=== PATIENT | female | born 1965 | race Caucasian/White ===

== ENCOUNTER 2019-04-28 15:35 | Inpatient (IN) | payer OTHER ==
[~2019-04-28] VITALS: Ht 165.1 cm; Wt 74.9 kg
--- NOTE | ~2019-04-28 | HC ---
[facility] [place] [address] CONSULTATION Name: ROBERT BOYD Room #: 204-P ADM IN M.R.#: [id number] Admission: 04/28/19 Attend Phys: Nba Lazaro MD Discharge: Date of : 63 Report #: [id number] THIS REPORT FOR: cc: Fidel Bernstein MD, Shyam MD Al-Absi,Kel Pires MD ~ CC: Nba Bernstein DATE OF SERVICE: 04/28/2019 REASON FOR CONSULTATION: Elevated creatinine. REASON FOR PRESENTATION: Shortness of breath. HISTORY OF PRESENT ILLNESS: A 54-year-old with past medical history of diabetes mellitus, hypertension, lower extremity amputation. She is also known to have COPD. The patient has never been evaluated in our facility before. She presented reporting that she has been having issues with the shortness of breath. Apparently, the patient has been hospitalized at another facility, [facility] for what she describes as pneumonia and has required some antibiotics. Details of those hospitalizations are not available. The patient resides in a nursing facility and she was found to have extensive lower extremity edema and worsening shortness of breath for which she was sent to the Emergency Room. She was found to be extremely hypoxemic. She was admitted to further evaluate her pulmonary status after she was found to have hypoxemia, metabolic acidosis and worsening pulmonary infiltrates. The patient's creatinine on presentation was elevated at 2.6. The patient denies prior knowledge of any kidney problems. We do not know her baseline. I was consulted to assist with the management of her chronic kidney disease, potential acute kidney injury. ALLERGIES: Numerous and they are listed in the medical chart. AMONGST THEM AMOXICILLIN, AZITHROMYCIN, CIPROFLOXACIN, DOXYCYCLINE MEDICATIONS: 1. Nifedipine. 2. Vancomycin. 3. Furosemide. 4. Levothyroxine. 5. Zestril. 6. Insulin. PAST MEDICAL HISTORY: 1. Diabetes mellitus. 2. Hypertension. [facility] [address] [place] [address] CONSULTATION Name: ROBERT BOYD Room #: [facility] IN .R.#: [id number] Admission: 04/28/19 Attend Phys: Nba Lazaro MD Discharge: Date of : 63 Report #: [id number] 3. Chronic opiate dependence. 4. Anxiety. 5. Lower extremity amputation. 6. Hypothyroidism. 7. Recent prolonged hospitalizations for what she describes as pneumonia. 8. Recent PICC line with vancomycin initiation. SOCIAL HISTORY: Resides in a nursing facility. There is significant history of smoking in the past. FAMILY HISTORY: Hypertension. REVIEW OF SYSTEMS: GENERAL: Significant for fever and chills. CARDIOVASCULAR: Significant for shortness of breath. PULMONARY: Significant for cough, oxygen dependence, shortness of breath. GASTROINTESTINAL: No nausea or vomiting. GENITOURINARY: No frequency, no urgency. MUSCULOSKELETAL: She is an amputee. PHYSICAL EXAMINATION: GENERAL: She was very anxious when evaluated this morning, temperature was 36.5, pulse rate was 83, and blood pressure was 166/90. HEAD AND NECK: Elevated jugular venous pressure. CHEST: Bilateral rhonchi and crackles. CARDIOVASCULAR: Regular with no rub. ABDOMEN: Soft, nontender with extensive abdominal wall edema. LOWER EXTREMITIES: She is an amputee on the left side. She has extensive anasarca. LABORATORY DATA: Reviewed. Hemoglobin is 6.7. Sodium is 141, potassium 3.8, chloride is 110, carbon dioxide is 19, BUN is 65 and creatinine is 2.6. IMPRESSION AND PLAN: 1. Chronic kidney disease. 2. Anasarca. 3. Metabolic acidosis. 4. Anemia. 5. Extensive chronic lung changes on the chest x-ray. 6. We really do not have the patient's previous kidney levels. It would be very helpful to obtain her medical records from [facility]. I will initiate the appropriate workup for the elevated creatinine with appropriate laboratory and imaging investigations. 7. Discussed with Dr. Lazaro, the patient's pulmonary status has worsened and she will need to initiated on Lasix drip for better control of her pulmonary edema and volume status. [address] [address] CONSULTATION Name: ROBERT BOYD Room #: 204-P ADM IN M.R.#: [id number] Admission: 04/28/19 Attend Phys: Nba Lazaro MD Discharge: Date of : 63 Report #: [id number] 8. Transferred to the ICU. 9. Place Looney catheter. 10. She has old criteria of right-sided heart failure, cor pulmonale and her pulmonary artery pressure was significantly elevated on the cardiac echo. She is at risk of decompensation with the diuresis. 11. Anemia workup. 12. Very guarded prognosis and we will continue to follow. By: [id number] Kel Li MD /nt
[~2019-04-28 15:35] MED LIST: VANCOMYCIN750 MG/151 IV
[2019-04-28 15:43] VITALS: BP 116/69
[2019-04-28 16:26] LABS: HCO3 16.9 mmol/L (22.0-26.0); PCO2 36.6 mmHg (35.0-45.0); PO2 105.7 mmHg (80.0-100.0); sO2 97.3 % (92.0-98.0)
[2019-04-28 16:27] LABS: pH 7.283 (7.360-7.450)
[2019-04-28 17:02] LABS: ABSOLUTE NEUTROPHILS 4.8 thou/uL (1.4-8.2); BASOPHILS 1.4 % (0.0-2.0); EOSINOPHILS 1.6 % (0.0-3.0); HEMATOCRIT 22.7 % (37.0-47.0); HEMOGLOBIN 7.1 gm/dL (12.0-15.0); LYMPHOCYTES 13.7 % (24.0-44.0); MCH 26.9 pg (26.0-34.0); MCHC 31.4 g/dL (28.0-37.0); MCV 85.8 fL (80.0-100.0); MONOCYTES 9.7 % (1.0-8.0); PLATELET COUNT 207 thou/uL (150-400); POLYS 73.6 % (36.0-66.0); RBC 2.65 mil/uL (4.20-5.00); RDW 18.7 % (10.5-14.5); WBC 6.6 thou/uL (4.0-11.0)
[2019-04-28 17:12] LABS: ANION GAP 10 mmol/L (7-16); BUN 68 mg/dL (7-18); CALCIUM 7.8 mg/dL (8.5-10.1); CHLORIDE 111 mmol/L (98-107); CO2 21 mmol/L (21-32); CREATININE 2.6 mg/dL (0.6-1.0); GLUCOSE 48 mg/dL (74-106); POTASSIUM 3.5 mmol/L (3.5-5.1); SODIUM 142 mmol/L (136-145)
[2019-04-28 17:20] LABS: TROPONIN-I <0.06 ng/mL (<0.06)
[2019-04-28 18:11] VITALS: BP 111/64
[2019-04-28] MEDS ORDERED: NIFEDIPINE ER30 M1 PO (18:39)
[2019-04-28] MEDS ORDERED: PROTONIX40 M2 PO (18:39)
[2019-04-28] MEDS ORDERED: TRAMADOL 50 MG50 MG PO (18:40)
[2019-04-28] MEDS ORDERED: PROBIOTIC250 MG PO (18:40)
[2019-04-28] MEDS ORDERED: MEPILEX1 EACH TOP (18:41)
[2019-04-28] MEDS ORDERED: ASA81BEC PO (18:42)
[2019-04-28] MEDS ORDERED: ALBUTEROL2.5 MG/31 INH (18:42)
[2019-04-28] MEDS ORDERED: BUSPIRONE HCL10 MG PO (18:43)
[2019-04-28] MEDS ORDERED: MAXIPIME1 GM IV (18:44)
[2019-04-28] MEDS ORDERED: BENTYL 10 MG CA10 MG PO (18:44)
[2019-04-28] MEDS ORDERED: FUROSEMIDE 20 M20 MG PO (18:44)
[2019-04-28] MEDS ORDERED: MUCUS RELIEF600 M1 PO (18:45)
[2019-04-28] MEDS ORDERED: LORCET 5-325 M1 EACH PO (18:45)
[2019-04-28] MEDS ORDERED: ZESTRIL40 MG PO (18:46)
[2019-04-28] MEDS ORDERED: LEVO-T50 MCG PO (18:46)
[2019-04-28] MEDS ORDERED: LANTUS SUBQ (18:46)
[2019-04-28] MEDS ORDERED: HUMULIN R500 UNIT/M SUBQ (18:49)
--- NOTE | 2019-04-28 19:26 | NUR ---
ATTEMPTED TO CALL REPORT TO CCU AT 1825. US TRANSFERRED CALL TO NURSE WHO DID NOT ANSWER. CALLED BACK AT 1840 AND NURSE STATED ROOM WAS DIRTY AND PLACED ME ON HOLD AND NEVER CAME BACK TO PHONE. ATTEMPTED TO CALL REPORT AGAIN AT THIS TIME WITH NO ANSWER
[2019-04-28 20:17] VITALS: BP 127/79
[2019-04-28 20:30] VITALS: BP 131/66
[2019-04-29 00:16] VITALS: BP 133/74
[2019-04-29 04:45] VITALS: BP 130/65
[2019-04-29 06:06] LABS: HEMOGLOBIN 6.7 gm/dL (12.0-15.0); MONOCYTES 10.5 % (1.0-8.0)
[2019-04-29 06:09] LABS: ABSOLUTE NEUTROPHILS 4.2 thou/uL (1.4-8.2); HEMATOCRIT 20.9 % (37.0-47.0); LYMPHOCYTES 19.1 % (24.0-44.0); MCH 27.5 pg (26.0-34.0); MCHC 32.1 g/dL (28.0-37.0); MCV 85.6 fL (80.0-100.0); PLATELET COUNT 197 thou/uL (150-400); POLYS 67.4 % (36.0-66.0); RBC 2.44 mil/uL (4.20-5.00); RDW 18.8 % (10.5-14.5); WBC 6.3 thou/uL (4.0-11.0)
[2019-04-29 06:16] LABS: ANION GAP 12 mmol/L (7-16); BUN 65 mg/dL (7-18); CALCIUM 7.4 mg/dL (8.5-10.1); CHLORIDE 110 mmol/L (98-107); CO2 19 mmol/L (21-32); CREATININE 2.6 mg/dL (0.6-1.0); GLUCOSE 71 mg/dL (74-106); MAGNESIUM 2.5 mg/dL (1.8-2.4); POTASSIUM 3.8 mmol/L (3.5-5.1); SODIUM 141 mmol/L (136-145); TROPONIN-I <0.06 ng/mL (<0.06)
[2019-04-29 07:05] VITALS: BP 147/78
--- NOTE | 2019-04-29 07:36 | NUR ---
PT ARRIVED ON UNIT AROUND 2019 FROM ED. PT RESIDES AT [facility] WHERE OXYGEN LEVEL WAS AT 80%. PT ARRIVED ON UNIT ON 8L NONREBREATHER AND SATURATION AT 95%. PT VITALS WERE STABLE. PT MEDICATION LIST UPDATED PER PAPERWORK SENT FROM FACILITY. PT BLOOD SUGAR WAS AT 62. CALLED [facility] [employer] TENDER PHYSICIAN TO GET HYPOGLYCEMIC PROTOCOL ORDERED. PT GIVEN JUICE AND MEDICATION ACCORDING TO PROTOCOL. PT BLOOD SUGAR INCREASED TO 93. CALLED PHYSICIAN TO HAVE MEDICATIONS RESTARTED AND ADVISED THAT THE ATTENDING WOULD HANDLE. PT SLEPT THRU NIGHT AND AROUND 0600 AWAKENED IN PANIC STATING "I CANNOT BREATH. HELP ME. TURN THE OXYGEN UP" CONTACTED PHYSICIAN AND RECEIVED ORDERS FOR PRN BREATHING TREATMENTS. ADVISED PHYSICIAN THAT HGB WAS 6.7 AND WAS ADVISED THAT ATTENDING WOULD DECIDE FURTHER ACTIONS BASED ON PATIENTS MEDICAL HISTORY. PATIENT DOES NOT LIKE BEING IN THE ASSIGNED ROOM STATING CLOSTROPHIC. ADVISED THAT ONCE A NEW ROOM OPENED THAT WE COULD MOVE. ADMISSION ASSESSMENT CHARTED. CONSENTS NEED TO BE SIGNED. WILL CONTINUE TO MONITOR PATIENT CLOSELY.
[2019-04-29 08:18] LABS: % SATURATION 8 % (20-39); IRON 13 ug/dL (50-170); TIBC 160 ug/dL (250-450)
--- NOTE | 2019-04-29 10:30 | 2DMMODE ---
[facility] [place] [address] 2 D/M-MODE ECHOCARDIOGRAM Name: ROBERT BOYD Room #: 200-I ADM IN M.R.#: [id number] Admission: 04/28/19 Attend Phys: Nba Lazaro MD Discharge: Date of : 63 Report #: [id number] THIS REPORT FOR: cc: Fidel Bernstein MD, Shyam MD Lundgren,Aaron Brandt MD [facility] ~ APPROVED REPORT Study performed: 04/29/2019 09:27:56 EXAM: Comprehensive 2D, Doppler, and color-flow Echocardiogram Patient Location: Bedside Room #: 200 Status: routine BSA: 1.84 HR: 86 bpm BP: 130/65 mmHg Rhythm: NSR Other Information Study Quality: Good Indications Congestive Heart Failure COPD Diabetes Dyspnea Hypertension/HDD 2D Dimensions RVDd: 37.38 mm IVSd: 10.16 (7-11mm) LVOT Diam: 20.49 (18-24mm) LVDd: 47.64 mm PWd: 10.16 (7-11mm) Ascending Ao: 32.13 (22-36mm) LVDs: 30.83 (25-40mm) Aortic Root: 33.01 mm IVC: 25.00 mm Volumes Left Atrial Volume (Systole) Single Plane 4CH: 86.04 mL Single Plane 2CH: 47.08 mL LA ESV Index: 37.00 mL/m2 Aortic Valve AoV Peak Kevin.: 1.82 m/s [facility] [address] [place] [address] 2 D/M-MODE ECHOCARDIOGRAM Name: MARIA A BOYDNE Room #: 200-I ADM IN M.R.#: [id number] Admission: 04/28/19 Attend Phys: Nba Lazaro MD Discharge: Date of : 63 Report #: [id number] AO Peak Gr.: 13.32 mmHg LVOT Max P.77 mmHg LVOT Max V: 1.20 m/s ROSE Vmax: 2.17 cm2 Mitral Valve E/A Ratio: 1.2 MV Decel. Time: 189.31 ms MV E Max Kevin.: 1.29 m/s MV A Kevin.: 1.04 m/s MV PHT: 54.90 ms IVRT: 78.43 ms Pulmonary Valve PV Peak Kevin.: 1.16 m/s PV Peak Gr.: 5.39 mmHg Pulmonary Vein P Vein S: 0.79 m/s P Vein A: 0.29 m/s P Vein D: 0.49 m/s P Vein A Dur.: 78.4 msec P Vein S/D Ratio: 1.61 Tricuspid Valve TR Peak Kevin.: 3.53 m/s TR Peak Gr.: 49.85 mmHg PA Pressure: 65.00 mmHg Left Ventricle The left ventricle is normal size. There is normal LV segmental wall motion. There is normal left ventricular wall thickness. The left ventricular systolic function is normal. The left ventricular ejection fraction is within the normal range. LVEF is 60-65%. The left ventricular diastolic function is normal. Right Ventricle The right ventricle is normal size. The right ventricular systolic function is normal. Atria Left atrium is dilated. Right atrium is borderline dilated. Aortic Valve The aortic valve is normal in structure. No aortic regurgitation is present. There is no aortic valvular stenosis. Mitral Valve The mitral valve is normal in structure. Trace mitral regurgitation. No evidence of mitral valve stenosis. [facility] [address] [address] 2 D/M-MODE ECHOCARDIOGRAM Name: ROBERT BOYD Room #: 200-I ADM IN .R.#: [id number] Admission: 04/28/19 Attend Phys: Nba Lazaro MD Discharge: Date of : 63 Report #: [id number] Tricuspid Valve The tricuspid valve is normal in structure. There is mild tricuspid regurgitation. Estimated PAP 60 mmHg. There is moderate pulmonary hypertension. Pulmonic Valve The pulmonary valve is normal in structure. Trace pulmonic regurgitation. Great Vessels The aortic root is normal in size. The inferior vena cava is dilated with no inspiratory collapse. Pericardium Trace pericardial effusion. <Conclusion> 1. Normal echocardiogram with Doppler. Ejection fraction 65%. 2. Valvular heart disease was absent. No significant regurgitant or stenotic lesions. 3. Pulmonary artery systolic pressure of 60 mmHg. 4. No pericardial effusion <ELECTRONICALLY SIGNED> By: Aaron Tejada MD, [facility] 04/29/19 1029 1029 1029 Aaron Tejaad MD, [facility] /INF
[2019-04-29 11:47] LABS: BE(vivo) -10.3 mmol/L (-2 to +3); HCO3 15.3 mmol/L (22.0-26.0); PCO2 32.9 mmHg (35.0-45.0); sO2 82.2 % (92.0-98.0)
[2019-04-29 11:48] LABS: PO2 50.8 mmHg (80.0-100.0); pH 7.286 (7.360-7.450)
[2019-04-29 12:05] VITALS: BP 149/77
--- NOTE | 2019-04-29 12:07 | NUR ---
Initially RD alert for pressure ulcer indicated, however nursing does not report any pressure ulcers at this time. Chart further reviewed, admitted with CHF. Hx DM, left BKA. ST has assessed and recommend modified diet with swallow precautions. Pt has multiple food allergies indicated stating causes hives. dietary aware of these allergies. Pt reports fair appetite but usually eats well. Wts are up 30 lb from pt reported usual of 140 lb. Diuresing however did note may need dialysis if no improvement. Requesting glucerna shakes-ordered. Low nutrition risk with nutrition interventions in place
--- NOTE | 2019-04-29 15:02 | NUR ---
FAXED CLINICAL UPDATE TO [facility] RECEIVED CONFIRMATION AND LEFT MSG WITH CHRISTOPH IN ADM. DP TO FOLLOW.
--- NOTE | 2019-04-29 16:31 | NUR ---
OVER TO SEE PT ~1100 THIS AM. NO BEDS AVAILABLE IN ICU AT THAT TIME.THERE ARE STILL NO BEDS AVAILABLE TO TRANSFER PT OVER TO ICU.WHEN SEEN THE FIRST TIME,PT ON HER PHONE UPON ENTERING ROOM,ORDERING LUNCH.SATS VIA BEDSIDE MONITOR .93%. PT SPEAKING IN FULL SENTENCES.THIS TIME, UPON ENTERING ROOM,FLOOR LITERED W CUPS,SPOON,PT THROWING THINGS OFF BEDSIDE TABLE.PT DEMANDING TO HAVE FOLY CATHETER REMOVED.PUT THAT FLUFF IN ME,PER PT.LONG D/W PT RE:NEED FOR CATHETER,STRICT I&O-PT DOES NOT CARE-I WANT IT OUT.AGREED TO LET ME LISTEN TO HER.PT IS DESATTING W ANXIETY-PT HAVING WHAT RESEMBLES A TEMPER TANTRUM-
--- NOTE | 2019-04-29 16:35 | NUR ---
Case opened to follow for dc planning. Pt currently awaiting transfer to ICU d/t renal/pulm status. Lasix gtt, iv atb, highflow o2 and pulse ox. She is normally on 4liters of o2 and non ambulatory d/t lt bka. She functions at a w/c level and and needs assit with transfers and bathing and dressing. She is a&o3 but anxious and irritable. She has limited insight into her situation. She reports she has been at [facility] lt for a week getting iv atb and therapy.She admitted to [facility] from [facility] and states she lived with friends prior to that. She indicates her next of kin and emergency contact is her son Brent Driscoll. She has been trying to reach him today. [facility] noted that they notified him of her transfer to the hospital. She is and does not want her ex to be contacted. She does maintain contact with her ex sister in law Cathleen Jenkins [phone]. She is aware that [facility] is holding her bed and we will keep them updated for her return there at al. She is agreeable. [place] attempted to contact her son at the number listed with no answer. Pt reports she struggles with copd and depression and anxiety. Will follow.
--- NOTE | 2019-04-29 20:09 | NUR ---
AAOX4. C/O CLAUSTRAPHOBIA; MOVED OUT OF ROOM 200 D/T DOUBLE DOORS. WON'T LEAVE NONREBREATHER IN PLACE, NC PLACED. ABG'S ACIDOTIC, READ TO DR. BOSS. ORDER TO TRANSFER TO ICU. [facility] CALLED BUT NO ICU BEDS TO BE HAD. REPEATEDLY ORDERS COFFEE FROM DIFFERENT STAFF, WANTS THEM REHEATED, AND NEVER DRINKS THEM. CONSTANT CALL LIGHT. CONSTANT COMPLAINTS OF ONE KIND OR ANOTHER. DELANEY PLACED ORDERED ONCE LASIX DRIP ORDERED. SHE HAD BEEN FREQUENTLY INCONTINENT OF URINE, REQUIRING SEVERAL BED CHANGES. COMPLAINED ABOUT DELANEY EVER SINCE IT WAS PLACED, DEMANDING ITS REMOVAL. STATED IF DR. BOSS DID NOT ORDER ITS REMOVAL SHE WOULD "BREAK HIS XIOMARA OFF." SR PER TELE.
[2019-04-29 20:23] VITALS: BP 166/90
[2019-04-29 23:39] LABS: URINE BILIRUBIN NEGATIVE (Negative); URINE BLOOD 1+ (Negative); URINE CLARITY CLOUDY; URINE COLOR YELLOW; URINE GLUCOSE-RANDOM* TRACE (Negative); URINE KETONES NEGATIVE (Negative); URINE NITRITE-REFLEX NEGATIVE (Negative); URINE PROTEIN (DIPSTICK) 2+ (Negative); URINE UROBILINOGEN 0.2 E.U./dl (0.2-1.0)
[2019-04-29 23:41] LABS: URINE LEUKOCYTES-REFLEX 1+ (Negative)
[2019-04-30 00:31] LABS: SQUAMOUS 0-3 Few /LPF (0-3)
[2019-04-30 00:32] LABS: BACTERIA-REFLEX 1-9 Few /HPF (None Seen); CELLULAR CASTS 0-3 Few /LPF (None Seen); CRYSTALS None Seen /LPF (None Seen); HYALINE CASTS 0-3 Few /LPF (None Seen); MUCUS 0-3 Light strn/LPF (None Seen); URINE RBC 3-10 Few /HPF (0-2); WBC CLUMPS Moderate (None Seen)
[2019-04-30 04:50] VITALS: BP 174/85
[2019-04-30 06:14] LABS: ABSOLUTE NEUTROPHILS 5.7 thou/uL (1.4-8.2); BASOPHILS 1.3 % (0.0-2.0); EOSINOPHILS 1.3 % (0.0-3.0); HEMATOCRIT 23.6 % (37.0-47.0); HEMOGLOBIN 7.4 gm/dL (12.0-15.0); LYMPHOCYTES 9.7 % (24.0-44.0); MCH 26.9 pg (26.0-34.0); MCHC 31.5 g/dL (28.0-37.0); MCV 85.5 fL (80.0-100.0); MONOCYTES 6.3 % (1.0-8.0); PLATELET COUNT 221 thou/uL (150-400); POLYS 81.4 % (36.0-66.0); RBC 2.76 mil/uL (4.20-5.00); RDW 19.2 % (10.5-14.5)
[2019-04-30 06:27] LABS: ALBUMIN 1.3 g/dL (3.4-5.0); CALCIUM 8.2 mg/dL (8.5-10.1); CREATININE 2.2 mg/dL (0.6-1.0); POTASSIUM 3.4 mmol/L (3.5-5.1); TOTAL BILIRUBIN 0.2 mg/dL (<0.1-1.0); TOTAL PROTEIN 5.7 g/dL (6.4-8.2)
[2019-04-30 07:13] LABS: URINE BILIRUBIN NEGATIVE (Negative); URINE BLOOD 1+ (Negative); URINE CLARITY CLEAR; URINE COLOR YELLOW; URINE GLUCOSE-RANDOM* 1+ (Negative); URINE KETONES NEGATIVE (Negative); URINE LEUKOCYTES TRACE (Negative); URINE NITRITE NEGATIVE (Negative); URINE PROTEIN (DIPSTICK) 2+ (Negative); URINE UROBILINOGEN 0.2 E.U./dl (0.2-1.0)
[2019-04-30 07:15] VITALS: BP 165/77
[2019-04-30 07:22] LABS: BACTERIA None Seen /HPF (None Seen); CASTS None Seen /LPF (None Seen); CRYSTALS None Seen /LPF (None Seen); MUCUS 0-3 Light strn/LPF (None Seen); SQUAMOUS 0-3 Few /LPF (0-3); URINE RBC 0-2 Rare /HPF (0-2); URINE WBC 6-15 Few /HPF (0-5); WBC CLUMPS Few (None Seen); YEAST Present (None Seen)
[2019-04-30 07:36] LABS: URINE CREATININE-RANDOM* <13 mg/dL; URINE PROTEIN-RANDOM* 170.5 mg/dL (<11.9); URINE SODIUM-RANDOM* 123 mmol/L
[2019-04-30 08:02] LABS: ANISOCYTOSIS 1+
--- NOTE | 2019-04-30 08:22 | NUR ---
1900, PT ALERT AND ORIENTED. WANTING TO DRINK FLUIDS AND COFFEE CONSTANTLY. PT PICKING ON HER HEAD BECAUSE, " YOU PEOPLE MAKE ME MAD" SHE SAYS. TOOK TELE MONITOR OFF,AND WOULD NOT ALLOW TO BE REATTACHED. ATIVAN AND TRAMODOL GIVEN X 1 OVER NIGHT. PT STILL ON LASIX DRIP. GOOD URINE OUT PUT. WILL CONTINUE TO MONITOR.
--- NOTE | 2019-04-30 09:17 | EKG ---
[facility] [place] [address] ELECTROCARDIOGRAM REPORT Name: ROBERT BOYD Room #: 204-P ADM IN M.R.#: [id number] Admission: 04/28/19 Attend Phys: Nba Lazaro MD Discharge: Date of : 63 Report #: [id number] THIS REPORT FOR: cc: Fidel Bernstein MD, Shyam MD Lundgren,Aaron Brandt MD [facility] ~ THIS REPORT FOR: //name// [facility] ED Test Date: 2019-04-28 Test Time: 15:38:28 Pat Name: ROBERT BOYD Department: Room: 204 Gender: F Manager Decision Support: SHYANNE : 1965 Requested By: Gregorio Landaverde Order Number: [id number] MD: Aaron Tejada Measurements Intervals [place] Rate: 84 P: 64 HI: 122 QRS: 47 QRSD: 84 T: 83 QT: 389 QTc: 460 Interpretive Statements Sinus rhythm No significant abnormality No previous ECG available for comparison Electronically Signed On 04-30-2019 9:16:03 URGENT CARE by Aaron Tejada [email or web address] <ELECTRONICALLY SIGNED> By: Aaron Tejada MD, [facility] 04/30/19 0916 1538 1538 Aaron Tejada MD, [facility] /EPI
--- NOTE | 2019-04-30 09:28 | EKG ---
[facility] [place] [address] ELECTROCARDIOGRAM REPORT Name: ROBERT BOYD Room #: 204- ADM IN M.R.#: [id number] Admission: 04/28/19 Attend Phys: Nba Lazaro MD Discharge: Date of : 63 Report #: [id number] THIS REPORT FOR: cc: Fidel Bernstein MD, Shyam MD Lundgren, Craig H. MD [facility] ~ THIS REPORT FOR: //name// [facility] Test Date: 2019-04-29 Test Time: 07:35:49 Pat Name: ROBERT BOYD Department: Room: [facility] Gender: F Ordnance Officer: RAJANI : 1965 Requested By: Nba Lazaro Order Number: [id number] MD: Aaron Tejada Measurements Intervals [place] Rate: 87 P: 55 FL: 119 QRS: 32 QRSD: 84 T: 60 QT: 362 QTc: 436 Interpretive Statements Sinus rhythm Ventricular premature complex Borderline short [place] interval Borderline T wave abnormalities No previous ECG available for comparison Electronically Signed On 04-30-2019 9:27:52 VISION CARE ASSOCIATE by Aaron eTjada [email or web address] <ELECTRONICALLY SIGNED> By: Aaron Tejada MD, [facility] 04/30/19 0927 0735 Araon Tejada MD, [facility] /EPI
[2019-04-30 11:20] VITALS: BP 148/65
[2019-04-30 15:35] VITALS: BP 147/77
--- NOTE | 2019-04-30 16:32 | EKG ---
[facility] [place] [address] ELECTROCARDIOGRAM REPORT Name: ROBERT BOYD Room #: 204- ADM IN M.R.#: [id number] Admission: 04/28/19 Attend Phys: Nba Lazaro MD Discharge: Date of : 63 Report #: [id number] THIS REPORT FOR: cc: Fidel Bernstein MD, Shyam MD [place],Dhiraj Swift MD ~ THIS REPORT FOR: //name// [facility] Test Date: 2019-04-30 Test Time: 07:35:59 Pat Name: ROBERT BOYD Department: Room: [facility] Gender: F Terminologist: RAJANI : 1965 Requested By: Aaron Tejada Order Number: [id number] MD: Dhiraj Cerna Measurements Intervals [place] Rate: 82 P: 44 MO: 118 QRS: 14 QRSD: 91 T: 58 QT: 401 QTc: 469 Interpretive Statements Sinus rhythm Borderline short [place] interval No previous ECG available for comparison Electronically Signed On 04-30-2019 16:31:04 CALL CENTER RECEPTIONIST by Dhiraj Cerna [email or web address] <ELECTRONICALLY SIGNED> By: Dhiraj Cerna MD 04/30/19 1631 4 4 Dhiraj Cerna MD /[place]
--- NOTE | 2019-04-30 16:49 | NUR ---
Silvia in admissions at [facility] called to check on the pt. She indicates that the pt's son did not respond to them either and the pt told her he is no longer talking to her. They are holding her bed and she no longer has an option to return to community living with the friend she lived with prior. They kicked her out. No weekend dc anticipated. will follow.
--- NOTE | 2019-04-30 17:26 | NUR ---
ASSUMED CARE PT SHIFT CHANGE. ASSESSMENTS CHARTED. MEDS GIVEN PER MAR. PT MUCH MORE CALM COMPARED TO PREVIOUS BEHAVIORS. PT DID NOT WANT DELANEY CATH IN ANYMORE, PHYSICIAN ORDER TO DC. EXTERNAL FEMALE CATH INITIATED. LASIX GTT CONTINUES AT 10. PT HAD DIARRHEA THROUGHOUT DAY- DR NOTIFIED, ORDERS RECEIVED. BS HIGH 300S, PHYSICIAN NOTIFIED. SSI INITIATED. PT NONCOMPLIANT WITH FLUIDS. DEMANDS DRINKS. PT ANXIOUS DURING AFTERNOON- MANAGED WITH IV ANTIANXIETY MEDS. C/O PAIN--MANAGED WITH PO PAIN MEDS. PT CURRENTLY EATING DINNER IN BED. DENIES NEEDS. WILL CONT TO MONITOR.
[2019-04-30 21:41] VITALS: BP 1419/57
[2019-05-01 00:30] VITALS: BP 132/59; BP 132/74
[2019-05-01 05:00] VITALS: BP 150/72
[2019-05-01 05:02] LABS: HEMATOCRIT 23.5 % (37.0-47.0); HEMOGLOBIN 7.4 gm/dL (12.0-15.0); MCH 26.9 pg (26.0-34.0); MCHC 31.4 g/dL (28.0-37.0); MCV 85.5 fL (80.0-100.0); RBC 2.75 mil/uL (4.20-5.00); WBC 5.2 thou/uL (4.0-11.0)
[2019-05-01 05:19] LABS: ALBUMIN 1.3 g/dL (3.4-5.0); CALCIUM 8.1 mg/dL (8.5-10.1); CREATININE 1.9 mg/dL (0.6-1.0); PHOSPHORUS 5.5 mg/dL (2.5-4.9)
--- NOTE | 2019-05-01 06:05 | NUR ---
ASSESSMENT DOCUMENTED.PT BEEN RESTING IN NO ACUTE DISTRESS.A/OX4.VSS.ON LASIX DRIP PER ORDERS.DIURESING WELL.SR ON MONITOR.PAIN GIVEN FOR C/O SHOULDER PAIN W/RELIEF.PT WAS HYPOGLYCEMIC AT 2100,BLOOD GLUCOSE 47,DEXTROSE GIVEN ORDERED 25MG PER IV PUSH,WITH STABLE BLOOD GLUCOSE OBTAINED.NO OTHER CONCERNS AT THIS TIME.WILL CONT TO MONITOR.
[2019-05-01 07:25] VITALS: BP 157/79
[2019-05-01 11:58] VITALS: BP 148/73
[2019-05-01 16:12] VITALS: BP 142/70
--- NOTE | 2019-05-01 19:44 | NUR ---
RECEIVED PT'S CARE AROUND 0730; PT. RESTING WITH EYES CLOSED; EQUAL CHEST RISING NOTICED; DURING AM ASSESSMENT ST. "I AM SHAKING" AND REQUESTED COFFEE; BS ON THE 170s; AM MEDICATION GIVEN; COUPLE IV MEDICATION SCHEDULED; CENTRAL LINE WITH ONE PORT; PT. EDUCATED ABOUT THE NEED OF ANOTHER IV; REFUSED IT; LASIX RUNNING; EDUCATED ABOUT THE IMPORTANCE OF MEDICATION REFUSED IT; LASIX STOPPED; IV SCHEDULED MEDICATION GIVEN; VACOMYCIN MEDICATION IV RE-SCHEDULED TO AFTERNOON; I/D NOTIFIED; DURING BREAKFAST HAD 2 CUPS OF COFFE; 2 SODAS CANS; ONE MILK CARTOON; EDUCATED ABOUT FLUID RESTRICTION; REFUSED IT; ST. "YOU ARE NOT GOING TO TELL ME WHAT TO DO"; I DID NOT REQUESTED THE KIDNET DOCTOR"; "I CAME BECAUSE I COULD NOT BREATH"; EDUCATED ABOUT THE REASON OF "KIDNEY DOCTOR" CONSULT; REFUSED IT; THROUGH THE DAY REQUESTED COFFE; REMAINED ABOUT FLUID RESTRICTION; UPSET; PER PHARMACY PT. NEEDS A VANCOMYCIN THROUGH; I/D PHYSICIAN NOTIFIED; REFUSED SLIDING SCALE; REQUESTED UNITS PER HOME; ASSESSMENT CHARGED; FOLLOWING POC; PASSED ON REPORT;
[2019-05-01 20:05] VITALS: BP 147/75
--- NOTE | 2019-05-02 03:14 | NUR ---
ASSESSMENT DOCUMENTED.PT BEEN RESTING IN NO ACUTE DISTRESS.A/OX4.PT NON-COMPLIANT W/PLAN OF CARE.REFUSING TREATMENT.ON FLUID RESTRICTION BUT WILL NOT FOLLOW IT THROUGH.DEMANDING STAFF TO BRING HER COFFEE ALL THE TIME AND THREATENING TO LEAVE AMA IF HER DEMANDS ARE NOT MET.REEDUCATED SEVERAL TIMES ON IMPORTANTANCE OF COMPLYING WITH PLAN OF CARE.SR ON MONITOR.ON OXYGEN AT 6LITERS PNC.PAIN MEDS ADMINISTERED PER ORDER FOR SHOULDER PAIN.REMAINS ON LASIX DRIP,DIURESING WELL.EXTERNAL CATHETER IN PLACE.INCONTINENT OF B&B.NO OTHER CONCERNS NOTED AT THIS TIME.WILL CONT TO MONITOR PER POC.
[2019-05-02 05:50] VITALS: BP 147/79
--- NOTE | 2019-05-02 06:21 | NUR ---
PT REFUSED LABS DRAWS THIS MORNING STATING.EDUCATED ON THE REASONS WHY WE ARE DOING LABS,PT STATED THAT SHE KNOWS AND SHE DOES WHAT SHE WANTS.TRIED A COUPLE OF TIMES,PT CONTINUED TO REFUSE.
[2019-05-02 07:30] VITALS: BP 152/82
[2019-05-02 07:44] LABS: ALBUMIN 1.3 g/dL (3.4-5.0); CALCIUM 8.1 mg/dL (8.5-10.1); CREATININE 1.7 mg/dL (0.6-1.0); PHOSPHORUS 4.4 mg/dL (2.5-4.9); POTASSIUM 3.1 mmol/L (3.5-5.1)
--- NOTE | 2019-05-02 13:39 | NUR ---
ASSUMED CARE AT SHIFT CHANGE, ALERT AND ORIENTED 3-4 AND FORGETFUL. PATIENT KEEP ASKING FOR COFFEE ALL THE TIME, [PATIENT ADVICED ON HER FLUID RESTRICTIONS, AND SHE STATED THAT SHE WILL DRINK WHAT SHE WANTED. PATIENT HAS LACERATION ON THE TOP O HER HEAD, AND SCAB ON THE LEFT ELBOW, PICTURES TAKEN, AND WOUND CARE TEAM CONSULTED. PATIENT INCONTINENT OF BOWEL AND BLADDAR,SHE HAD MULTIPLE BM AND DR NOTIFIED AND NEW ORDERS RECIEVED. POC MODIFIED AND WILL CONTINUE WITH POC.
[2019-05-02 16:00] VITALS: BP 139/64
[2019-05-02 20:23] VITALS: BP 116/56
--- NOTE | 2019-05-03 03:53 | NUR ---
Pt alert and oriented. Declining care. Refused NOC insulin. SR on the monitor. vss. External female catheter in use. Pt slept most of thwe night with minimal distruction. Pt still does not adhere to fluid restriction. Pt reeductated. But need re-education. Will continue to monitor.
[2019-05-03 05:28] VITALS: BP 153/80
[2019-05-03 08:22] LABS: ALBUMIN 1.4 g/dL (3.4-5.0); CALCIUM 7.8 mg/dL (8.5-10.1); CREATININE 1.5 mg/dL (0.6-1.0); PHOSPHORUS 4.3 mg/dL (2.5-4.9); POTASSIUM 3.3 mmol/L (3.5-5.1)
[2019-05-03 08:30] VITALS: BP 155/70
--- NOTE | 2019-05-03 11:27 | NUR ---
ASSUMED CARE AT 0700, SHIFT ASSESSMENT DONE, MEDS GIVEN, VSS. DENIES PAIN, NAUSEA, VOMITING. BS WAS 266 THIS AM, 10 UNITS OF INSULING GIVEN. NSR ON TELE, ON 5 L NASAL CANULA. WILL CONTINUE TO ASSESS AND ASSIST WITH ADLs NEEDED.
[2019-05-03 11:50] VITALS: BP 125/59
[2019-05-03] MEDS ORDERED: LOPERAMIDE 2 MG2 M1 PO (12:10)
[2019-05-03] MEDS ORDERED: DEMADEX20 MG PO (12:10)
[2019-05-03] MEDS ORDERED: VOLTAREN GEL 1100 G1 TOP (12:10)
[2019-05-03] MEDS ORDERED: CLONAZEPAM 0.50.5 M1 PO (12:10)
--- NOTE | 2019-05-03 13:46 | NUR ---
PT DISCHARGING TODAY TO [facility] FOR SKILLED STAY. FAXED DC ORDERS/SUMMARY TO FACILITY SPOKE WITH CHRISTOPH IN ADM SHE RECEIVED ORDERS AND ARRANGED TRANSPORT BY [facility] FOR [phone] TODAY. LEFT VOICEMAIL ON PT'S SON (MARIANA) TIME OF TRANSPORT. UNIT NOTIFIED AND CHART COPY PER US. RN TO CALL REPORT TO [phone].
== END 2019-05-03 19:05 | DRG 189 ==
LOC: ER 15:35 → 2N 17:36 → EDBD 17:36 → EROBS 17:36 → 2N 19:45
PROVIDERS: Emergency Medicine; Hospitalist; Internal Medicine; Specialist; ADMIT Internal Medicine
DX: J96.21 Acute and chronic respiratory failure with hypoxia (principal); G92 Toxic encephalopathy; I50.33 Acute on chronic diastolic (congestive) heart failure; E87.2 Acidosis; N17.9 Acute kidney failure, unspecified; E46 Unspecified protein-calorie malnutrition; E11.9 Type 2 diabetes mellitus without complications; F41.9 Anxiety disorder, unspecified; E03.9 Hypothyroidism, unspecified; N18.9 Chronic kidney disease, unspecified; G89.4 Chronic pain syndrome; E11.51 Type 2 diabetes mellitus with diabetic peripheral angiopathy without gangrene; E11.22 Type 2 diabetes mellitus with diabetic chronic kidney disease; D50.9 Iron deficiency anemia, unspecified; Z88.8 Allergy status to other drugs, medicaments and biological substances; Z88.2 Allergy status to sulfonamides; Z88.6 Allergy status to analgesic agent; Z88.1 Allergy status to other antibiotic agents; Z91.041 Radiographic dye allergy status; Z91.012 Allergy to eggs; Z79.891 Long term (current) use of opiate analgesic; Z82.49 Family history of ischemic heart disease and other diseases of the circulatory system; Z89.512 Acquired absence of left leg below knee; Z68.27 Body mass index [BMI] 27.0-27.9, adult
CPT/HCPCS: 10081

== ENCOUNTER 2019-05-09 09:23 | Emergency (ER) | payer OTHER ==
[~2019-05-09] VITALS: Ht 165.1 cm; Wt 68.0 kg
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
[~2019-05-09 09:23] MED LIST changes: +ALBUTEROL2.5 MG/31 INH; +ASA81BEC PO; +BENTYL 10 MG CA10 MG PO; +BUSPIRONE HCL10 MG PO; +CLONAZEPAM 0.50.5 M1 PO; +DEMADEX20 MG PO; +FUROSEMIDE 20 M20 MG PO; +HUMULIN R500 UNIT/M SUBQ; +LANTUS SUBQ; +LEVO-T50 MCG PO; +LOPERAMIDE 2 MG2 M1 PO; +LORCET 5-325 M1 EACH PO; +MAXIPIME1 GM IV; +MEPILEX1 EACH TOP; +MUCUS RELIEF600 M1 PO; +NIFEDIPINE ER30 M1 PO; +PROBIOTIC250 MG PO; +PROTONIX40 M2 PO; +TRAMADOL 50 MG50 MG PO; +VOLTAREN GEL 1100 G1 TOP; +ZESTRIL40 MG PO
[2019-05-09 09:50] LABS: ABSOLUTE NEUTROPHILS 4.6 thou/uL (1.4-8.2); BASOPHILS 1.4 % (0.0-2.0); EOSINOPHILS 2.1 % (0.0-3.0); HEMATOCRIT 25.7 % (37.0-47.0); HEMOGLOBIN 8.2 gm/dL (12.0-15.0); LYMPHOCYTES 11.9 % (24.0-44.0); MCH 27.5 pg (26.0-34.0); MCHC 32.1 g/dL (28.0-37.0); MCV 85.8 fL (80.0-100.0); MONOCYTES 7.8 % (1.0-8.0); PLATELET COUNT 231 thou/uL (150-400); POLYS 76.8 % (36.0-66.0); RDW 20.2 % (10.5-14.5)
[2019-05-09 10:00] LABS: ANION GAP 10 mmol/L (7-16); BUN 67 mg/dL (7-18); CALCIUM 8.1 mg/dL (8.5-10.1); CHLORIDE 107 mmol/L (98-107); CO2 25 mmol/L (21-32); GLUCOSE 84 mg/dL (74-106); POTASSIUM 3.1 mmol/L (3.5-5.1); SODIUM 142 mmol/L (136-145)
[2019-05-09 10:08] LABS: URINE BILIRUBIN NEGATIVE (Negative); URINE BLOOD 1+ (Negative); URINE CLARITY CLEAR; URINE COLOR YELLOW; URINE GLUCOSE-RANDOM* NEGATIVE (Negative); URINE KETONES NEGATIVE (Negative); URINE LEUKOCYTES-REFLEX 1+ (Negative); URINE NITRITE-REFLEX NEGATIVE (Negative); URINE PROTEIN (DIPSTICK) 2+ (Negative); URINE SPECIFIC GRAVITY 1.025 (1.005-1.035); URINE UROBILINOGEN 0.2 E.U./dl (0.2-1.0)
[2019-05-09 10:10] LABS: ALBUMIN 1.3 g/dL (3.4-5.0); DIRECT BILIRUBIN < 0.1 mg/dL (<0.1-0.2); SGOT 14 U/L (15-37); SGPT 16 U/L (30-65); TOTAL BILIRUBIN 0.2 mg/dL (<0.1-1.0); TOTAL PROTEIN 5.9 g/dL (6.4-8.2); TROPONIN-I <0.06 ng/mL (<0.06)
[2019-05-09 10:14] LABS: BACTERIA-REFLEX >30 Many /HPF (None Seen); CASTS None Seen /LPF (None Seen); CRYSTALS None Seen /LPF (None Seen); SQUAMOUS 0-3 Few /LPF (0-3); URINE RBC 0-2 Rare /HPF (0-2); URINE WBC-REFLEX >25 Many /HPF (0-5)
[2019-05-09 11:05] LABS: ANISOCYTOSIS 1+
[2019-05-09] MEDS ORDERED: PULMICORT FLEX90 MCG INH ×2 (11:25)
[2019-05-09] MEDS ORDERED: IPRATROPIU0.2 MG/1 M INH ×2 (11:25)
[2019-05-09] MEDS ORDERED: BENTYL 20 MG TA20 M1 PO ×2 (11:25)
--- NOTE | 2019-05-09 13:26 | EKG ---
[facility] [place] [address] ELECTROCARDIOGRAM REPORT Name: ROBERT BOYD Room #: [facility].#: [id number] Admission: 05/09/19 Attend Phys: Discharge: Date of : 63 Report #: [id number] THIS REPORT FOR: cc: Fidel Bernstein MD, Shyam MD Lundgren,Aaron Brandt MD [facility] ~ THIS REPORT FOR: //name// [facility] ED Test Date: 2019-05-09 Test Time: 09:28:38 Pat Name: ROBERT BOYD Department: Room: Gender: F Winderman: [facility] : 1965 Requested By: Yaima Dilsa Order Number: [id number] MD: Aaron Tejada Measurements Intervals [place] Rate: 90 P: 63 MN: 130 QRS: 49 QRSD: 95 T: 66 QT: 391 QTc: 479 Interpretive Statements Sinus rhythm Nonspecific T abnormalities, lateral leads Baseline wander in lead(s) I,III,aVL,aVF Compared to ECG 04/30/2019 07:35:59 no significant change was found Electronically Signed On 05-09-2019 13:25:41 CDT by Aaron Tejada [email or web address] <ELECTRONICALLY SIGNED> By: Aaron Tejada MD, [facility] 05/09/19 1325 7 Aaron Tejada MD, [facility] /EPI
[2019-05-09 14:06] VITALS: BP 140/77
== END 2019-05-09 14:05 | disposition home or self-care (01) ==
LOC: ER 09:23
PROVIDERS: Emergency Medicine
DX: R07.89 Other chest pain (principal); R06.02 Shortness of breath; M79.89 Other specified soft tissue disorders; L53.9 Erythematous condition, unspecified; R19.7 Diarrhea, unspecified; R14.0 Abdominal distension (gaseous); E03.9 Hypothyroidism, unspecified; I11.0 Hypertensive heart disease with heart failure; I50.9 Heart failure, unspecified; Z79.899 Other long term (current) drug therapy; Z79.82 Long term (current) use of aspirin; Z88.1 Allergy status to other antibiotic agents; Z91.018 Allergy to other foods; Z88.8 Allergy status to other drugs, medicaments and biological substances; Z91.012 Allergy to eggs; Z91.041 Radiographic dye allergy status; Z91.048 Other nonmedicinal substance allergy status; Z88.2 Allergy status to sulfonamides; Z87.891 Personal history of nicotine dependence; Z89.512 Acquired absence of left leg below knee

== ENCOUNTER 2019-05-10 08:08 | Inpatient (IN) | payer OTHER ==
[~2019-05-10] VITALS: Ht 165.1 cm; Wt 70.3 kg
[2019-05-10] VITALS (7 sets, daily range): BP systolic 130–171; BP diastolic 61–92
--- NOTE | ~2019-05-10 | HC ---
[facility] [place] [address] [place] [address] CONSULTATION Name: ROBERT BOYD Room #: 351-P [facility] IN M.R.#: [id number] Admission: 05/10/19 Attend Phys: Deacon Apple MD Discharge: 05/12/19 Date of : 63 Report #: [id number] THIS REPORT FOR: cc: Fidel Bernstein MD, Shyam MD Althoff,Peter Aguiar MD ~ CC: Deacon Bernstein DATE OF SERVICE: 05/11/2019 CHIEF COMPLAINT: Scalp and elbow ulcers. HISTORY OF PRESENT ILLNESS: This is a 54-year-old female patient who was admitted to the hospital with acute mental status changes. She was noted to have an ulceration on the top of her head as well as her left elbow. The patient states that she picks and scratches at her scalp quite a bit and thinks that it is the reason that the wound is there. She denies knowing about the elbow ulceration. PAST MEDICAL HISTORY: Positive history of pneumonia, hypertension, hypothyroidism, congestive heart failure, anxiety and left below knee amputation. SOCIAL HISTORY: Previous smoker. No alcohol use, no recreational drug use. MEDICATIONS: Include Protonix, probiotic, Ultram, AccuNeb, vancomycin, buspirone, Maxipime, Bentyl, guaifenesin, Lorcet and Levo-T. ALLERGIES: AMOXICILLIN, AZITHROMYCIN, CHEESE, CHICKEN, CIPROFLOXACIN, DIPHENHYDRAMINE, DOXYCYCLINE, EGGS, ERYTHROMYCIN, FENTANYL, GARLIC, INSULIN, IODINATED CONTRAST, LEVAQUIN, MEPERIDINE, METOCLOPRAMIDE, MORPHINE, ONDANSETRON, OXYCODONE, PAROXETINE, PROMETHAZINE, SERTRALINE, SOAP, SULFA, TOMATOES, TRIMETHOPRIM and UREA. REVIEW OF SYSTEMS: Limited. The patient has mental status changes and is not able to answer most questions and 14-point review of systems are negative other than that mentioned in history of present illness. PHYSICAL EXAMINATION: VITAL SIGNS: At this time include temperature 36.6, pulse 82, respiratory rate 18, blood pressure 131/60. GENERAL: This is a chronically ill-appearing female patient who was in no obvious distress. HEENT: Head demonstrates a circular ulceration to the top of the scalp with some surrounding alopecia. It is clean and granulating, does not have an [facility] [address] [place] [address] CONSULTATION Name: ROBERT BOYD Room #: 351-P DIS IN .R.#: [id number] Admission: 05/10/19 Attend Phys: Deacon Apple MD Discharge: 05/12/19 Date of : 63 Report #: [id number] abnormal appearance, does not appear to be infected. No deep structures were exposed. Nose and throat are clear. NECK: Supple. LUNGS: Clear. ABDOMEN: Soft. HEART: Regular rhythm. EXTREMITIES: Left elbow demonstrates what appears to be a stage 3 pressure ulcer over the olecranon process. No evidence of infection. Pale granulation tissue noted. NEUROLOGIC: The patient is alert, does move all 4 extremities spontaneously. She is disoriented. CLINICAL IMPRESSION: Ulceration to the scalp. Etiology is unclear. 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 I have discussed with her the possibility of biopsy. She is not agreeable to such at this time. We will recommend topical triamcinolone cream to help with the itching and then border foam to the left elbow daily. I appreciate being asked to see the patient in consultation. By: [id number] Peter Mei MD /nt
[~2019-05-10 08:08] MED LIST changes: +BENTYL 20 MG TA20 M1 PO; +IPRATROPIU0.2 MG/1 M INH; +PULMICORT FLEX90 MCG INH
[2019-05-10 08:32] LABS: URINE BILIRUBIN NEGATIVE (Negative); URINE BLOOD 1+ (Negative); URINE COLOR YELLOW; URINE GLUCOSE-RANDOM* NEGATIVE (Negative); URINE KETONES NEGATIVE (Negative); URINE LEUKOCYTES-REFLEX 1+ (Negative); URINE NITRITE-REFLEX NEGATIVE (Negative); URINE PROTEIN (DIPSTICK) 2+ (Negative); URINE UROBILINOGEN 0.2 E.U./dl (0.2-1.0)
[2019-05-10 08:33] LABS: URINE CLARITY HAZY
[2019-05-10 08:40] LABS: SQUAMOUS 0-3 Few /LPF (0-3)
[2019-05-10 08:41] LABS: AMORPHOUS URATES Few /LPF (None Seen); BACTERIA-REFLEX 1-9 Few /HPF (None Seen); CASTS None Seen /LPF (None Seen); URINE RBC 0-2 Rare /HPF (0-2); URINE WBC-REFLEX 6-15 Few /HPF (0-5)
[2019-05-10 08:56] LABS: BE(vivo) -1.4 mmol/L (-2 to +3); PCO2 43.6 mmHg (35.0-45.0); PO2 78.5 mmHg (80.0-100.0); pH 7.359 (7.360-7.450); sO2 95.1 % (92.0-98.0)
[2019-05-10 09:10] LABS: ABSOLUTE NEUTROPHILS 3.5 thou/uL (1.4-8.2); EOSINOPHILS 2.2 % (0.0-3.0); HEMATOCRIT 28.5 % (37.0-47.0); HEMOGLOBIN 8.9 gm/dL (12.0-15.0); LYMPHOCYTES 16.4 % (24.0-44.0); MCHC 31.3 g/dL (28.0-37.0); MCV 86.2 fL (80.0-100.0); MONOCYTES 7.6 % (1.0-8.0); PLATELET COUNT 240 thou/uL (150-400); POLYS 72.8 % (36.0-66.0); RBC 3.31 mil/uL (4.20-5.00); RDW 20.2 % (10.5-14.5); WBC 4.8 thou/uL (4.0-11.0)
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
[2019-05-10 09:28] LABS: ANION GAP 10 mmol/L (7-16); BUN 59 mg/dL (7-18); CALCIUM 8.2 mg/dL (8.5-10.1); CHLORIDE 104 mmol/L (98-107); CO2 25 mmol/L (21-32); CREATININE 1.8 mg/dL (0.6-1.0); GLUCOSE 74 mg/dL (74-106); POTASSIUM 3.3 mmol/L (3.5-5.1); SODIUM 139 mmol/L (136-145)
[2019-05-10 09:32] LABS: ALBUMIN 1.4 g/dL (3.4-5.0); DIRECT BILIRUBIN < 0.1 mg/dL (<0.1-0.2); SGOT 21 U/L (15-37); SGPT 19 U/L (30-65); TOTAL BILIRUBIN 0.2 mg/dL (<0.1-1.0); TOTAL PROTEIN 6.3 g/dL (6.4-8.2)
[2019-05-10 10:59] LABS: ANISOCYTOSIS 2+; MICROCYTES 2+; PLATELET ESTIMATE NORMAL
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
--- NOTE | 2019-05-10 19:58 | NUR ---
PT'S WOUNDS HAVE ASSESSED AND NEW DRESSING IN PLACE, PT DENIES PAIN AT THIS TIME, RN HAS TEACHING PT TO TURN Q2HR WITH ASSIST, PT UNDERSTANDS WELLL.
--- NOTE | 2019-05-10 23:15 | NUR ---
Pt A&Ox3 able to make need know. No complaints of pain or discomfort. Resting in bed comfortable watching television. Vital signs WNL see charting.
[2019-05-11 04:03] VITALS: BP 138/62
[2019-05-11 05:54] LABS: HEMATOCRIT 24.1 % (37.0-47.0); HEMOGLOBIN 7.6 gm/dL (12.0-15.0); MCH 27.3 pg (26.0-34.0); MCHC 31.3 g/dL (28.0-37.0); MCV 87.1 fL (80.0-100.0); RBC 2.77 mil/uL (4.20-5.00); RDW 20.5 % (10.5-14.5); WBC 4.9 thou/uL (4.0-11.0)
[2019-05-11 06:21] LABS: CALCIUM 7.5 mg/dL (8.5-10.1); CREATININE 1.8 mg/dL (0.6-1.0); POTASSIUM 3.3 mmol/L (3.5-5.1)
--- NOTE | 2019-05-11 06:54 | NUR ---
PATIENT RESTED COMFORTABLY THROUGHOUT THE NIGHT. NO COMPLAINTS OF PAIN OR DISCOMFORT. QUESTION MEDICATIONS GIVEN. TEACHING ON MEDS PROVIDED. NO COMPLAINTS OF PAIN OR DISCOMFORT. VITAL SIGN WNL
[2019-05-11 07:55] VITALS: BP 147/81
--- NOTE | 2019-05-11 12:57 | NUR ---
pt admitted at yestoday, pt's low temp and low BS have improved, pt is continuing IV abx for pneumonia, pt is on o2 3L/min/nc, pt's vs and o2sat are stable, RN has called dr about pt has 3 times diarrhea , order sned stool to check C-DIFF , C-DIFF contact isolation has applied.
--- NOTE | 2019-05-11 14:34 | NUR ---
WOUND CONSULT; ROUNDING WITH DR ROSENBERG. THE PATIENT HAS A WOUND TO THE TOP OF HER HEAD OF UNKNOWN ETIOLOGY OR AGE. THE WOUND IS LIKELY CONTAMINATED BUT NOT ACUTELY INFECTED. NO ERYTHEMA OR ACUTE PAIN. THE RIGHT ELBOW HAS A SMALL STAGE 2 PRESSURE ULCER. RECOMMENDATION; 1-AQUACEL AG TO HEAD WOUND, COVER WITH A FOAM DRESSING DAILY/PRN. 2-A BORDER FOAM TO THE LEFT ELBOW M/W/F PRN. DISCUSSED WITH FLORENCIA
[2019-05-11 15:35] VITALS: BP 140/68
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
[2019-05-11 19:15] VITALS: BP 131/60
[2019-05-12 04:34] LABS: CALCIUM 7.6 mg/dL (8.5-10.1); POTASSIUM 3.8 mmol/L (3.5-5.1)
[2019-05-12 04:41] LABS: HEMATOCRIT 24.7 % (37.0-47.0); HEMOGLOBIN 7.8 gm/dL (12.0-15.0); MCH 27.4 pg (26.0-34.0); MCHC 31.6 g/dL (28.0-37.0); MCV 86.8 fL (80.0-100.0); RBC 2.84 mil/uL (4.20-5.00); RDW 19.7 % (10.5-14.5); WBC 4.7 thou/uL (4.0-11.0)
[2019-05-12 04:45] VITALS: BP 127/57
--- NOTE | 2019-05-12 07:38 | NUR ---
PT MAKING PROGRESS TOWARDS GOALS. X3 LOOSE STOOLS OVERNIGHT. C-DIFF RESULT WAS NEGATIVE. IMMODIUM ORDERED AND GIVEN PER ORDERS.
[2019-05-12 07:45] VITALS: BP 147/77
--- NOTE | 2019-05-12 11:34 | NUR ---
CALLED THE FLOOR AND SPOKE TO FLORENCIA YOUNG. INFORMED HIM OF THE PT'S POSITIVE URINE CULTURE RESULTS.
--- NOTE | 2019-05-12 13:45 | NUR ---
Nutrition: pt seen due to wound risk. Per wound care, stage 2 left elbow wound and wound on top of head of unknown etiology and age. Pt reports good appetite but eating about 50% of meals due to bloating/early satiety. Recent diarrhea, C diff negative. Weight up 14# from UBW of 140#. 1+ right leg edema. Recent admit for CHF. Reports hx of IBS. Noted multiple allergies, foodservice aware. Hx DM and L BKA. BG 239-411. On regular diet, will add carb controlled. Pt edentulous but has previously refused recommended diet of mechanical soft by ST. Bradly Landin daily. D/C orders in place. Low risk.
--- NOTE | 2019-05-12 14:05 | NUR ---
DISCHARGE NOTE: SW reviewed chart and spoke with nursing and attending physician. Pt is medically stable for discharge today. SW met with pt at bedside to discuss discharge plan. Pt is wanting to discharge today and is agreeable with returning to [facility] and have the SW look for alternate placement. Pt states that she feels comfortable returning to the facility today. SW discussed with [facility] liaison, who states they are able to accept pt. Liaison to notify facility SW to start working on finding a new facility, and to ensure pt will have some clothes at the facility. Pt stated that she does not have any clothes at the hospital or back at the facility. Wheelchair van transportation scheduled for 1600 per facility's arrangements. SW faxed discharge orders/summary to [facility]. Chart copy requested. Nursing to call report. No additional SW needs identified at this time, but is available to assist should needs arise.
[2019-05-12 15:28] VITALS: BP 145/64
--- NOTE | 2019-05-12 16:58 | NUR ---
assumed care of pt at 0700. pt aox2 in no acute distress. voicing many concerns and questions. anxious at times. cooperative with care. no signs of hallucinations. anticipate d/c back to centers at 1700. will cont to monitor.
== END 2019-05-12 18:00 | DRG 177 ==
LOC: ER 08:08 → EROBS 11:40 → 3W 13:40
PROVIDERS: Emergency Medicine; ADMIT Hospitalist
DX: J15.0 Pneumonia due to Klebsiella pneumoniae (principal); L89.023 Pressure ulcer of left elbow, stage 3; F11.20 Opioid dependence, uncomplicated; R44.3 Hallucinations, unspecified; I11.0 Hypertensive heart disease with heart failure; I50.9 Heart failure, unspecified; E03.9 Hypothyroidism, unspecified; Y95 Nosocomial condition; L98.499 Non-pressure chronic ulcer of skin of other sites with unspecified severity; E11.649 Type 2 diabetes mellitus with hypoglycemia without coma; G89.4 Chronic pain syndrome; F41.9 Anxiety disorder, unspecified; E87.6 Hypokalemia; Z87.01 Personal history of pneumonia (recurrent); Z89.512 Acquired absence of left leg below knee; Z79.899 Other long term (current) drug therapy; Z79.4 Long term (current) use of insulin; Z88.1 Allergy status to other antibiotic agents; Z91.018 Allergy to other foods; Z91.02 Food additives allergy status; Z88.2 Allergy status to sulfonamides; Z91.048 Other nonmedicinal substance allergy status; Z79.82 Long term (current) use of aspirin; Z87.891 Personal history of nicotine dependence
CPT/HCPCS: 10080; 10879

== ENCOUNTER 2019-05-20 07:40 | Emergency (ER) | payer OTHER ==
[~2019-05-20] VITALS: Ht 165.1 cm; Wt 63.5 kg
[2019-05-20 08:05] LABS: ABSOLUTE NEUTROPHILS 4.9 thou/uL (1.4-8.2); BASOPHILS 0.9 % (0.0-2.0); EOSINOPHILS 1.3 % (0.0-3.0); HEMATOCRIT 29.6 % (37.0-47.0); HEMOGLOBIN 9.4 gm/dL (12.0-15.0); LYMPHOCYTES 11.3 % (24.0-44.0); MCH 27.8 pg (26.0-34.0); MCHC 31.9 g/dL (28.0-37.0); MCV 87.2 fL (80.0-100.0); MONOCYTES 8.8 % (1.0-8.0); PLATELET COUNT 197 thou/uL (150-400); POLYS 77.7 % (36.0-66.0); RBC 3.39 mil/uL (4.20-5.00); RDW 18.9 % (10.5-14.5); WBC 6.3 thou/uL (4.0-11.0)
[2019-05-20 08:21] LABS: ANION GAP 8 mmol/L (7-16); BUN 61 mg/dL (7-18); CALCIUM 8.1 mg/dL (8.5-10.1); CHLORIDE 106 mmol/L (98-107); CO2 26 mmol/L (21-32); CREATININE 2.1 mg/dL (0.6-1.0); GLUCOSE 326 mg/dL (74-106); SODIUM 140 mmol/L (136-145)
[2019-05-20 08:31] LABS: ALBUMIN 1.5 g/dL (3.4-5.0); SGOT 25 U/L (15-37); SGPT 13 U/L (30-65); TOTAL BILIRUBIN 0.3 mg/dL (<0.1-1.0); TOTAL PROTEIN 6.3 g/dL (6.4-8.2); TROPONIN-I <0.06 ng/mL (<0.06)
[2019-05-20] MEDS ORDERED: MYLANTA MAXIMU355 ML PO (08:33)
[2019-05-20] MEDS ORDERED: ACETAMINOPHEN325 MG PO (08:34)
[2019-05-20 11:50] VITALS: BP 153/83
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
--- NOTE | 2019-05-20 12:22 | NUR ---
CXR CONFIRMED SVC PLACEMENT, PICC RELEASED TO CARMEN DON FOR IMMEDIATE USE PER PROTOCOL
== END 2019-05-20 11:50 ==
LOC: ER 07:40
PROVIDERS: Emergency Medicine
DX: R19.7 Diarrhea, unspecified (principal); L03.114 Cellulitis of left upper limb; F41.9 Anxiety disorder, unspecified; I11.0 Hypertensive heart disease with heart failure; I50.9 Heart failure, unspecified; E03.9 Hypothyroidism, unspecified; Z88.1 Allergy status to other antibiotic agents; Z91.041 Radiographic dye allergy status; Z88.5 Allergy status to narcotic agent; Z88.2 Allergy status to sulfonamides; Z91.012 Allergy to eggs; Z91.011 Allergy to milk products; Z87.891 Personal history of nicotine dependence; Z91.018 Allergy to other foods
CPT/HCPCS: 27000

== ENCOUNTER 2019-06-26 15:54 | Inpatient (IN) | payer OTHER ==
[2019-06-26] VITALS (8 sets, daily range): BP systolic 101–134; BP diastolic 57–76
[~2019-06-26] VITALS: Ht 165.1 cm; Wt 58.0 kg
[~2019-06-26 15:54] MED LIST changes: +ACETAMINOPHEN325 MG PO; +MYLANTA MAXIMU355 ML PO
[2019-06-26 16:23] LABS: ABSOLUTE NEUTROPHILS 5.3 thou/uL (1.4-8.2); BASOPHILS 0.7 % (0.0-2.0); EOSINOPHILS 0.6 % (0.0-3.0); HEMATOCRIT 31.1 % (37.0-47.0); HEMOGLOBIN 9.7 gm/dL (12.0-15.0); LYMPHOCYTES 11.6 % (24.0-44.0); MCH 27.2 pg (26.0-34.0); MCHC 31.3 g/dL (28.0-37.0); MCV 86.9 fL (80.0-100.0); MONOCYTES 9.1 % (1.0-8.0); PLATELET COUNT 257 thou/uL (150-400); RBC 3.58 mil/uL (4.20-5.00); RDW 16.4 % (10.5-14.5); WBC 6.8 thou/uL (4.0-11.0)
[2019-06-26 16:40] LABS: ALBUMIN 1.7 g/dL (3.4-5.0); CALCIUM 7.9 mg/dL (8.5-10.1); CREATININE 2.3 mg/dL (0.6-1.0); TOTAL BILIRUBIN 0.3 mg/dL (<0.1-1.0); TOTAL PROTEIN 7.1 g/dL (6.4-8.2)
[2019-06-26 16:44] LABS: URINE BILIRUBIN NEGATIVE (Negative); URINE BLOOD 2+ (Negative); URINE CLARITY SL CLOUDY; URINE COLOR YELLOW; URINE GLUCOSE-RANDOM* 1+ (Negative); URINE KETONES NEGATIVE (Negative); URINE NITRITE-REFLEX NEGATIVE (Negative); URINE PROTEIN (DIPSTICK) 2+ (Negative); URINE SPECIFIC GRAVITY 1.025 (1.005-1.035); URINE UROBILINOGEN 0.2 E.U./dl (0.2-1.0)
[2019-06-26 16:45] LABS: URINE LEUKOCYTES-REFLEX 2+ (Negative)
[2019-06-26 16:50] LABS: BACTERIA-REFLEX >30 Many /HPF (None Seen)
[2019-06-26 16:51] LABS: CASTS None Seen /LPF (None Seen); CRYSTALS None Seen /LPF (None Seen); SQUAMOUS 0-3 Few /LPF (0-3); URINE RBC 0-2 Rare /HPF (0-2); URINE WBC-REFLEX >25 Many /HPF (0-5)
[2019-06-26 17:02] LABS: POTASSIUM 3.8 mmol/L (3.5-5.1)
[2019-06-26 17:18] LABS: LIPASE 115 U/L (73-393); TROPONIN-I <0.06 ng/mL (<0.06)
[2019-06-26 18:09] LABS: BE(vivo) -15.7 mmol/L (-2 to +3); PCO2 VENOUS 35.4 mmHg (41.0-51.0); PO2 VENOUS 59.8 mmHg (35.0-45.0)
[2019-06-26 22:40] LABS: ALBUMIN 1.5 g/dL (3.4-5.0); CALCIUM 7.3 mg/dL (8.5-10.1); CREATININE 2.1 mg/dL (0.6-1.0); MAGNESIUM 1.7 mg/dL (1.8-2.4); POTASSIUM 3.4 mmol/L (3.5-5.1)
--- NOTE | 2019-06-26 23:06 | EKG ---
[facility] [place] [address] [place] [address] ELECTROCARDIOGRAM REPORT Name: ROBERT BOYD Room #: 239-P ADM IN M.R.#: [id number] Admission: 06/26/19 Attend Phys: Aj Curiel MD Discharge: Date of : 63 Report #: [id number] THIS REPORT FOR: cc: Fidel Bernstein MD, Shyam MD Couchonnal, Luis F. 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: NO : 1965 Requested By: Maddie Dow Order Number: [id number] MD: Quinn Rhodes Measurements Intervals Effort Rate: 90 P: 48 WY: 169 QRS: 33 QRSD: 98 T: 62 QT: 393 QTc: 481 Interpretive Statements Sinus rhythm Probable left atrial enlargement Left ventricular hypertrophy Compared to ECG 05/09/2019 09:28:38 Left ventricular hypertrophy now present T-wave abnormality no longer present Electronically Signed On 06-26-2019 23:05:05 CDT by Quinn Rhodes [email or web address] <ELECTRONICALLY SIGNED> By: Quinn Rhodes MD 06/26/195 30 30 Quinn Rhodes MD /EPI
[2019-06-27] VITALS (43 sets, daily range): BP systolic 102–165; BP diastolic 53–82
[2019-06-27 04:26] LABS: HEMATOCRIT 24.4 % (37.0-47.0); MCH 27.8 pg (26.0-34.0); MCHC 32.7 g/dL (28.0-37.0); MCV 85.1 fL (80.0-100.0); RBC 2.86 mil/uL (4.20-5.00); RDW 15.7 % (10.5-14.5); WBC 5.6 thou/uL (4.0-11.0)
[2019-06-27 04:35] LABS: CALCIUM 7.6 mg/dL (8.5-10.1); CREATININE 1.8 mg/dL (0.6-1.0); POTASSIUM 3.6 mmol/L (3.5-5.1)
--- NOTE | 2019-06-27 06:27 | NUR ---
ASSUMED CARE OF PATIENT FROM ER. ADMISSION COMPLETE. VERY ANXIOUS, AGITATED, ANGRY, TEARFUL. DEMANDING SODA AND COFFEE. ATTEMPTED TO EDUCATE PATIENT ABOUT DKA AND BLOOD SUGARS. PATIENT THEN REQUESTING PAIN MEDS FOR CHRONIC BACK PAIN. ORDERS RECIEVED FOR PAIN MEDS. ALLERGIES CLARIFIED AND UPDATED. INSULIN GTT INFUSING AND TITRATED PER PROTOCOL. POC GOALS ESTABLISHED.
[2019-06-27 09:25] LABS: ALBUMIN 1.4 g/dL (3.4-5.0); CALCIUM 7.6 mg/dL (8.5-10.1); CREATININE 1.5 mg/dL (0.6-1.0); MAGNESIUM 2.1 mg/dL (1.8-2.4); PHOSPHORUS 4.4 mg/dL (2.5-4.9); POTASSIUM 4.2 mmol/L (3.5-5.1)
--- NOTE | 2019-06-27 14:19 | NUR ---
1300.DR. OWEN ROUNDED ON PATIENT AND STATED TO RN TO NOT GIVE ZOSYN TO PT AT THIS TIME. HE WILL REVIEW PT'S CHART AND LET RN KNOW IF HE MAKES ANY CHANGES TO ANTIBIOTICS.
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
[2019-06-28] VITALS (15 sets, daily range): BP systolic 131–173; BP diastolic 64–86
[2019-06-28 02:06] LABS: GLYCOHEMOGLOBIN (HGB A1C) 9.7 % (4.8-5.6)
[2019-06-28 05:52] LABS: ABSOLUTE NEUTROPHILS 3.5 thou/uL (1.4-8.2); BASOPHILS 1.2 % (0.0-2.0); EOSINOPHILS 2.3 % (0.0-3.0); HEMATOCRIT 27.3 % (37.0-47.0); HEMOGLOBIN 8.9 gm/dL (12.0-15.0); LYMPHOCYTES 16.7 % (24.0-44.0); MCH 27.7 pg (26.0-34.0); MCHC 32.7 g/dL (28.0-37.0); MCV 84.7 fL (80.0-100.0); PLATELET COUNT 245 thou/uL (150-400); POLYS 69.8 % (36.0-66.0); RBC 3.22 mil/uL (4.20-5.00); RDW 16.1 % (10.5-14.5); WBC 5.1 thou/uL (4.0-11.0)
[2019-06-28 06:10] LABS: CALCIUM 7.8 mg/dL (8.5-10.1); CREATININE 1.1 mg/dL (0.6-1.0); POTASSIUM 4.3 mmol/L (3.5-5.1)
--- NOTE | 2019-06-28 10:33 | HC ---
[facility] [place] [address] CONSULTATION Name: ROBERT BOYD Room #: 239-P [facility] IN M.R.#: [id number] Admission: 06/26/19 Attend Phys: Aj Curiel MD Discharge: Date of : 63 Report #: [id number] THIS REPORT FOR: cc: Fidel Bernstein MD, Shyam MD Al-Mubaslat, Ahmad MD ~ CC: Aj Bernstein DATE OF SERVICE: 06/27/2019 ENDOCRINE CONSULTATION NOTE CONSULTING PHYSICIAN: Dr. Curiel. REASON FOR CONSULTATION: DKA, type 2 diabetes mellitus, hypothyroidism. HISTORY OF PRESENT ILLNESS: This is a 54-year-old female patient whose medical background is significant for multiple medical issues including type 2 diabetes mellitus, hypothyroidism, COPD, as well as chronic kidney disease. The patient presented yesterday with complaints of fatigue, tiredness that propagated gradually over the past week. It appears that the patient was diagnosed recently with a UTI as well. When questioned about her diabetes history, the patient indicated that she was diagnosed only 2 years ago and indicated that she receives insulin therapy at her group home facility, but was unable to give details as to the nature of her insulin regimen and was unable to provide details on the blood glucose pattern that she has had over the past few weeks, although she mentioned that she has had few episodes of hypoglycemia. The patient was difficult to obtain a meaningful history from as she was tearful and crying throughout most of my interview. Having reviewed the patient's skilled nursing records, it appears that she has been recently started on Lantus insulin 10 units daily. I was not able to find a specific documentation of blood glucose values in that regard. The patient is not aware of specific diabetic complications, but does note that she has chronic kidney disease without being able to offer more details. Also, the patient is known to have hypothyroidism and has been on chronic levothyroxine therapy that is currently at 50 mcg daily. REVIEW OF SYSTEMS: CONSTITUTIONAL: Fatigue, tiredness, question of fever, chills, poor appetite. HEENT: Negative for sore throat, sinus pain or ear drainage. PULMONARY: Occasional shortness of breath and cough. No hemoptysis. [address] [address] CONSULTATION Name: ROBERT BOYD Room #: 239-P [facility] IN M.R.#: [id number] Admission: 06/26/19 Attend Phys: Aj Curiel MD Discharge: Date of : 63 Report #: [id number] CARDIAC: Negative for chest pain, palpitations, syncope or presyncope. GASTROINTESTINAL: Abdominal discomfort, nausea, but no vomiting. NEUROLOGY: Negative for loss of consciousness, seizure activity or severe frequent headaches. SKIN: Negative for rash, ulceration or other major abnormalities. MUSCULOSKELETAL: Noted for sporadic nonspecific joint and muscle aches. Otherwise, review of systems noncontributory unless mentioned in HPI. PAST MEDICAL HISTORY: 1. Type 2 diabetes mellitus. As noted above. 2. Hypothyroidism. 3. Anemia. 4. Congestive heart failure. 5. Chronic kidney disease. 6. Chronic obstructive pulmonary disease. 7. Chronic pain syndrome, opiate dependence. 9. Anxiety. 10. Status post left BKA. OUTPATIENT MEDICATIONS: Include: 1. Mylanta. 2. Acetaminophen. 3. Protonix 40 mg daily. 4. Probiotics daily. 5. Ultram 50 mg q. 6 hours p.r.n. 6. Albuterol q. 4 hours p.r.n. 7. Aspirin 81 mg daily. 8. Buspirone 10 mg b.i.d. 9. Maxipime. 10. Lorcet q. 4 hours p.r.n. 11. Levothyroxine 50 mcg daily. 12. Lantus insulin 10 units daily. DRUG ALLERGIES: Include: 1. AMOXICILLIN. 2. AZITHROMYCIN. 3. CHEESE. 4. CHICKEN. 5. CIPROFLOXACIN. 6. DIPHENHYDRAMINE. 7. DOXYCYCLINE. 8. EGGS. 9. ERYTHROMYCIN. 10. FENTANYL. 11. GARLIC. 12. HUMALOG INSULIN, INSULIN LISPRO. [address] [address] CONSULTATION Name: ROBERT BOYD Room #: 239-P [facility] IN M.R.#: [id number] Admission: 06/26/19 Attend Phys: Aj Curiel MD Discharge: Date of : 63 Report #: [id number] 13. IODINATED CONTRAST. 14. LEVOFLOXACIN. 15. MEPERIDINE. 16. METOCLOPRAMIDE. 17. MORPHINE. 18. ONDANSETRON. 19. OXYCODONE 20. PAROXETINE. 21. PREDNISONE. 22. PROMETHAZINE. 23. SERTRALINE. 24. SOAP. 25. SULFA. 26. TOMATO. 27. TRIMETHOPRIM. 28. ____. FAMILY HISTORY: Noncontributory. SOCIAL HISTORY: She lives in a group home facility. There is no active alcohol or illicit drug use. She is a former smoker. PHYSICAL EXAMINATION: GENERAL: female patient who appears uncomfortable. She was tearful and crying throughout most of my interview, but not in apparent pain. VITAL SIGNS: Blood pressure 102/60 mmHg, heart rate is 77 beats per minute, respirations 17 per minute, temperature 36.3 degrees Celsius. CONSTITUTIONAL: Appears tearful and uncomfortable, but not in pain. HEENT: Anicteric sclerae. Intact extraocular motions. NECK: Supple, without JVD or carotid bruits. I do not appreciate thyromegaly. CHEST: Noted for moderate entry bilaterally with scattered rales and rhonchi. HEART: Regular rate and rhythm without murmurs or gallops. ABDOMEN: Soft, lax. No tenderness or organomegaly. No guarding. Has active bowel sounds. EXTREMITIES: Lower extremity exam is noted for status post left BKA. Right ankle edema trace. Sensation to light touch is moderately diminished. I do not appreciate pedal pulses over her right foot. NEUROLOGIC: Awake, alert, moves all limbs spontaneously. Has peripheral sensory deficits. PSYCHIATRIC: Appears anxious, distressed, tearful, crying, able to answer most of my questions, but seemingly has difficulty formulating thoughts. LABORATORY RESULTS: Blood glucose on arrival was over 500 and has gradually descended to 400s and 300s, most recent blood glucose was at 180, then 85 mg/dL. Sodium is 140, potassium is 4.2, chloride 112, CO2 of 18, anion gap 10. On arrival was at 18, BUN 81, creatinine 1.5, glucose 191, AST 11, lipase 115, [facility] [address] [place] [address] CONSULTATION Name: ROBERT BOYD Room #: 239-P [facility] IN Dina#: [id number] Admission: 06/26/19 Attend Phys: Aj Curiel MD Discharge: Date of : 63 Report #: [id number] total bilirubin 0.3, direct bilirubin less than 0.1, calcium 7.6, phosphorus 4.4, magnesium 2.1, alkaline phosphatase 237, ALT 12, total protein 7.1, albumin 1.4, EGFR 36. Lactic acid 0.8. Troponin negative. BNP 6019. Iron 13, white blood count 5.6, hemoglobin 8.0, hematocrit 24.4, platelets 221. COVID-19 test is pending. TSH in 05/2019 was 7.107. ASSESSMENT AND PLAN: 1. Diabetic ketoacidosis. The patient presents in DKA, judging by the slightly high anion gap as well as the documentation of severe hyperglycemia, approaching 800 mg/dL. This is very suggestive of severe insulin deficiency. This might have been exacerbated by the current outlook of infection and potential septicemia. The patient was appropriately placed on IV insulin as per the [facility] IV insulin protocol and has done progressively better. However, due to the metabolic abnormalities noted, I would like for the patient to maintain the stability for at least 24 hours prior to considering a transition to subcutaneous insulin therapy. This will be based on her recorded insulin needs. Until then, she is to continue with IV insulin therapy as per [facility]'s protocol with hourly blood glucose monitoring. 2. Type 2 diabetes mellitus. The patient has a vague history of type 2 diabetes mellitus. According to her, this was diagnosed only 2 years ago, but she seems to have had remarkable complications including chronic kidney disease, and peripheral vascular disease culminating in a left BKA, given this outlook, I would like to check a hemoglobin A1c to get a better feel for her overall level of control. It is to be noted that her insulin needs at home were minimal only in the form of Lantus insulin 10 units daily. This will be considered when her ultimate antidiabetic regimen is determined. 3. Hypothyroidism. The patient has chronic hypothyroidism and has been a longstanding levothyroxine therapy. Her TSH was slightly uncontrolled 6 weeks ago. I will obtain a TSH and free T4 levels to gain further insight into her current state and the adequacy of the current levothyroxine dosage. I have reviewed the patient's clinical care notes, laboratory data, group home facility records past and present for over 35 minutes. I certainly appreciate this consultation by Dr. Curiel. <ELECTRONICALLY SIGNED> By: Brenda Wren MD 06/28/19 1033 [id number] Brenda Wren MD /nt
--- NOTE | 2019-06-28 14:33 | NUR ---
PT IS ALERT AND ORIENTED X4. LUNGS ARE CLEAR TO DIMINISHED. ON 5 LITERS NASAL CANULA. CALL LIGHT WITHIN REACH IF NEEDS ASSISTANCE. ON A CARB CONTROL DIET. INCONTINENT OF URINE CALLS AFER PT VOIDS FOR ASSISTANCE. BARRIER CREAM TO APPLY TO COCCYX. TAKEN OUT OF ISOLATION FOR COVID-19. TRANSFER TO ROOM 434 VIA WHEEL CHAIR. PAIN MEDS GIVEN FOR BACK PAIN. SEE MAR FOR TIME OF ADMINISTRATION. NO ISSUES OR CONERNS. TRANSFER TO ROOM WITH ALL BELONGINGS.
--- NOTE | 2019-06-28 16:37 | NUR ---
PATIENT TRANSFERRED FROM ICU, REPORT FROM BARBER/RN. PATIENT ALERT AND ORIENTED X 4. UP WITH ASSIST X 1 TO BSC, PATIENT CAN BE INCONTINENT. LEFT BKA WITH PROTHESIS. PATIENT DENIES PAIN UPON ARRIVAL TO THE UNIT. PATIENT HAS A LEFT UPPER ARM PICC LINE AND LEFT HAND 22G. BLOOD SUGAR MONITORING ORDERED. COVID-, CONGESTED COUGH STILL NOTED. WILL CONTINUE TO MONITOR.
--- NOTE | 2019-06-29 02:48 | NUR ---
ASSESSMENT COMPLETED. PT CALLS OUT WITH NEEDS. BEEN USING BED SORIANO AND SOMETIMES USING BSC. PT HAD AN INCONTINENT BM EPISODE.AFEBRILE. PT ASKED FOR SNACKS TWICE TONIGHT. C/O LOWER BACK PAIN, GIVEN NORCO FOR PAIN.SWALOWS MEDS OKAY.CONTINUES ON , AND RECEIVED PRN RT TREATMENT ONCE.WILL CONTINUE WITH POC.
[2019-06-29 04:40] VITALS: BP 145/58
[2019-06-29 04:56] LABS: HEMATOCRIT 29.1 % (37.0-47.0); HEMOGLOBIN 9.6 gm/dL (12.0-15.0); MCH 27.8 pg (26.0-34.0); MCHC 32.8 g/dL (28.0-37.0); MCV 84.8 fL (80.0-100.0); RBC 3.43 mil/uL (4.20-5.00); WBC 4.7 thou/uL (4.0-11.0)
[2019-06-29 05:17] LABS: CALCIUM 7.9 mg/dL (8.5-10.1); POTASSIUM 4.3 mmol/L (3.5-5.1)
[2019-06-29 07:17] VITALS: BP 143/66
--- NOTE | 2019-06-29 10:38 | NUR ---
ASSESSMENT: CM REVIEWED CHART AND SPOKE WITH PATIENT VIA THE PHONE IN HER ROOM. PT IS A 54 YEAR OLD ADMITTED FROM [facility]. PT HAS UTI AND CT SHOWED PATCHY PNEUMONIA AND EVIDENCE OF POSSIBLE DKA BLOOD SUGAR WAS 798. PT JUST TRANSFERED TO FROM ICU. PT WAS RECENTLY HOSPITALIZED FOR PNEUMONIA/CHF EXACERBATION. PT IS CHRONICALLY ON OXYGEN AND HAS HX OF BKA. PT HAS PROSTHESIS AND USES A WHEELCHAIR. PT REPORTS THAT SHE DOES NOT LIKE [facility] VERY WELL STATING SHE FEELS STAFF COULD BE NICER BUT IS OK WITH DISCHARGING BACK THERE AND LOOKING FOR ALTERNATE PLACEMENT. CM NOTIFIED LIASON AT [facility] THAT PT IS INTERSESTED IN ALTERNATE PLACEMENT. PT IS CURRENTLY ON IV ANBX. PLANS ARE FOR PATIENT TO RETURN TO [facility] ONCE MEDICALLY STABLE. CM FAXED CLINICAL TO [facility] TO UPDATE THEM. CM WILL CONTINUE TO FOLLOW TO ASSIST NEEDED.
[2019-06-29] MEDS ORDERED: ZYVOX600 MG PO (12:42)
[2019-06-29] MEDS ORDERED: ERTAPENEM1 GM IVPB (12:42)
[2019-06-29 15:56] VITALS: BP 150/72
--- NOTE | 2019-06-29 16:40 | NUR ---
ASSUMED CARE AT 0700. PT ALERT AND ORIENTED. ANXIOUS AT TIMES, BUT COOPERATIVE. NO COMPLAINTS OTHER THAN NOT WANTING TO GO BACK TO [facility]. NO PAIN AT THIS TIME. ON BASELINE OF 4-5L O2. RT Q4. BREATHING FINE. PT IS HAVING MULTIPL LOOSE STOOLS WHICH SHE SAYS IS FROM THE ANTIBIOTICS. PICC LINE IN PLACE WITHOUT COMPLICATIONS. REMOVED PIV, NOT NEEDED. TOLERATING DIET AND SUGARS BEING CONTROLLED WITH CURRENT REGIMEN. WILL CONTINUE TO MONITOR
[2019-06-29 19:18] VITALS: BP 134/61
--- NOTE | 2019-06-30 03:52 | NUR ---
PT REMAINS ON ISOLATION FOR CDIFF PRESUMPTIVE. SHE HAS HAD A FEW LOOSE STOOLS. LOPERAMIDE GIVEN X 1 AT BEDTIME. PT IS ON /, AND IS COMFORTABLE. REPORTS OCCASIONAL NON PRODUCTIVE COUGH. PT BEEN USING A BEDPAN MOST OF THE TIME. VOIDING OKAY. SHE IS ALERT AND SOMETIMES ANXIOUS. FALL PREC IN PLACE.
[2019-06-30 09:26] VITALS: BP 162/92
--- NOTE | 2019-06-30 14:01 | NUR ---
CARE TEAM HAD INDICATED POSSIBLE DC BACK TO [facility] THIS DAY, BUT WE ARE STILL AWAITING PULM CONSULT AND CDIFF RESULTS. SO DC LIKELY ANTICIPATED FOR TOMORROW PER PHYSICAIN. CM NOTIFIED LIAISON TERESSA. ATIF TO FOLLOW INDICATED WITH DC PLANNING.
--- NOTE | 2019-06-30 15:06 | HC ---
[facility] [place] [address] CONSULTATION Name: ROBERT BOYD Room #: 434-P ADM IN M.R.#: [id number] Admission: 06/26/19 Attend Phys: Aj Curiel MD Discharge: Date of : 63 Report #: [id number] THIS REPORT FOR: cc: Fidel Bernstein MD, Shyam MD Althoff, Jeffrey R. MD ~ CC: Aj Bernstein DATE OF SERVICE: 06/28/2019 CHIEF COMPLAINT: Lower extremity and scalp ulcerations. HISTORY OF PRESENT ILLNESS: This is a 54-year-old female patient with whom I am familiar from prior hospitalization. She has a history of COPD and diabetes mellitus who presented to the Emergency Room with not feeling well. She is noted to have a chronic ulceration to the top of her scalp that she states developed because of her anxiety a habit of picking on her scalp as well as multiple small ulcerations on her lower extremities that she seems to be mostly unaware of. MEDICATIONS: Voltaren gel, clonazepam, Demadex, Imodium, Bentyl, Pulmicort inhaler, Atrovent inhaler. ALLERGIES: AMOXICILLIN, AZITHROMYCIN, CHEESE, CHICKEN, CIPRO, DIPHENHYDRAMINE, DOXYCYCLINE, EGGS, ERYTHROMYCIN, FENTANYL, GARLIC, INSULIN, IODINATED CONTRAST, LEVAQUIN, MEPERIDINE, METOCLOPRAMIDE, MORPHINE, ONDANSETRON, OXYCODONE, PAROXETINE, PREDNISONE, PROMETHAZINE, SERTRALINE, SOAP, SULFA, TOMATOES, TRIMETHOPRIM AND UREA. SOCIAL HISTORY: Negative for alcohol use. Positive for being a former smoker. PAST MEDICAL HISTORY: Positive for healthcare-associated pneumonia this year, hypertension, chronic pain syndrome with opioid dependency, hypothyroidism, congestive heart failure, anxiety and previous left BKA. REVIEW OF SYSTEMS: Unable to be obtained due to the patient's underlying mental illness/mental status. She does note the ulcer on her scalp was related to her picking. PHYSICAL EXAMINATION: VITAL SIGNS: At this time include temperature 37.0, pulse 81, respiratory rate 16, blood pressure 140/64. GENERAL: This is a somewhat chronically ill-appearing female patient who appears to be in no obvious distress. HEENT: Head demonstrates an ulceration to Vertex of her scalp. It currently [address] [address] CONSULTATION Name: ROBERT BOYD Room #: 434-P [facility] IN .R.#: [id number] Admission: 06/26/19 Attend Phys: Aj Curiel MD Discharge: Date of : 63 Report #: [id number] measures 2.5 x 1.8 x 0.1 cm at the beginning of May of this year. It measured 2.5 x 3.2 x 0.1 cm; therefore, it is substantially smaller. It is healthy, clean and granulating with a small amount of crusting to the upper periwound area. Nose and throat are clear. NECK: Supple. LUNGS: Clear. HEART: Regular rhythm. ABDOMEN: Bowel sounds present. EXTREMITIES: Lower extremities demonstrate left BKA. She has multiple scattered small ulcerations to and abrasions to her lower extremities, mostly covered with crust or scab. She has a stage 3 pressure ulcer to her left elbow. NEUROLOGIC: The patient is alert. She does move all 4 extremities spontaneously. She is a bit confused. CLINICAL IMPRESSION: 1. Ulceration of the scalp, likely self-induced measures smaller today. Doubt need for biopsy at this time as it is much improved and healthy, clean and granulating. 2. Stage 3 pressure ulcer, left elbow. 3. Abrasion to the lower extremities. 4. Prior below-knee amputation on the left side. 5. History of sepsis, diabetic ketoacidosis, diabetes type 2 and encephalopathy and ongoing anxiety. RECOMMENDATIONS: At this point in time, I recommend triamcinolone cream and bordered foam to the scalp, will recommend bordered foam Friday, Friday, Friday to the left elbow. The lower extremity ulcers can be left open to air. She will need aggressive nutritional support, continuation of current medications. Once again, we have considered the possibility of malignancy to the scalp ulcer. It is healthy, clean, granulating and 50% smaller than it was approximately 6 weeks ago. Therefore, I do not feel that biopsy would be required or indicated at this time. I appreciate being asked to see her in consultation. <ELECTRONICALLY SIGNED> By: Peter Mei MD 06/30/19 1506 [id number] [id number] Peter Mei MD /nt
[2019-06-30 16:37] VITALS: BP 148/83
--- NOTE | 2019-06-30 16:49 | NUR ---
Assumed pt care at 7am.Pt in and out of bed with assist.Assessment completed. vss.bed bath given by linen keeper including hair shampoo.Wound picture taken and place in chart.Dr Lazaro and oil furnace installer here.order noted.Stool collected for c-diff negative per lab result today.Isolation dc'd.Pt was happy.Pt has good appetite and tolerated meds.Pt in bed at present with fall bundle in place.Will continue to monitor.
[2019-06-30 19:28] VITALS: BP 123/70
--- NOTE | 2019-07-01 03:26 | NUR ---
PT CARE ASSUMED AT 1900 WITH PT SITTING AT HER BEDSIDE .PT IS A/O X4.PT IS LT BKA AND HAS PROTHESES.PT IS ACCUCHECK AC .PT IS ON 4L OF O2 NC.PT HAS SINGLE LUMEN PICC ON RANDALL SL.PT HAS DIARRHEA AND WAS GIVEN LOPERAMIDE .PT IS UP TO BSC WITH SBA.WILL CONTINUE TO MONITOR
[2019-07-01 04:28] VITALS: BP 149/80
[2019-07-01 07:00] VITALS: BP 162/76
--- NOTE | 2019-07-01 13:32 | NUR ---
PT IS CDIFF NEGATIVE. CARE TEAM INDICATED PROBABLE DC BACK TO [facility] TOMORROW. CM NOTIFIED LIASION LATIA AT [facility]. CLINICAL UPDATES SENT. CM SPOKE WITH PT AND SHE IS AWARE AND AGREEABLE.
--- NOTE | 2019-07-01 13:43 | NUR ---
PT RESTING IN BED WATCHING TV AND TALKING ON THE PHONE. DOES NOT WANT THIS NURSE TO CALL FAMILY STATES HER SON KNOWS SHE IS HERE. PT TO MAYBE TRANSFER TO [facility] FRIDAY.
--- NOTE | 2019-07-01 14:27 | NUR ---
FAXED CLINICAL UPDATE TO [facility] RECEIVED CONFIRMATION AND LEFT MSG WITH CHRISTOPH IN ADM.
[2019-07-01 16:03] VITALS: BP 156/90
[2019-07-01 20:22] VITALS: BP 128/70
--- NOTE | 2019-07-02 02:47 | NUR ---
pt care assumed with pt sitting at the side of the bed .pt is alert and oriented x4.pt appeared to be in no distress.pt had as blood sugar of 90 and wanted medications to prevent it from dropping.HANNAH Mckinley informed and she called and spoke with pt.pt had 3 loose stole and was given loperamide and wanted dicyclomine for abdominal cramps.HANNAH Mckinley paged and ordered for dicyclomine given.pt is accucheck achs.Pt has PICC line on RANDALL and also on 4L of O2 nasal canula.will continue to monitor per protocol
[2019-07-02 04:30] VITALS: BP 139/75
[2019-07-02 07:27] VITALS: BP 133/67
[2019-07-02] MEDS ORDERED: ERTAPENEM1 GM IVPB (14:07)
[2019-07-02] MEDS ORDERED: LANTUS100 UNIT/M SUBQ (14:07)
[2019-07-02] MEDS ORDERED: TRIAMCINOLONE A15 G3 TOP (14:07)
[2019-07-02] MEDS ORDERED: HUMULIN R100 UNIT/1 SUBQ (14:07)
[2019-07-02] MEDS ORDERED: SIMETHICON CHEW80 M1 PO (14:07)
[2019-07-02] MEDS ORDERED: DEMADEX20 MG PO (14:07)
--- NOTE | 2019-07-02 15:30 | NUR ---
CARE TEAM INDICATED THAT PT IS MEDICALLY STABLE TO DC BACK TO [facility] THIS DAY. ORDERS FAXED. SÁNCHEZ DE LEON ARRANGED FOR [id number]. CHART COPY ORDERED. REPORT TO BE CALLED TO . PT'S FRIEND PAT NOTIFIED SON COULDN'T BE REACHED. NO OTHER CM INTERVENTION INDICATED. CASE CLOSED.
--- NOTE | 2019-07-02 16:47 | NUR ---
PT DISCHARGED AT THIS TIME. W/C VAN HERE TO PICK-UP WAS SUPPOSED TO BE P/U BETWEEN 17:00 AND 17:30 PICC TO LEFT UPPER ARM INTACT, PT TO CONT ON IV ABT. ALL BELONGINGS PACKED AND SENT WITH PATIENT. SENT PATIOENT WITH BOX MEAL.T W/O PAIN OR RESP DISTRESS AT DC. CALLED [facility] TO GIVE REPORT NO ANSWER [phone]. XS2.
--- NOTE | 2019-07-02 17:29 | NUR ---
SPOKE WITH [facility] GAVE REPORT TO NURSE WHO IS ASSUMMING CARE OF PATIENT. ALSO FAXED PAPERWORK TO FACILITY. ESTATE PLANNING ATTORNEY DID NOT TAKE.
== END 2019-07-02 17:40 | DRG 592 ==
LOC: ER 15:54 → EROBS 18:37 → ICU 18:37 → 4S 06-28 14:40
PROVIDERS: Internal Medicine; Physician Assistant; Specialist; ADMIT Hospitalist
PROC: 05HY33Z Insertion of Infusion Device into Upper Vein, Percutaneous Approach (ICD-10-PCS; principal; 2019-06-25)
PROC: 05HC33Z Insertion of Infusion Device into Left Basilic Vein, Percutaneous Approach (ICD-10-PCS; 2019-06-27)
DX: L89.023 Pressure ulcer of left elbow, stage 3 (principal); A41.9 Sepsis, unspecified organism; E11.10 Type 2 diabetes mellitus with ketoacidosis without coma; J18.9 Pneumonia, unspecified organism; E43 Unspecified severe protein-calorie malnutrition; J96.21 Acute and chronic respiratory failure with hypoxia; N17.0 Acute kidney failure with tubular necrosis; R65.20 Severe sepsis without septic shock; N39.0 Urinary tract infection, site not specified; G93.40 Encephalopathy, unspecified; N13.30 Unspecified hydronephrosis; N13.4 Hydroureter; F11.20 Opioid dependence, uncomplicated; J44.0 Chronic obstructive pulmonary disease with (acute) lower respiratory infection; G89.4 Chronic pain syndrome; E03.9 Hypothyroidism, unspecified; I50.9 Heart failure, unspecified; F41.9 Anxiety disorder, unspecified; E11.51 Type 2 diabetes mellitus with diabetic peripheral angiopathy without gangrene; L98.499 Non-pressure chronic ulcer of skin of other sites with unspecified severity; S80.812A Abrasion, left lower leg, initial encounter; B96.1 Klebsiella pneumoniae [K. pneumoniae] as the cause of diseases classified elsewhere; R41.0 Disorientation, unspecified; X58.XXXA Exposure to other specified factors, initial encounter; Z20.828 Contact with and (suspected) exposure to other viral communicable diseases; Z89.512 Acquired absence of left leg below knee; Z88.2 Allergy status to sulfonamides; I11.0 Hypertensive heart disease with heart failure; Z88.8 Allergy status to other drugs, medicaments and biological substances; Z88.6 Allergy status to analgesic agent; Z88.1 Allergy status to other antibiotic agents; Z91.041 Radiographic dye allergy status; Z87.891 Personal history of nicotine dependence; Z79.4 Long term (current) use of insulin; Z68.21 Body mass index [BMI] 21.0-21.9, adult; Y93.89 Activity, other specified; Y92.89 Other specified places as the place of occurrence of the external cause; Y99.8 Other external cause status; Z79.899 Other long term (current) drug therapy; Z91.012 Allergy to eggs; Z91.02 Food additives allergy status; Z79.82 Long term (current) use of aspirin
CPT/HCPCS: 10078; 10102

== ENCOUNTER 2019-07-24 09:49 | Inpatient (IN) | payer OTHER ==
[~2019-07-24] VITALS: Ht 165.1 cm; Wt 71.5 kg
--- NOTE | ~2019-07-24 | HC ---
[facility] [place] [address] CONSULTATION Name: ROBERT BOYD Room #: 459-P ADM IN M.R.#: [id number] Admission: 07/24/19 Attend Phys: Xochitl Disla MD Discharge: Date of : 63 Report #: [id number] THIS REPORT FOR: cc: Fidel Bernstein MD, Shyam MD Al-Absi,Kel Pires MD ~ CC: Xochitl Bernstein DATE OF SERVICE: 07/26/2019 REASON FOR CONSULTATION: Metabolic acidosis. REASON FOR PRESENTATION: Shortness of breath. HISTORY OF PRESENT ILLNESS: A 54-year-old with past medical history of chronic kidney disease, baseline creatinine of around 1.2. She is also known to have diabetes mellitus. The patient presented to the Emergency Room on the with mental status changes, shortness of breath and hypoglycemia. I have evaluated this patient a few months ago for acute kidney injury and things resolved. She is usually followed at [facility]. She has extreme noncompliance with fluid and salt restriction and we worked very hard on her volume control. She has history of noncompliance with her medical care, sugar control. At one point, she was admitted with DKA and her blood sugar was in the 800 range. At that time, she was found to have what was considered to be a cryptogenic organizing pneumonia. She was also found to have bilateral hydronephrosis. The patient presented yesterday reporting from her alf that she has been having some acute mental status changes with hypoglycemia. Her creatinine is stable at 1.3. She did have diarrhea and was found to have non-gap acidosis. She was admitted for further evaluation by the hospitalist team. She was found to have cellulitis of the lower extremities on top of the above. She was initiated on appropriate antibiotic. Wound care has been consulted. She was also found to be anemic and GI team was consulted. PAST MEDICAL HISTORY: Extensive and includes the followin. Noncompliance with medical care. 2. Diabetes mellitus, out of control. 3. Hypertension. 4. Chronic opiate dependence. 5. Left lower extremity amputation. 6. Hypothyroidism. 7. Anemia. 8. Recent pneumonia a couple of months ago. 9. Anxiety. USP MEDICATIONS: [address] [address] CONSULTATION Name: ROBERT BOYD Room #: 459-P [facility] IN M.R.#: [id number] Admission: 07/24/19 Attend Phys: Xochitl Disla MD Discharge: Date of : 63 Report #: [id number] 1. Loratadine. 2. Aspirin. 3. Clonazepam. 4. Torsemide 40 b.i.d. 5. Insulin. 6. Levothyroxine. ALLERGIES: SULFA and CONTRAST. FAMILY HISTORY: Hypertension. SOCIAL HISTORY: Resides in a nursing facility. REVIEW OF SYSTEMS: GENERAL: No fever or chills. CARDIOVASCULAR: Shortness of breath. PULMONARY: Shortness of breath. No cough or hemoptysis. GASTROINTESTINAL: Diarrhea. GENITOURINARY: No frequency, no urgency. MUSCULOSKELETAL: As per the history of present illness. SKIN: Erythema of the right lower extremity: PHYSICAL EXAMINATION: VITAL SIGNS: Blood pressure is 163/73, temperature is 36.5, pulse rate is 81. HEAD AND NECK: No jugular venous distention. CHEST: Crackles bilaterally. CARDIOVASCULAR: No rub. ABDOMEN: Soft, nontender. EXTREMITIES: Lower extremities, left lower extremity amputation. Cellulitic changes on the right side. LABORATORY VALUES: Reviewed. Hemoglobin is 7.8. Sodium is 143, potassium is 4.4, chloride is 116, carbon dioxide is 17, BUN is 32, creatinine is 1.3. IMPRESSION AND PLAN: 1. Chronic kidney disease, at her baseline creatinine is 1.3. 2. Metabolic acidosis, non-gapped due to gastrointestinal losses. 3. Diabetes mellitus, poorly controlled. 4. Peripheral vascular disease post left below-knee amputation. 5. Recent cryptogenic pneumonitis. 6. Bilateral hydronephrosis. 7. Noncompliance with medical care, fluid restriction. Most recent hemoglobin A1c of 9.7. 8. Anemia. 9. Her non-gapped acidosis is related to gastrointestinal losses. 10. She received appropriate amount of intravenous bicarbonate yesterday. [address] [address] CONSULTATION Name: ROBERT BOYD Room #: 459-P [facility] IN M.R.#: [id number] Admission: 07/24/19 Attend Phys: Xochitl Disla MD Discharge: Date of : 63 Report #: [id number] Switched to oral bicarbonate today. Renal function is stable. Anemia workup is in progress. Her chest x-ray findings are consistent with chronic changes; however, I will add her home torsemide dose given her edema and the noncompliance with the salt and fluid restriction. 11. No further renal recommendations. By: [id number] Kel Li MD /tyrel
[~2019-07-24 09:49] MED LIST changes: +ERTAPENEM1 GM IVPB; +HUMULIN R100 UNIT/1 SUBQ; +LANTUS100 UNIT/M SUBQ; +SIMETHICON CHEW80 M1 PO; +TRIAMCINOLONE A15 G3 TOP; +ZYVOX600 MG PO
[2019-07-24 09:50] VITALS: BP 113/56
[2019-07-24 10:21] LABS: ABSOLUTE NEUTROPHILS 6.5 thou/uL (1.4-8.2); BASOPHILS 0.8 % (0.0-2.0); EOSINOPHILS 0.5 % (0.0-3.0); HEMATOCRIT 30.5 % (37.0-47.0); HEMOGLOBIN 9.6 gm/dL (12.0-15.0); LYMPHOCYTES 8.7 % (24.0-44.0); MCH 27.9 pg (26.0-34.0); MCHC 31.5 g/dL (28.0-37.0); MCV 88.7 fL (80.0-100.0); MONOCYTES 6.7 % (1.0-8.0); PLATELET COUNT 308 thou/uL (150-400); POLYS 83.3 % (36.0-66.0); RBC 3.44 mil/uL (4.20-5.00); RDW 17.9 % (10.5-14.5); WBC 7.8 thou/uL (4.0-11.0)
[2019-07-24 10:28] LABS: ANION GAP 10 mmol/L (7-16); BUN 38 mg/dL (7-18); CHLORIDE 115 mmol/L (98-107); CO2 16 mmol/L (21-32); CREATININE 1.3 mg/dL (0.6-1.0); GLUCOSE 116 mg/dL (74-106); POTASSIUM 4.9 mmol/L (3.5-5.1); SODIUM 141 mmol/L (136-145)
[2019-07-24 10:35] LABS: ALBUMIN 1.6 g/dL (3.4-5.0); DIRECT BILIRUBIN < 0.1 mg/dL (<0.1-0.2); SGOT 15 U/L (15-37); SGPT 19 U/L (30-65); TOTAL BILIRUBIN 0.2 mg/dL (<0.1-1.0); TOTAL PROTEIN 6.3 g/dL (6.4-8.2)
[2019-07-24 11:43] LABS: URINE BILIRUBIN NEGATIVE (Negative); URINE BLOOD 1+ (Negative); URINE CLARITY SL CLOUDY; URINE COLOR YELLOW; URINE GLUCOSE-RANDOM* NEGATIVE (Negative); URINE KETONES NEGATIVE (Negative); URINE NITRITE-REFLEX NEGATIVE (Negative); URINE PROTEIN (DIPSTICK) 3+ (Negative); URINE SPECIFIC GRAVITY 1.025 (1.005-1.035); URINE UROBILINOGEN 0.2 E.U./dl (0.2-1.0)
[2019-07-24 11:45] LABS: URINE LEUKOCYTES-REFLEX 1+ (Negative)
[2019-07-24 11:49] LABS: BACTERIA-REFLEX >30 Many /HPF (None Seen); URINE WBC-REFLEX >25 Many /HPF (0-5)
[2019-07-24 11:50] LABS: AMORPHOUS URATES Few /LPF (None Seen); COARSE GRANULAR CASTS 0-3 Few /LPF (None Seen)
[2019-07-24 11:51] LABS: SQUAMOUS 0-3 Few /LPF (0-3)
[2019-07-24 11:52] LABS: URINE RBC 0-2 Rare /HPF (0-2)
--- NOTE | 2019-07-24 13:35 | NUR ---
SPOKE WITH SON AT PT REQUEST. PT NEEDS HIM TO BRING HER SOME THINGS. PT TALKING ABOUT COMING IN BY [facility], PT REQUST MORE COFFEE BUT CONTINUES TO SPILL.
[2019-07-24 19:24] VITALS: BP 124/59
[2019-07-24 20:10] VITALS: BP 128/65
[2019-07-24 20:50] VITALS: BP 139/67
--- NOTE | 2019-07-25 00:09 | NUR ---
NOTED PTS COVID SWAB RESULT WAS POSTED IN [employer] ON 07/23 AT 1926 "NEGATIVE." RESULT WAS PRIOR TO ADMISSION AND DEPARTURE FROM ER TO THIS FLOOR.
[2019-07-25 00:15] VITALS: BP 122/56
[2019-07-25] MEDS ORDERED: KLONOPIN0.5 MG PO (00:51)
[2019-07-25] MEDS ORDERED: FEOSOL325 M1 PO (00:58)
[2019-07-25] MEDS ORDERED: LORATIDINE 10 M10 M1 PO (00:59)
[2019-07-25] MEDS ORDERED: LIDODERM1 EACH TP (01:00)
--- NOTE | 2019-07-25 03:07 | NUR ---
CALL FROM "MORENA", FROM [facility] STATING THAT THEY DO NOT HANDLE THE TYPE OF COMPLAINTS THAT THIS PATIENT IS ALLEGING.
[2019-07-25 05:00] VITALS: BP 123/62
--- NOTE | 2019-07-25 05:44 | NUR ---
PT MAKING SLOW PROGRESS TOWARDS GOALS. PREVIOUSLY NOTED, FIRST COVID-19 SWAB RESULTED NEGATIVE. VSS THROUGHOUT THE NIGHT EXCEPT FOR 99.5 ORAL TEMP THIS MORNING. ALSO PREVIOUSLY STATED [facility] DOES NOT PROVIDE ASSISTANCE TOWARDS PTS ALLEGATIONS REGARDING [facility]. NO NOTED COUGH OVER NIGHT. INCONTINENT X3.
[2019-07-25 06:02] LABS: ABSOLUTE NEUTROPHILS 2.6 thou/uL (1.4-8.2); BASOPHILS 1.4 % (0.0-2.0); EOSINOPHILS 1.4 % (0.0-3.0); HEMATOCRIT 25.9 % (37.0-47.0); HEMOGLOBIN 8.2 gm/dL (12.0-15.0); LYMPHOCYTES 27.4 % (24.0-44.0); MCHC 31.7 g/dL (28.0-37.0); MCV 88.5 fL (80.0-100.0); MONOCYTES 10.4 % (1.0-8.0); PLATELET COUNT 299 thou/uL (150-400); POLYS 59.4 % (36.0-66.0); RBC 2.93 mil/uL (4.20-5.00); RDW 18.5 % (10.5-14.5); WBC 4.4 thou/uL (4.0-11.0)
[2019-07-25 06:23] LABS: ALBUMIN 1.2 g/dL (3.4-5.0); CALCIUM 7.2 mg/dL (8.5-10.1); CREATININE 1.4 mg/dL (0.6-1.0); MAGNESIUM 1.9 mg/dL (1.8-2.4); PHOSPHORUS 4.6 mg/dL (2.5-4.9); POTASSIUM 4.8 mmol/L (3.5-5.1); TOTAL BILIRUBIN 0.2 mg/dL (<0.1-1.0); TOTAL PROTEIN 5.2 g/dL (6.4-8.2)
[2019-07-25 08:39] VITALS: BP 138/62
[2019-07-25 09:35] LABS: BE(vivo) -14.7 mmol/L (-2 to +3); PCO2 31.4 mmHg (35.0-45.0); PO2 81.8 mmHg (80.0-100.0); pH 7.201 (7.360-7.450); sO2 93.8 % (92.0-98.0)
[2019-07-25 09:37] LABS: HEMATOCRIT 28.6 % (37.0-47.0); HEMOGLOBIN 9.1 gm/dL (12.0-15.0)
--- NOTE | 2019-07-25 11:16 | HC ---
[facility] [place] [address] CONSULTATION Name: ROBERT BOYD Room #: 362-P ADM IN M.R.#: [id number] Admission: 07/24/19 Attend Phys: Xochitl Disla MD Discharge: Date of : 63 Report #: [id number] THIS REPORT FOR: cc: Fidel Bernstein MD, Shyam MD Barry, Joseph W. MD ~ CC: Xochitl Bernstein DATE OF SERVICE: 07/25/2019 INFECTIOUS DISEASE CONSULTATION ATTENDING PHYSICIAN: Dr. Disla. REASON FOR EVALUATION: Complicated urinary tract infection, lower extremity inflammatory eruption. HISTORY OF PRESENT ILLNESS: Chart reviewed, patient examined. This is a 54-year-old with diabetes mellitus type 2, insulin requiring, quite tenuous, was actually hospitalized in latter part of June with complaints of pneumonitis and sepsis as well as UTI, was confirmed to have an ESBL Klebsiella associated with her urinary tract infection. She was admitted through the Emergency Room with reports of hypoglycemia with altered mental status. She was found to be hypoxemic on room air. It was notable she wears supplemental oxygen at baseline. She has got a wound in right lower extremity as well. She describes ongoing issues with fatigue. She has had some nausea, more recently diarrhea. Initial white count was in the normal range as was the lactic acid. Chest x-ray showed some changes, felt to be more chronic. Coronavirus testing was negative. Due to concern about her tenuous status, she was empirically started on therapy with metronidazole, Zosyn and vancomycin. She is still mildly encephalopathic, does admit to some moderate degree of discomfort at this point. She has been afebrile. ALLERGIES: LISTED TO IODINE, SULFA WHICH CAUSES URTICARIA, MORPHINE, PREDNISONE, DOXYCYCLINE AGAIN CAUSES URTICARIA, ERYTHROMYCIN CAUSES URTICARIA, CIPRO CAUSES URTICARIA, AZITHROMYCIN, AMOXICILLIN CAUSES URTICARIA, LEVOTHYROXINE CAUSES URTICARIA. CURRENT MEDICATIONS: Albuterol, metronidazole, Zosyn interesting has not noticed eruption and vancomycin. PAST MEDICAL HISTORY: As described above, diabetes mellitus type 2, insulin requiring; history of congestive heart failure with cardiomyopathy; chronic pain syndrome especially with the lumbar spine; opiate dependence; hypothyroidism; hypertension; left above-knee amputation; anxiety; depression. [address] [address] CONSULTATION Name: ROBERT BOYD Room #: [address] [place] [address] IN M.R.#: [id number] Admission: 07/24/19 Attend Phys: Xochitl Disla MD Discharge: Date of : 63 Report #: [id number] SOCIAL HISTORY: Former smoker. No ethanol. No illicit drug use. FAMILY HISTORY: Noncontributory. REVIEW OF SYSTEMS: As above, otherwise unremarkable. PHYSICAL EXAMINATION: GENERAL: She appears chronically ill, undernourished. She is mildly encephalopathic. She is in cmlk-mu-jiipjlto distress. VITAL SIGNS: Temperature 98.8, pulse 85, respirations 20, blood pressure 138/62. SKIN: Warm, dry, no rashes. HEENT: Normocephalic. Extraocular muscles intact. NECK: Supple. Nasal cannula oxygen in place. LUNGS: Diminished overall, few scattered basilar coarse sounds. She has got some wheezes. HEART: Distant, regular, has a soft systolic murmur. ABDOMEN: Distended, slightly firm, although not overtly tender. GENITOURINARY AND RECTAL: Deferred. LABORATORY DATA: Electrolytes: Sodium 142, potassium 4.8, chloride 117, bicarbonate is 14, anion gap of 11, BUN and creatinine 37 and 1.4, glucose of 123, albumin of 1.2, PT of 10.0, INR of 1.0. CBC: White count 4.4, H and H of 8.2 and 25.9 and platelets of 299. Urinalysis greater than 25 white cells, greater than 30 bacteria. Chest x-ray showed some chronic interstitial opacities suggesting interstitial scarring and fibrosis. Lactic acid of 0.5. Coronavirus was negative. ASSESSMENT AND PLAN: Complicated urinary tract infection. The patient has no history previous in terms of recent, has known multiple resistant organism. We will adjust therapy at this point. Utilize meropenem. See how she does. Noted GI is evaluating diarrhea. We will await results. Certainly monitor expectantly. Add incentive spirometry, increase her activity as allowed. <ELECTRONICALLY SIGNED> By: Ron Leger MD 07/25/19 1116 [id number] Ron Leger MD /nt
[2019-07-25 11:27] VITALS: BP 132/70
[2019-07-25 12:49] LABS: URINE BILIRUBIN NEGATIVE (Negative); URINE BLOOD 2+ (Negative); URINE CLARITY CLOUDY; URINE COLOR YELLOW; URINE GLUCOSE-RANDOM* NEGATIVE (Negative); URINE KETONES NEGATIVE (Negative); URINE LEUKOCYTES 2+ (Negative); URINE NITRITE POSITIVE (Negative); URINE PROTEIN (DIPSTICK) 3+ (Negative); URINE SPECIFIC GRAVITY 1.025 (1.005-1.035); URINE UROBILINOGEN 0.2 E.U./dl (0.2-1.0)
[2019-07-25 12:57] LABS: BACTERIA 1-9 Few /HPF (None Seen); CASTS None Seen /LPF (None Seen); CRYSTALS None Seen /LPF (None Seen); SQUAMOUS 0-3 Few /LPF (0-3); URINE RBC 3-10 Few /HPF (0-2); URINE WBC >25 Many /HPF (0-5); YEAST Present (None Seen)
[2019-07-25 16:53] VITALS: BP 145/69
--- NOTE | 2019-07-25 19:30 | NUR ---
ASSUMED PATIENT CARE AT 0700. A/O X4. TOLERATED ON 4L/NC. DRY COUGH. VSS. AFEBRILE. SLOWLY TOWARDS POC GOALS.
[2019-07-25 20:10] VITALS: BP 146/64
--- NOTE | 2019-07-25 20:23 | HC ---
[facility] [place] [address] CONSULTATION Name: ROBERT BOYD Room #: 362-P ADM IN M.R.#: [id number] Admission: 07/24/19 Attend Phys: Xochitl Disla MD Discharge: Date of : 63 Report #: [id number] THIS REPORT FOR: cc: Fidel Bernstein MD, Shyam MD Thesing, John A. MD ~ CC: Xochitl Bernstein INPATIENT CONSULTATION REPORT REASON FOR CONSULTATION: The patient is a 54-year-old woman with anemia. HISTORY OF PRESENT ILLNESS: This 54-year-old woman has a history of multiple medical problems including diabetes as well as cellulitis and chronic kidney disease and chronic diarrhea. She had a number of admissions to [facility] and was admitted on this occasion from a nursing facility due to hypoglycemia. She has also been found to be anemic and she reports diarrhea. Review of lab studies in the system revealed that at this time her hemoglobin was 8.2. However, going through the system back to April of this year, she was noted to be 7.1 earlier this year. Her hemoglobin has fluctuated up and down, but it has not been normal at least at this institution. I do not believe she has had any blood transfusions. As far as anemia, she reports she has been told for more than a year she is anemic. She reports she had an upper endoscopy done in [place] more than a year ago. She was told she had reflux disease and gastritis. She was treated with ranitidine. She reports she has never had a colonoscopy. She has some nausea. She has occasional vomiting. She denies hematemesis. She denies dysphagia. She denies use of nonsteroidals. She reports that she does have loose stools. After most meals, she will have a bowel movement. She may have up to 8 loose to watery stools per day. She has not had any rectal bleeding. There is no family history of colon cancer. As noted above, she has had complaints of diarrhea. Again, she has not had any rectal bleeding. PAST MEDICAL HISTORY: Notable for diabetes. She has also had congestive heart failure, chronic kidney disease, healthcare-associated pneumonia, sepsis, urinary tract infection, COPD. PAST SURGICAL HISTORY: Tubal ligation. She has also had a left idxbs-shu-phxk amputation due to a wound on her foot. ALLERGIES: Extensive and includes CHEESE, IODINATED CONTRAST, SULFA, MORPHINE, UREA, PREDNISONE, GARLIC, DOXYCYCLINE, ERYTHROMYCIN, SULFAMETHOXAZOLE, [address] [address] CONSULTATION Name: ROBERT BOYD Room #: 362-P [facility] IN .R.#: [id number] Admission: 07/24/19 Attend Phys: Xochitl Disla MD Discharge: Date of : 63 Report #: [id number] TRIMETHOPRIM, CIPRO, FENTANYL, AZITHROMYCIN, AMOXICILLIN, PAROXETINE, PROMETHAZINE, SERTRALINE, MEPERIDINE, METOCLOPRAMIDE, DIPHENHYDRAMINE, ONDANSETRON, INSULIN, LEVOFLOXACIN, EGG, TOMATO and CHICKEN. MEDICATIONS: She cannot tell me her usual home medicines. A list in the computer includes acetaminophen, AccuNeb, aspirin, Pulmicort, buspirone, Klonopin, diclofenac gel, dicyclomine, ferrous sulfate, guanfacine, hydrocodone with acetaminophen, Lantus insulin, Regular insulin, Atrovent, levothyroxine, lidocaine, loperamide, loratadine, magnesium and aluminum, antacid for GI upset, pantoprazole, a probiotic, simethicone, Demadex. FAMILY HISTORY: No family history of colon cancer. SOCIAL HISTORY: She is a former cigarette smoker. She does not smoke. REVIEW OF SYSTEMS: GENERAL: No change in weight, fever or chills. VENTILATION MECHANIC: No weakness, numbness, loss of consciousness. ENT: Poor vision. PULMONARY: Pneumonias in the past, chronic obstructive pulmonary disease. CARDIOVASCULAR: No chest pain or chest tightness. GASTROINTESTINAL: Some nausea, occasional vomiting, no hematemesis, chronic diarrhea. GENITOURINARY: Urinary tract infection in the past. MUSCULOSKELETAL: Chronic pain in particular back with use of hydrocodone. SKIN: Cellulitis in her right lower extremity. PSYCHIATRIC: Anxiety. ENDOCRINE: Diabetes and thyroid disease. HEMATOLOGIC: No bleeding, bruising or malignancies. PHYSICAL EXAMINATION: GENERAL: The patient is a well-developed, somewhat overweight woman, in no acute distress. VITAL SIGNS: Blood pressure 138/62, pulse 85. HEENT: Anicteric. Pupils equal and round. Oropharynx clear. NECK: Supple. CHEST: Clear. HEART: Regular rate and rhythm. S1 and S2. ABDOMEN: Normal bowel sounds, soft, nontender, without hepatosplenomegaly or masses. RECTAL: Not done. EXTREMITIES: Without edema. It is noted she has a left gpmtc-mel-zsnc amputation with cellulitis on her right leg, was not examined. LABORATORY DATA: Hemoglobin as noted. INR 1. Sodium 142, potassium 4.8, chloride 117, CO2 of 14, BUN of 37, creatinine of 1.4. LFTs are normal with the [address] [address] CONSULTATION Name: ROBERT BOYD Room #: 362-P ADM IN ..#: [id number] Admission: 07/24/19 Attend Phys: Xochitl Disla MD Discharge: Date of : 63 Report #: [id number] exception of a borderline elevated alkaline phosphatase of 124. Also, in April this year, iron studies were done with a low iron of 13, very low TIBC of 160, percent saturation 8%. ASSESSMENT: 1. Anemia, likely chronic illness. 2. Chronic diarrhea in a diabetic patient. 3. Diabetes. 4. Cellulitis. 5. Chronic obstructive pulmonary disease. 6. Chronic kidney disease. COMMENT: She does not give any indication of recent gastrointestinal bleeding. PLAN: 1. Agree with stool for Hemoccult. 2. Celiac screen due to her chronic diarrhea. 3. Stool for fecal leukocytes and enteric pathogens. 4. The patient has never had a colonoscopy and at a minimum should have a screening colonoscopy. However, may need to consider colonoscopy with regards to her chronic diarrhea. <ELECTRONICALLY SIGNED> By: Jose Francisco Chapin MD 07/25/192022 1 7 Jose Francisco Chapin MD /nt
[2019-07-26 01:59] LABS: HEMOGLOBIN 7.8 gm/dL (12.0-15.0); MCH 28.4 pg (26.0-34.0); MCHC 32.5 g/dL (28.0-37.0); MCV 87.4 fL (80.0-100.0); PLATELET COUNT 289 thou/uL (150-400); RBC 2.75 mil/uL (4.20-5.00); RDW 18.3 % (10.5-14.5); WBC 3.6 thou/uL (4.0-11.0)
[2019-07-26 02:21] LABS: ALBUMIN 1.1 g/dL (3.4-5.0); CALCIUM 7.2 mg/dL (8.5-10.1); CREATININE 1.3 mg/dL (0.6-1.0); MAGNESIUM 1.8 mg/dL (1.8-2.4); PHOSPHORUS 4.1 mg/dL (2.5-4.9); POTASSIUM 4.4 mmol/L (3.5-5.1); TOTAL BILIRUBIN 0.2 mg/dL (<0.1-1.0); TOTAL PROTEIN 4.8 g/dL (6.4-8.2)
[2019-07-26 02:30] LABS: ABSOLUTE NEUTROPHILS 1.9 thou/uL (1.4-8.2); ANISOCYTOSIS 2+; METAMYELOCYTES 1 %
[2019-07-26 05:00] VITALS: BP 139/60
[2019-07-26 07:50] VITALS: BP 163/73
[2019-07-26 09:38] LABS: HEMATOCRIT 26.6 % (37.0-47.0); HEMOGLOBIN 8.7 gm/dL (12.0-15.0)
[2019-07-26 11:46] VITALS: BP 165/70
--- NOTE | 2019-07-26 13:40 | HC ---
[facility] [place] [address] CONSULTATION Name: ROBERT BOYD Room #: 362-P [facility] IN M.R.#: [id number] Admission: 07/24/19 Attend Phys: Xochitl Disla MD Discharge: Date of : 63 Report #: [id number] THIS REPORT FOR: cc: Fidel Bernstein MD, Shyam MD Jetmore, Allen B. MD ~ CC: Xochitl Bernstein DATE OF SERVICE: 07/25/2019 WOUND CARE CONSULTATION NOTE REASON FOR CONSULTATION: Cellulitis with draining ulcers of right leg. HISTORY OF PRESENT ILLNESS: The patient is a 54-year-old woman recently hospitalized at [facility] in June, she has had trouble with ulcers and cellulitis of her right leg. She is readmitted now with diarrhea since she left the hospital and hypoglycemia, the patient is diabetic. Leg has increased pain, redness and drainage with leakage from the wound and nonhealing blisters of the right leg with drainage. PAST MEDICAL HISTORY: Diabetes mellitus, congestive heart failure, chronic kidney disease, recent diarrhea, protein-calorie malnutrition, urinary tract infection, hypertension, hypothyroidism. ALLERGIES: See chart. LABORATORY AND DIAGNOSTIC DATA: Albumin 1.6. MEDICATIONS: Include Voltaren, clonazepam, Imodium, Pulmicort, Atrovent, Lantus insulin, Humulin insulin, Demadex, ertapenem. PAST SURGICAL HISTORY: Left below-knee amputation. PHYSICAL EXAMINATION: GENERAL: Shows chronically ill-appearing, middle-aged woman, alert, and conversant. HEENT: Mucous membranes moist. LUNGS: Respirations unlabored. ABDOMEN: Soft. EXTREMITIES: Exam showed well-healed left below-knee amputation. Examination of right leg shows mild edema. There is mild redness of the right leg with 2 open draining superficial ulcers, each measuring approximately 2 cm x 1.5 cm in the right lower lateral leg. Cellulitis is subtle. Wounds have some adherent exudate. Dorsalis pedis pulses are weakly present. [address] [address] CONSULTATION Name: ROBERT BOYD Room #: 362-P [facility] IN M.R.#: [id number] Admission: 07/24/19 Attend Phys: Xochitl Disla MD Discharge: Date of : 63 Report #: [id number] IMPRESSION: 1. Diabetes mellitus with right leg ulcers. 2. Peripheral vascular disease with ulceration, right leg. 3. Venous stasis with ulceration and inflammation, right leg. 4. Cellulitis, right leg. 5. Severe protein-calorie malnutrition. PLAN: IV antibiotics, meropenem. Wound culture on wounds of right leg. Mepilex bandages to the leg wounds. Order lower extremity arterial Doppler of the right leg. Wound care team will follow. <ELECTRONICALLY SIGNED> By: Sunil Dhillon MD 07/26/19 1340 1359 21 Sunil Dhillon MD /tyrel
[2019-07-26 15:12] VITALS: BP 150/68
[2019-07-26 20:01] VITALS: BP 142/83
[2019-07-27 05:54] LABS: HEMATOCRIT 26.1 % (37.0-47.0); HEMOGLOBIN 8.5 gm/dL (12.0-15.0); MCH 28.1 pg (26.0-34.0); MCHC 32.7 g/dL (28.0-37.0); MCV 86.1 fL (80.0-100.0); PLATELET COUNT 288 thou/uL (150-400); RBC 3.03 mil/uL (4.20-5.00); RDW 17.7 % (10.5-14.5); WBC 3.5 thou/uL (4.0-11.0)
[2019-07-27 06:09] VITALS: BP 162/82
[2019-07-27 06:15] LABS: CALCIUM 7.2 mg/dL (8.5-10.1); CREATININE 1.3 mg/dL (0.6-1.0); MAGNESIUM 1.5 mg/dL (1.8-2.4); POTASSIUM 3.4 mmol/L (3.5-5.1)
--- NOTE | 2019-07-27 06:26 | NUR ---
patient was a transfer from . patient incontinent this shift pericare and barrier cream applied as needed. patient on 4l of oxygen no soa or distress noted this shift. patient had 3 bowel movent this shift. pain controlled this shift. patient in bed asleep at this time breathing regular and unlaboured.
[2019-07-27 07:21] VITALS: BP 165/73
[2019-07-27 09:01] LABS: ABSOLUTE NEUTROPHILS 2.1 thou/uL (1.4-8.2); ANISOCYTOSIS 1+
--- NOTE | 2019-07-27 10:11 | HC ---
[facility] [place] [address] CONSULTATION Name: ROBERT BOYD Room #: 459-P ADM IN M.R.#: [id number] Admission: 07/24/19 Attend Phys: Xochitl Disla MD Discharge: Date of : 63 Report #: [id number] THIS REPORT FOR: cc: Fidel Bernstein MD, Shyam MD Al-Mubaslat, Ahmad MD ~ CC: Xochitl Bernstein DATE OF SERVICE: 07/26/2019 ENDOCRINE CONSULTATION NOTE CONSULTING PHYSICIAN: Dr. Disla. REASON FOR CONSULTATION: Uncontrolled type 2 diabetes mellitus, hypoglycemia. HISTORY OF PRESENT ILLNESS: This is a 54-year-old female patient whose medical background is noted for multiple issues including type 2 diabetes mellitus, who presented 2 days ago with ongoing difficulties pertaining to nonhealing right leg wound as well as severe persistent hypoglycemia. The patient was found to have a blood sugar of 51 mg/dL when EMS arrived and received glucagon prior to transfer to the ER. The patient maintains that she was diagnosed with type 2 diabetes mellitus only a year ago and that she is maintained on a combination of Lantus insulin 26 units q.p.m. as well as a human R insulin of variable doses prior to meals. She notes that her blood glucose values fluctuate widely and can range between 130 and 200 mg/dL for the most part. However, she also describes frequent and occasionally severe issues with hypoglycemia happening almost on a daily basis. The patient believes she has chronic kidney disease, but not heart disease, retinopathy or neuropathy. Interestingly, the patient has reported SEVERE ALLERGIES TOWARDS NOVOLOG AND HUMALOG INSULINS and is unable to use either one. The patient is known to have hypothyroidism and is maintained on levothyroxine 50 mcg daily. REVIEW OF SYSTEMS: CONSTITUTIONAL: Fatigue, tiredness, but not fever or chills. No significant changes in body weight. HEENT: Negative for sore throat, sinus pain or ear drainage. PULMONARY: Negative for hemoptysis, but noted for shortness of breath and intermittent cough, mostly productive. CARDIAC: Negative for chest pain, palpitations, syncope or presyncope. GASTROINTESTINAL: Noted for abdominal distention, abdominal discomfort, but no nausea or vomiting. The patient has early satiety. [address] [address] CONSULTATION Name: ROBERT BOYD Room #: 459-P [facility] IN M.R.#: [id number] Admission: 07/24/19 Attend Phys: Xochitl Disla MD Discharge: Date of : 63 Report #: [id number] NEUROLOGY: Negative for seizure activity or severe frequent headaches, but noted for the loss of consciousness associated with hypoglycemia as noted above. PSYCHIATRIC: The patient has background anxiety and depression issues. No hallucinations or delusions. Otherwise, review of systems noncontributory unless mentioned in HPI. PAST MEDICAL HISTORY: Noted for: 1. Type 2 diabetes mellitus. 2. Hypothyroidism. 3. Chronic pain syndrome. 4. Opiate dependence. 5. CHF. 6. Anxiety. 7. Left BKA. 8. Peripheral vascular disease. 9. COPD. 10. GERD. 11. Hypertension. OUTPATIENT MEDICATIONS: Include: 1. Mylanta p.r.n. 2. Tylenol p.r.n. 3. Protonix 40 mg daily. 4. Probiotics daily. 5. AccuNeb q. 4 hours p.r.n. 6. Aspirin 81 mg daily. 7. Buspirone 10 mg b.i.d. 8. Lorcet 5/325 q.4 hours p.r.n. 8. Levothyroxine 50 mcg daily. 9. Lantus insulin 26 units q.p.m. 10. Humulin R insulin 7 units 30 minutes a.c. 11. Torsemide 40 mg b.i.d. 12. Pulmicort 2 puffs b.i.d. 13. Clonazepam 0.5 mg t.i.d. 14. Voltaren gel p.r.n. ALLERGIES: 1. HUMALOG INSULIN. 2. NOVOLOG INSULIN. 3. EGGS. 4. CHEESE. 5. CHICKEN. 6. TRIMETHOPRIM: 7. AMOXICILLIN. 8. AZITHROMYCIN. [address] [address] CONSULTATION Name: ROBERT BOYD Room #: 459-P [facility] IN M.R.#: [id number] Admission: 07/24/19 Attend Phys: Xochitl Disla MD Discharge: Date of : 63 Report #: [id number] 9. CIPROFLOXACIN. 10. DIPHENHYDRAMINE 11. DOXYCYCLINE. 12. FENTANYL. 13. GARLIC. 14. IODINATED CONTRAST. 15. LEVOFLOXACIN. 16. MEPERIDINE. 17. METOCLOPRAMIDE. 18. MORPHINE. 19. ONDANSETRON. 20. PAROXETINE. 21. PREDNISONE. 22. PROMETHAZINE. 23. SERTRALINE. 24. SULFA. 25 TOMATO. 26. ERYTHROMYCIN. FAMILY HISTORY: Noncontributory. SOCIAL HISTORY: The patient is a lifelong smoker who quit a few months ago in 03/2019. Denies use of alcohol. Resides at a intermediate. PHYSICAL EXAMINATION: GENERAL: female patient who is not in apparent pain or distress. VITAL SIGNS: Blood pressure is 165/70 mmHg, heart rate is 86 beats per minute, respirations 20 per minute, temperature 37.1 degrees Celsius. CONSTITUTIONAL: The patient appears cachectic, chronically ill, but not in acute pain or distress. HEENT: Anicteric sclerae. Intact extraocular motions. NECK: Supple, no JVD, no thyromegaly. CHEST: Noted for moderate air entry bilaterally with scattered rales, rhonchi, but not crackles. HEART: Regular rate and rhythm without murmurs or gallops. ABDOMEN: Distended, somewhat uncomfortable to deep palpation, but without guarding. She has sluggish bowel sounds. EXTREMITIES: Lower extremity exam noted for left BKA. Trace edema. NEUROLOGIC: Awake, alert and oriented to time, place and person. The remainder of her examination is nonfocal. PSYCH: Interactive. She was anxious. She cried intermittently throughout interview and explained that she was anxious about the issue of hypoglycemia and passing out due to that. Otherwise, review of system is noncontributory other than those mentioned in HPI. LABORATORY RESULTS: Blood glucose on arrival was 270 and has since hovered [facility] [address] [place] [address] CONSULTATION Name: ROBERT BOYD Room #: 459-P ADM IN M.R.#: [id number] Admission: 07/24/19 Attend Phys: Xochitl Disla MD Discharge: Date of : 63 Report #: [id number] between 140 and 229 mg/dL. Otherwise, sodium 143, potassium 4.4, chloride 116, CO2 of 17, anion gap 10, BUN 32, creatinine 1.3, which is baseline for the patient. Glucose shows no documentation of hypoglycemia since her admission 2 days ago. AST 12, lipase 115, total bilirubin 0.2, calcium 7.2, phosphorus 4.1, magnesium 1.8, alkaline phosphatase 106, ALT 9, total protein 4.8, albumin 1.1, EGFR 43. Lactic acid 0.5. Total CPK 34, troponin negative. BNP 6019. Free T4 is 1.1. INR is 1.0. White blood count 3.6, hemoglobin 8.7, hematocrit 26.6, platelets 289. TSH 1.47. Hemoglobin A1c 9.7% on 06/27/2019. She ruled out for COVID-19 on 2 samples. ASSESSMENT AND PLAN: 1. Type 2 diabetes mellitus. The patient has what appears to be longstanding type 2 diabetes mellitus despite her report of this being only a 1-year-old diagnosis. Her baseline A1c is indicative of poor control overall. The patient is maintained on a basal bolus regimen and is restricted in her inability to receive analog rapid-acting insulin due to allergies documented towards Humalog and NovoLog and as such maintained on human R insulin for meal coverage. This indeed is a setup for hypoglycemia given the longer duration of action of this insulin compared to insulin analogs. This also necessitates caution while placing the patient on basal insulin, so as to avoid the potential for hypoglycemia, this high level. Since her admission, the patient has actually continued with hyperglycemia in the absence of active insulin coverage. I will initiate therapy with Lantus insulin at a reduced dose of 18 units daily. I will also add Tradjenta 5 mg daily to her regimen. The patient's kidney function test, while not perfectly normal, should allow for a partial dose metformin therapy such as 500 or 750 mg daily. I am hoping to shift her insulin needs somewhat towards oral therapy so as not to have to use human R insulin or minimize its use at the very least. Blood glucose monitoring will continue a.c. and at bedtime and further treatment changes will be made as necessary. 2. Hypoglycemia. As noted above, this has been persistent, recurrent and occasionally severe including upon this presentation. This is primarily a function of her current basal bolus regimen. I believe the use of human R insulin is a major set up for this issue. As noted above, I will attempt to minimize our need to use human R insulin in this regard. If we eventually must choose between more liberal control with higher than usual hemoglobin A1c target such as 8 or 8-1/2, so as to avoid hypoglycemia, then that would be a reasonable compromise to make. 3. Hypothyroidism. The patient is maintained on a stable regimen of levothyroxine 50 mcg daily. She is under adequate control judging by her TSH and free T4 levels. 4. Renal insufficiency. The patient has kidney function studies that are consistent with stage 3A chronic kidney disease as noted above and her lab results. Adequate and sustained glycemic and blood pressure control would be [address] [address] CONSULTATION Name: ROBERT BOYD Room #: 459-P [facility] IN M.R.#: [id number] Admission: 07/24/19 Attend Phys: Xochitl Disla MD Discharge: Date of : 63 Report #: [id number] quinones in avoiding further declines in her renal function going forward. I have reviewed the patient's clinical care notes, laboratory data, radiologic studies past and present for over 35 minutes in addition to my [facility] encounter time with the patient. I certainly appreciate this consultation by Dr. Disla. <ELECTRONICALLY SIGNED> By: Brenda Wren MD 07/27/19 1011 1454 [id number] Brenda Wren MD /nt
--- NOTE | 2019-07-27 13:58 | NUR ---
FAXED CLINICAL UPDATE TO [facility] RECEIVED CONFIRMATION AND LEFT MSG WITH SACHI IN ADM OF POSS DC TODAY OR TOMORROW. DP TO FOLLOW.
[2019-07-27 14:59] VITALS: BP 129/59
[2019-07-27 19:10] VITALS: BP 127/64
--- NOTE | 2019-07-27 19:26 | NUR ---
Assumed pt care at 7am.Pt in bed most of the time with o2. Assessment completed.vss.Pt snacks most of the time and not follow the rules.Dr Apple and Annette here,order noted.Pt has up to 4 bm this shift.Pericare given.Will continue to monitor.
[2019-07-28 04:17] LABS: HEMATOCRIT 24.2 % (37.0-47.0); MCH 28.4 pg (26.0-34.0); RBC 2.81 mil/uL (4.20-5.00); RDW 17.7 % (10.5-14.5); WBC 2.8 thou/uL (4.0-11.0)
--- NOTE | 2019-07-28 04:20 | NUR ---
ASSUMED CARE AT 1900, ASSESSMENT COMPLETED. PT DENIES PAIN OR NAUSEA. HS BLOOD SUGAR 167, NO SHORT ACTING INSULIN GIVEN, ONLY LONG-ACTING. PT NPO AT MIDNIGHT FOR POSSIBLE PROCEDURE WITH IR; PT EDUCATED ABOUT THE NEED TO BE NPO BUT KEPT STATING SHE WOULDN'T "LET THEM DO ANYTHING WITH ME."IV ABX GIVEN OVERNIGHT. HAS BEEN SR ON TELE. NO OTHER CONCERNS, WILL CONTINUE TO MONITOR.
[2019-07-28 07:38] VITALS: BP 158/75
[2019-07-28] MEDS ORDERED: LANTUS SUBQ (13:43)
[2019-07-28] MEDS ORDERED: TRADJENTA5 MG PO (13:43)
[2019-07-28] MEDS ORDERED: MEROPENEM500 MG IV (13:43)
[2019-07-28] MEDS ORDERED: GLUCOPHAGE XR750 MG PO (13:43)
--- NOTE | 2019-07-28 16:14 | NUR ---
DC ORDERS RECEIVED. IV REMOVED FROM R AC AND L THUMB. PT WILL HAVE ANTIBIOTICS FOR NEXT TEN DAYS, IS RECEIVING MIDLINE AT THIS TIME. PT IS CRYING STATES SHE DOES NOT WANT TO RETURN TO FACILITY BECAUSE "THEY TREAT ME HORRIBLE". CALL LIGHT W/I REACH. FRANCISCO CALLED TO FACILTY.
--- NOTE | 2019-07-28 16:14 | NUR ---
PT DISCHARGING TODAY BACK TO [facility] FAXED DC ORDES/SUMMARY SPOKE WITH CHRISTOPH IN ADM SHE RECEIVED ORDERS AND ARRANGED TRANSPORT BY [facility]AN FOR 1500 TODAY. PT NOTIFIED FAMILY AND UNIT NOTIFIED CHART COPY PER US. RN TO CALL REPORT TO [phone].
--- NOTE | 2019-07-28 16:36 | NUR ---
PT ADMITTED RELATED TO UTI, CELLULITIS, AND PROTINE CALORIE MALNITRITION. CM CALLED AND SPOKE WITH PT AT BEDSIDE. SHE APPEARED TO BE A&O X4. CM ROLE INTRODUCED. PT INDICATED THAT SHE LIVES AT [facility]. SHE STATED THAT SHE HAD A WC AND A PROSTHESIS AND THAT SHE HAD BEEN ABLE TO TRANSFER HERSELF SUPERVIS[employer]. PT INDICATED SHE PLANS TO RETURN TO FACILITY ONCE MEDICALLY STABLE. CARE TEAM INDICATED PT IS MEDICALLY STABLE TO DC THIS DAY. PT IS TO DC ON IV ABX A PICC IS TO BE PLACE. TRANSPORT ARRANGED FOR [id number]. NO OTHER CM INTERVENTION INDICTED. CASE CLOSED.
--- NOTE | 2019-07-28 16:42 | NUR ---
VASCULAR ACCESS NOTE. ORDER FOR PICC PLACEMENT. MIDLINE IS THE MOST APPROPRIATE IV ACCESS FOR THE ANTIBIOTIC AND LENGTH OF THERAPY FOR THIS PATIENT. I SPOKE WITH HANNAH GONZALEZ AND CLARIFIED AND CHANGED THE ORDER. PATIENT AGREEABLE TO HAVE MIDLINE PLACED. L BASILIC VEIN WIDELY PATENT ON U.S ASSESSMENT. PATIENT PREPPED AND DRAPED UNDER STERILE CONDITIONS. 3ML 1% LIDOCAINE INJ GIVEN. VEIN CANNULATED WITH ONE ATTEMPT. GUIDEWIRE ADVANCED EASILY. VEIN DILATED. GUIDEWIRE REMOVED INTACT. 4FR SL MIDLINE CATHETER TRIMMED TO 15CM. LINE PLACED WITH 15CM INTERNAL AND 0CM EXTERNAL. LINE FLUSHES AND DRAWS EASILY. MIDLINE OK TO USE. LINE RELEASED FOR IMMEDIATE USE TO RN.
== END 2019-07-28 18:50 | DRG 871 ==
LOC: ER 09:49 → EROBS 12:45 → 3W 20:17 → 4W 07-26 19:41
PROVIDERS: Emergency Medicine; Hospitalist; ADMIT Internal Medicine
PROC: 05HC33Z Insertion of Infusion Device into Left Basilic Vein, Percutaneous Approach (ICD-10-PCS; principal; 2019-07-28)
DX: A41.9 Sepsis, unspecified organism (principal); E43 Unspecified severe protein-calorie malnutrition; N12 Tubulo-interstitial nephritis, not specified as acute or chronic; L03.115 Cellulitis of right lower limb; N13.30 Unspecified hydronephrosis; N17.9 Acute kidney failure, unspecified; I13.0 Hypertensive heart and chronic kidney disease with heart failure and stage 1 through stage 4 chronic kidney disease, or unspecified chronic kidney disease; G89.4 Chronic pain syndrome; E03.9 Hypothyroidism, unspecified; I50.9 Heart failure, unspecified; F41.9 Anxiety disorder, unspecified; N18.3 Chronic kidney disease, stage 3 (moderate); J44.9 Chronic obstructive pulmonary disease, unspecified; Z20.828 Contact with and (suspected) exposure to other viral communicable diseases; D64.9 Anemia, unspecified; B96.1 Klebsiella pneumoniae [K. pneumoniae] as the cause of diseases classified elsewhere; F32.9 Major depressive disorder, single episode, unspecified; L98.499 Non-pressure chronic ulcer of skin of other sites with unspecified severity; S80.811A Abrasion, right lower leg, initial encounter; E11.22 Type 2 diabetes mellitus with diabetic chronic kidney disease; E11.51 Type 2 diabetes mellitus with diabetic peripheral angiopathy without gangrene; X58.XXXA Exposure to other specified factors, initial encounter; E11.649 Type 2 diabetes mellitus with hypoglycemia without coma; D63.8 Anemia in other chronic diseases classified elsewhere; Z91.14 Patient's other noncompliance with medication regimen; Z89.512 Acquired absence of left leg below knee; Z79.4 Long term (current) use of insulin; Z88.8 Allergy status to other drugs, medicaments and biological substances; Z88.1 Allergy status to other antibiotic agents; Z91.041 Radiographic dye allergy status; Z91.012 Allergy to eggs; Z87.891 Personal history of nicotine dependence; Y93.89 Activity, other specified; Y92.89 Other specified places as the place of occurrence of the external cause; Y99.8 Other external cause status
CPT/HCPCS: 10045; 10879

== ENCOUNTER 2019-08-08 20:12 | Emergency (ER) | payer OTHER ==
[~2019-08-08 20:12] MED LIST changes: +FEOSOL325 M1 PO; +GLUCOPHAGE XR750 MG PO; +KLONOPIN0.5 MG PO; +LIDODERM1 EACH TP; +LORATIDINE 10 M10 M1 PO; +MEROPENEM500 MG IV; +TRADJENTA5 MG PO
[2019-08-08 21:26] LABS: ABSOLUTE NEUTROPHILS 3.5 thou/uL (1.4-8.2); BASOPHILS 0.2 % (0.0-2.0); EOSINOPHILS 2.8 % (0.0-3.0); HEMATOCRIT 23.7 % (37.0-47.0); HEMOGLOBIN 7.6 gm/dL (12.0-15.0); MCH 28.6 pg (26.0-34.0); MCHC 32.3 g/dL (28.0-37.0); MCV 88.6 fL (80.0-100.0); PLATELET COUNT 223 thou/uL (150-400); RBC 2.68 mil/uL (4.20-5.00); RDW 17.8 % (10.5-14.5); WBC 5.1 thou/uL (4.0-11.0)
[2019-08-08 21:38] LABS: CALCIUM 7.4 mg/dL (8.5-10.1); CREATININE 1.7 mg/dL (0.6-1.0); POTASSIUM 4.8 mmol/L (3.5-5.1)
[2019-08-08 22:32] VITALS: BP 103/55
[2019-08-09] MEDS ORDERED: LOMOTIL TABLET1 EACH PO (00:24)
[2019-08-10] MEDS ORDERED: LOMOTIL TABLET1 EACH PO (17:31)
== END 2019-08-09 00:26 | disposition home or self-care (01) ==
LOC: ER 20:12
PROVIDERS: Emergency Medicine
DX: N39.0 Urinary tract infection, site not specified (principal); I13.0 Hypertensive heart and chronic kidney disease with heart failure and stage 1 through stage 4 chronic kidney disease, or unspecified chronic kidney disease; E11.22 Type 2 diabetes mellitus with diabetic chronic kidney disease; N18.2 Chronic kidney disease, stage 2 (mild); I50.9 Heart failure, unspecified; E78.5 Hyperlipidemia, unspecified; E03.9 Hypothyroidism, unspecified; J44.9 Chronic obstructive pulmonary disease, unspecified; Z95.828 Presence of other vascular implants and grafts; Z87.891 Personal history of nicotine dependence; Z88.8 Allergy status to other drugs, medicaments and biological substances; Z88.1 Allergy status to other antibiotic agents; Z91.012 Allergy to eggs; Z91.018 Allergy to other foods

== ENCOUNTER 2019-08-10 17:12 | Inpatient (IN) | payer OTHER ==
[~2019-08-10] VITALS: Ht 165.1 cm; Wt 64.9 kg
[~2019-08-10 17:12] MED LIST changes: +LOMOTIL TABLET1 EACH PO
[2019-08-10 17:15] VITALS: BP 131/62
[2019-08-10] MEDS ORDERED: LOMOTIL TABLET1 EACH PO (17:31)
[2019-08-10 18:03] LABS: HEMATOCRIT 24.8 % (37.0-47.0); HEMOGLOBIN 7.9 gm/dL (12.0-15.0); MCH 28.7 pg (26.0-34.0); MCHC 31.9 g/dL (28.0-37.0); MCV 89.8 fL (80.0-100.0); PLATELET COUNT 255 thou/uL (150-400); RBC 2.76 mil/uL (4.20-5.00); RDW 17.8 % (10.5-14.5); WBC 4.9 thou/uL (4.0-11.0)
[2019-08-10 18:10] LABS: URINE BILIRUBIN NEGATIVE (Negative); URINE BLOOD 1+ (Negative); URINE CLARITY CLEAR; URINE COLOR YELLOW; URINE GLUCOSE-RANDOM* NEGATIVE (Negative); URINE KETONES NEGATIVE (Negative); URINE NITRITE-REFLEX NEGATIVE (Negative); URINE PROTEIN (DIPSTICK) 3+ (Negative); URINE SPECIFIC GRAVITY 1.025 (1.005-1.035); URINE UROBILINOGEN 0.2 E.U./dl (0.2-1.0)
[2019-08-10 18:14] LABS: URINE LEUKOCYTES-REFLEX 1+ (Negative)
[2019-08-10 18:23] LABS: ALBUMIN 1.4 g/dL (3.4-5.0); ANION GAP 14 mmol/L (7-16); BUN 42 mg/dL (7-18); CALCIUM 7.4 mg/dL (8.5-10.1); CHLORIDE 113 mmol/L (98-107); CO2 12 mmol/L (21-32); CREATININE 2.2 mg/dL (0.6-1.0); GLUCOSE 50 mg/dL (74-106); LIPASE 57 U/L (73-393); POTASSIUM 5.3 mmol/L (3.5-5.1); SGOT 13 U/L (15-37); SGPT 15 U/L (30-65); SODIUM 139 mmol/L (136-145); TOTAL BILIRUBIN 0.2 mg/dL (0.2-1.0); TOTAL PROTEIN 5.5 g/dL (6.4-8.2); TROPONIN-I <0.06 ng/mL (<0.06)
[2019-08-10 18:30] LABS: SQUAMOUS 0-3 Few /LPF (0-3)
[2019-08-10 18:31] LABS: URINE WBC-REFLEX >25 Many /HPF (0-5); YEAST-REFLEX Present (None Seen)
[2019-08-10 18:32] LABS: CASTS None Seen /LPF (None Seen); CRYSTALS None Seen /LPF (None Seen); URINE RBC 0-2 Rare /HPF (0-2)
[2019-08-10 18:33] LABS: BACTERIA-REFLEX 1-9 Few /HPF (None Seen)
[2019-08-10 18:34] LABS: DIRECT BILIRUBIN < 0.1 mg/dL (<0.1-0.2)
[2019-08-10 18:56] LABS: ABSOLUTE NEUTROPHILS 3.5 thou/uL (1.4-8.2); ANISOCYTOSIS 2+
[2019-08-10 18:57] LABS: POLYCHROMASIA OCCASIONAL
[2019-08-10 20:09] LABS: BE(vivo) -20.4 mmol/L (-2 to +3); HCO3 7.8 mmol/L (22.0-26.0); PCO2 25.9 mmHg (35.0-45.0); PO2 71.3 mmHg (80.0-100.0); sO2 88.2 % (92.0-98.0)
[2019-08-10 20:10] LABS: pH 7.096 (7.360-7.450)
[2019-08-10 20:48] VITALS: BP 115/88
[2019-08-10 21:30] VITALS: BP 129/52
[2019-08-11] VITALS (7 sets, daily range): BP systolic 118–140; BP diastolic 49–78
[2019-08-11 05:32] LABS: BASOPHILS 0.9 % (0.0-2.0); HEMOGLOBIN 7.4 gm/dL (12.0-15.0); LYMPHOCYTES 18.3 % (24.0-44.0); MCH 28.3 pg (26.0-34.0); MCV 88.4 fL (80.0-100.0); MONOCYTES 9.3 % (1.0-8.0); PLATELET COUNT 241 thou/uL (150-400); POLYS 70.5 % (36.0-66.0); RDW 17.7 % (10.5-14.5); WBC 5.7 thou/uL (4.0-11.0)
[2019-08-11 06:06] LABS: CALCIUM 7.1 mg/dL (8.5-10.1); MAGNESIUM 1.9 mg/dL (1.8-2.4); POTASSIUM 5.1 mmol/L (3.5-5.1)
--- NOTE | 2019-08-11 06:44 | NUR ---
PATIENT ADMITTED FROM ER. ASSUMED CARE OF PATIENT AT 2114. PATIENT VERY TEARFUL AND ANXIOUS. PATIENT KEPT STATING THIS WAS THE NURSES FAULT. ASKED PATIENT TO CLARIFY, PATIENT STATED IT WAS FROM SLIPPING FROM W/C AND BEING THROWN IN BED AT THE FACILITY SHE WAS AT. PATIENT ALSO STATED THAT SHE DOES NOT WANT TO GO BACK THERE BECAUSE OF HOW THEY TREAT HER. SHE ALSO VOICED CONCERN ABOUT HER PURSE BEING LEFT THERE AND THINGS BEING TAKEN FROM HER WHILE WHE IS HERE. PATIENT HAS REDNESS AND EXCORIATION ON BUTTOCK. PICTURE TAKEN AND PLACED IN CHART.PATIENT LUNG SOUNDS COARSE WITH WHEEZING. REQUESTED/RECEIVED ORDER FROM YONI ROME FOR BREATHING TREATMENT. PATIENT ALSO TREATED FOR LOW BLOOD SUGAR. EXCELLENCE COACH NOTIFIED. PATIENT REPORTED BACK PAIN. ADMINISTERED TYLENOL ORDERED. PATIENT RESTED WELL FOR REST OF THE NIGHT.
[2019-08-11 07:13] LABS: HCO3 10.6 mmol/L (22.0-26.0); PCO2 27.6 mmHg (35.0-45.0); PO2 72.1 mmHg (80.0-100.0); pH 7.202 (7.360-7.450); sO2 91.3 % (92.0-98.0)
--- NOTE | 2019-08-11 13:01 | NUR ---
08:00 PT. C/O PAIN IN HER ABDOMEN. ABDOMEN IS DISTENDED AND SLIGHTLY FIRM, WILL DISCUSS WITH MD ON ROUNDS THIS AM. RIGHT UPPER ARM IV SITE IS PINKISH IN COLOR AND SLIGHT EDEMA AT SITE, WILL ALSO DISCUS WITH MD FOR POSSIBLE DISCONTINUATION OF SUCH. LEFT EJ FLUSHES BUT IS POSITIONAL AND ONLY WORKS IF SHE KEEPS HER HEAD TILTED TO THE RIGHT, BLOOD RETURN WAS OBTAINED FROM IT THOUGH. PT. REPORTS SHE DOES NOT WANT OT RETURN TO HER PRIOR FACILITY THEY "TREAT ME VERY POORLY AND DO NOT FEED ME", WILL REPORT TO HOUSEKEEPING COORDINATOR.
--- NOTE | 2019-08-11 15:36 | NUR ---
Chart reviewed and case discussed with the care team. Attempted to call the pt this afternoon in her room. Nursing reports she is sleeping and she will give writers cell number to the pt to call once she wakes up. Nursing reports that the pt as expressed concerns about care at the long term. The pt is a long-term care resident at [facility]. She is w/c bound with a prothesis and needs assist with all adl's, transfers and med mngt. The pt does not like the food at the facility and her diet restrictions. She is known to from multiple admissions over the past few months and has at times expressed interest in looking into other ltc options. She was living with her ex and his prior but they kicked her out. She has been estranged at times from family and does not want her son Brent contacted unless she consents or it is an emergency. The facility liason has been updated and will be out tomorrow to see the pt to discuss her concerns and maybe move her room to a different unit at the facility. She will bring her prothesis as well. DC urban and regional planner to fax a clinical update to their liason. The pt has enceph d/t sev hypoglycemia. She is normally on 3 liters of o2 at the facility. She has a complex medical situation with multiple comorbidities. Will f/u with the pt and the facility liason to address her concerns and dc plan.
--- NOTE | 2019-08-11 15:47 | NUR ---
FAXED CLINICAL UPDATE TO [facility] CONFIRMATION AND LEFT MSG WITH SACHI IN ADM. DP TO FOLLOW.
[2019-08-12 04:00] VITALS: BP 135/73
--- NOTE | 2019-08-12 05:59 | NUR ---
PATIENTS CARE WAS ASSUMED AT SHIFT CHANGE. PATIENT WAS ASSESSED AND MEDS WERE PASSED. PATIENT HAD SEVERAL ROUNDS OF EMISIS. PO MEDS ON HOLD. PATIENT HAD A LOT OF DARK BROWN EMISIS. WILL PASS TO DAY SHIFT THAT THE BICARB ON HOLD NEEDS AN ORDER TO MAKE IT OFFICAL OR APPERS THAT NURSING DISREGARDED THE ORDER. HOUR ROUNDS WERE DONE. THE BED IS IN A LOW AND LOCKED POSITION
[2019-08-12 06:30] LABS: ALBUMIN 1.3 g/dL (3.4-5.0); CALCIUM 6.6 mg/dL (8.5-10.1); CREATININE 1.9 mg/dL (0.6-1.0); PHOSPHORUS 6.5 mg/dL (2.5-4.9); POTASSIUM 4.8 mmol/L (3.5-5.1)
[2019-08-12 07:16] LABS: HEMATOCRIT 24.5 % (37.0-47.0); HEMOGLOBIN 7.5 gm/dL (12.0-15.0); MCH 27.5 pg (26.0-34.0); MCHC 30.8 g/dL (28.0-37.0); RBC 2.75 mil/uL (4.20-5.00); RDW 18.6 % (10.5-14.5); WBC 5.7 thou/uL (4.0-11.0)
[2019-08-12 07:23] VITALS: BP 148/74
--- NOTE | 2019-08-12 09:00 | NUR ---
SPOKE TO (SIERRA) AT BEDSIDE IN REGARDS TO PT.S STATUS AND WORK OF BREATHING. HE ORDERED SOME INTERVENTIONS. WE HAVE INCREASED HER OXYGEN TO 10L NC AT THIS TIME WITH HER 02 SATURATIONS HIGH 80'S LOW 90'S. MD IS QUESTIONING POSSIBLE ASPIRATION? SHE IS PASSING ALRGE BM'S NOW WILL SEND FOR OCCULT BLOOD THIS AM WELL. MILD NAUSEA AT PRESENT. WILL NOT PLACE NG AT THIS TIME DUE TO DIFFICULTY OF BREATHING AND GETTING THIS RESOLVED FIRST. PAGE OUT TO DR. DRAKE WELL
[2019-08-12 09:04] LABS: BE(vivo) -14.2 mmol/L (-2 to +3); HCO3 12.5 mmol/L (22.0-26.0); PCO2 32.1 mmHg (35.0-45.0); PO2 56.9 mmHg (80.0-100.0); sO2 83.8 % (92.0-98.0)
[2019-08-12 09:05] LABS: pH 7.207 (7.360-7.450)
--- NOTE | 2019-08-12 10:01 | HC ---
[facility] [place] [address] CONSULTATION Name: ROBERT BOYD Room #: 217-P [facility] IN M.R.#: [id number] Admission: 08/10/19 Attend Phys: Deacno Apple MD Discharge: Date of : 63 Report #: [id number] THIS REPORT FOR: cc: Fidel Bernstein MD, Shyam MD Al-Mubaslat, Ahmad MD ~ CC: Chris Bernstein DATE OF SERVICE: 08/11/2019 ENDOCRINE CONSULTATION NOTE CONSULTING PHYSICIAN: Dr. Jones. REASON FOR CONSULTATION: Hypoglycemia, type 2 diabetes mellitus. HISTORY OF PRESENT ILLNESS: This is a 54-year-old female patient who has a complex medical background noted for type 2 diabetes mellitus, COPD, congestive heart failure, hypertension, hypothyroidism, osteoarthritis as well as generalized anxiety disorder in addition to other issues. The patient has had type 2 diabetes mellitus for many years and her most recent regimen at her long-term care facility consisted of Lantus insulin in addition to human R insulin. With this regimen, the patient developed severe or recurrent issues with hypoglycemia and was admitted about 2 weeks ago to our hospital due to severe hypoglycemia. At that time, her regimen was adjusted to be based on a combination of Lantus insulin 16 units daily, Tradjenta 5 mg daily and metformin ER 750 mg once a day with the main intent of eliminating the scheduled use of human R insulin as well as limiting its use in a sliding scale manner only to absolute necessities. The patient did well during her last hospital stay with this regimen and we managed to keep her hypoglycemia free. The patient maintains that she has been treated with Lantus 26 units in addition to higher doses of human R insulin at her senior care facility and was subsequently admitted here with severe hypoglycemia as EMS brought her in with altered mental status and found to have a blood glucose of 20 mg/dL. The patient is also hypothyroid and has been maintained on levothyroxine 50 mcg daily for quite a while now. She is known to have hypertension and is status post left below-knee amputation. She has chronic renal insufficiency at a stage 2-3 chronic kidney disease. REVIEW OF SYSTEMS: CONSTITUTIONAL: Fatigue, tiredness, but not fever or chills or body weight changes. [address] [address] CONSULTATION Name: ROBERT BOYD Room #: 217-P [facility] IN M.R.#: [id number] Admission: 08/10/19 Attend Phys: Deacon Apple MD Discharge: Date of : 63 Report #: [id number] HEENT: Negative for sore throat, sinus pain, ear drainage. PULMONARY: Chronic baseline issues with shortness of breath and oxygen dependency in the setting of COPD. CARDIAC: Dyspnea on exertion, occasional palpitations, no chest pain or syncope. GASTROINTESTINAL: Occasional abdominal discomfort and nausea, but no vomiting. NEUROLOGY: No numbness, tingling, dizziness, lightheadedness. No seizure activity. PSYCHIATRIC: Baseline issues with PTSD and generalized anxiety disorder. The patient has been increasingly anxious lately. Otherwise, review of systems is noncontributory other than those mentioned in HPI. PAST MEDICAL HISTORY: 1. Type 2 diabetes mellitus. 2. Hypertension. 3. Chronic kidney disease stage 2-3. 4. Gastroesophageal reflux disease. 5. Peripheral vascular disease, status post left below-knee amputation. 6. Chronic obstructive pulmonary disease, oxygen dependent. 7. Congestive heart failure. 8. Hypothyroidism. 9. History of anemia. 10. History of gastroesophageal reflux disease. 11. History of pleural effusions. 12. Generalized anxiety disorder. 13. PTSD. OUTPATIENT MEDICATIONS: Include levothyroxine 50 mcg daily, Lorcet 5/325 mg q. 4 hours p.r.n., aspirin enteric coated 81 mg daily, AccuNeb q. 4 hours p.r.n., Protonix 40 mg daily, acetaminophen 650 mg q. 6 hours p.r.n., Lidoderm daily, loratadine 10 mg daily, Feosol 1 tab daily, Klonopin 0.5 mg p.o. q.i.d., Lantus insulin, currently as per the patient is taking 26 units daily, linagliptin 5 mg daily, metformin ER 750 mg daily, Atrovent as needed, Demadex 40 mg b.i.d. p.r.n. DRUG ALLERGIES: 1. The patient has reported drug allergies towards HUMALOG INSULIN with reported hives throat swelling and anaphylaxis like reaction. 2. EGGS. 3. CHEESE. 4. CHICKEN. 5. OXYCODONE 6. TRIMETHOPRIM. 7. AMOXICILLIN. 8. AZITHROMYCIN. 9. CIPROFLOXACIN. [address] [address] CONSULTATION Name: ROBERT BOYD Room #: 217-P [facility] IN M.R.#: [id number] Admission: 08/10/19 Attend Phys: Deacon Apple MD Discharge: Date of : 63 Report #: [id number] 10. DIPHENHYDRAMINE. 11. DOXYCYCLINE. 12. FENTANYL. 13. GARLIC. 14. IODINATED CONTRAST. 15. LEVOFLOXACIN. 16. MEPERIDINE. 17. METOCLOPRAMIDE. 18. MORPHINE. 19. ONDANSETRON. 20. PAROXETINE. 21. PREDNISONE. 22. PROMETHAZINE. 23. SERTRALINE. 24. SULFA. 25. TOMATO. 26. ERYTHROMYCIN. FAMILY HISTORY: Noncontributory. SOCIAL HISTORY: The patient lives at a senior care. Denies use of alcohol or illicit drugs. She had to quit smoking more than a year ago. PHYSICAL EXAMINATION: GENERAL: female patient who appears tired and anxious. Reports pain. She is tearful. VITAL SIGNS: Blood pressure is 139/74 mmHg, heart rate is 85 beats per minute, respiration 18 per minute, temperature 36.7 degrees. CONSTITUTIONAL: The patient is lying in bed, appears anxious. She was crying throughout our interview, says she is in pain, and does not appear to be in distress. HEENT: Anicteric sclerae. Intact extraocular motions. NECK: Supple, without JVD or thyromegaly. CHEST: Noted for moderate entry bilaterally with scattered rales. No crackles. HEART: Regular rate and rhythm without murmurs or gallops. ABDOMEN: Soft, lax. No guarding. Active bowel sounds. EXTREMITIES: Lower extremity exam is noted for left BKA. NEUROLOGIC: Awake, alert, appears confused largely nonfocal exam. PSYCHIATRIC: Anxious, tearful, crying, flight of ideas and unable to answer some of my questions appropriately. LABORATORY RESULTS: On arrival yesterday, her blood glucose was low as 46 mg/dL. Sodium 140, potassium 5.1, chloride 112, CO2 11, anion gap 17, BUN 39, creatinine 2.0, her baseline is more like 1.3. AST 13, lipase 57, total bilirubin 0.2, direct bilirubin less than 0.1, calcium 7.1, phosphorus 4.0, magnesium 1.9, alkaline phosphatase 144, ALT 15, total protein 5.5, albumin 1.4, [facility] [address] [place] [address] CONSULTATION Name: ROBERT BOYD Room #: 217-P ADM IN M.R.#: [id number] Admission: 08/10/19 Attend Phys: Deacon Apple MD Discharge: Date of : 63 Report #: [id number] EGFR 26. Lactic acid 0.5. Total CPK 34, troponin negative. BNP 26742. Free T4 1.1. White blood count 5.7, hemoglobin 7.4, hematocrit 23, platelets 241. Hemoglobin A1c 9.7%. TSH 1.471. ASSESSMENT AND PLAN: 1. Hypoglycemia. As noted in HPI, the patient has had severe, recurrent issues with hypoglycemia, which resulted in significant therapeutic changes during her last hospital stay, namely that of reducing her Lantus dosage significantly as well as eliminating the scheduled use of human R insulin with meals. She has done well with these changes as well as the addition of Tradjenta and metformin when seen last. Unfortunately, she reports that she has not been receiving these doses and instead had been treated with Lantus insulin 26 units daily in addition to higher than intended human R insulin. As noted above, the patient presented in severe hypoglycemia again. Currently, she is completely off any active antidiabetic therapy and has gradually stabilizing her blood glucose values. However, she remains well under 100 mg/dL and as such, I will continue to hold off on oral antidiabetic agents until she demonstrates further stability. My intent or my plan would be to resume her previous antidiabetic regimen once she had given us a consistent sense of stability as per her blood glucose values. 2. Type 2 diabetes mellitus. Uncontrolled baseline, but marked by severe, recurrent hypoglycemia as noted above. Therapeutic changes and plans are as noted above. 3. Hypothyroidism. The patient is maintained on levothyroxine 50 mcg daily with her thyroid function indices indicating adequate control on this dosage as of recently. I will maintain the patient on the same dose. 4. Renal insufficiency. The patient has baseline chronic kidney disease stage 2-3. This seems to be slightly worse on this presentation. This could possibly be due to dehydration. As the patient gets hydrated, her kidney function indices will be monitored closely. I have reviewed the patient's clinical care notes, laboratory data, and other pertinent clinical information past and present for over 35 minutes aside from my [id number] encounter with the patient. I certainly appreciate this consultation by Dr. Jones. <ELECTRONICALLY SIGNED> By: Brenda Wren MD 08/12/19 [id number] [id number] Brenda Wren MD /nt
[2019-08-12 12:00] VITALS: BP 132/67
--- NOTE | 2019-08-12 13:34 | NUR ---
Pt having respiratory issues this am and on bipap. Nursing reports diarrhea and vomiting as well. Visit with the Center liason canceled for today and rescheduled for tomorrow. The liason did bring pt's prothesis in and nursing has verified it was brought to the pt's room by security. Nursing to confirm that the pt is aware that the liason will try to visit with her tomorrow as she is not feeling well today. Will follow.
--- NOTE | 2019-08-12 15:03 | NUR ---
PAGED IV TEAM AGAIN FOR IV ACCESS FOR BICARB INFUSION, CALL HAS NOT BEEN RETURNED WILL CONTINUE TO TRY TO GET A SECONDARY ACCESS ON HER THAT FLUSHES EASILY HER EJ IS NOT FLUSHING CURRENTLY.
[2019-08-12 15:50] VITALS: BP 141/65
[2019-08-12 19:50] VITALS: BP 133/65
[2019-08-13] VITALS (7 sets, daily range): BP systolic 114–152; BP diastolic 55–78
--- NOTE | 2019-08-13 04:33 | NUR ---
ASSUMED CARE AT 1900. PT ALERT AND ORIENTED BUT CONSTANTLY ASKING FOR SOMETHING TO DRINK. RN EXPLAINED THE NEED OF FLUIDS MODERATION AND THE PENDING NPO ORDER AFTER MIDNIGHT. PT HAS BEEN KEPT NPO SINCE MIDNIGHT ALSO SHE COMPLAINS THAT SHE DOES NOT WANT TO BE NPO SINCE SHE DOES NOT WANT THE PROCEDURE THAT IS PLANNED. NO EPISODES OF NAUSEA AND VOMITING OVERNIGHT. DENIES ANY ABDOMINAL PAIN, ALTHOUGH BOWEL SOUNDS ARE HYPOACTIVE . VITALS STABLE. EXTERNAL CATHETER IN PLACE. ADEQUATE OUTPUT. Q2 TURNS TOLERATED. AND SR ON THE MONITOR. NO OTHER CONCERNS AT THIS TIME. OTHER ASSESSMENTS DOCUMENTED. WILL CONTINUE TO MONITOR AND FOLLOW POC.
--- NOTE | 2019-08-13 04:42 | NUR ---
PT ADMITTED YESTERDAY FROM [facility]. PT ALERT AND ORIENTED. DENIES CHEST PAIN, NAUSEA OR VOMITING. PT HAS WHEEZES ON EXERTION WITH SOB. 02 3L NC INITIATED FOR LOW 02 SATs IN 80s . MOTOR MECHANIC NOTIFIED FOR PRN BREATHING TREATMENTS. PT ABDOMEN DISTENDED WITH HYPOACTIVE BOWEL SOUNDS. EXTERNAL MALE CATHETER INITIATED FOR INCONTINANCE. PT HAS BEEN NPO PER THE ORDERS SINCE MIDNIGHT. NO OTHER CONCERNS. WILL CONTINUE TO MONITOR PT BG, VITALS AND POC.
[2019-08-13 05:26] LABS: RDW 17.9 % (10.5-14.5); WBC 4.8 thou/uL (4.0-11.0)
[2019-08-13 05:27] LABS: HEMATOCRIT 20.4 % (37.0-47.0); HEMOGLOBIN 6.7 gm/dL (12.0-15.0); MCH 28.7 pg (26.0-34.0); MCHC 32.8 g/dL (28.0-37.0); MCV 87.6 fL (80.0-100.0); RBC 2.33 mil/uL (4.20-5.00)
[2019-08-13 05:38] LABS: ALBUMIN 1.1 g/dL (3.4-5.0); CALCIUM 6.6 mg/dL (8.5-10.1); CREATININE 1.6 mg/dL (0.6-1.0)
--- NOTE | 2019-08-13 16:06 | NUR ---
Unable to speak with the pt this afternoon as she is having recurrent bouts of diarrhea per nursing. Pt aware that the facility liason and their DON are available to talk with her over the phone or in person regarding any care concerns. Nursing to assist the pt with calling my cell number with any specific care issues r/t the facility. The pt's concerns remain generalized to the entire facility. The pt is now back on 4liters of o2 and ST evaling her swallow d/t concerns for aspiration. Pt getting a unit of blood today d/t low hgb. Pt refused EGD this am as she did not want to remain NPO any longer. Center liason will continue to attempt to connect with the pt to address her room placement on another unit and pt's complaints about care. Will follow.
[2019-08-13 18:20] LABS: HEMATOCRIT 25.4 % (37.0-47.0); HEMOGLOBIN 8.4 gm/dL (12.0-15.0)
--- NOTE | 2019-08-13 20:11 | NUR ---
PT CARE ASSUMED AT 0700. ASSESSMENT CHARTED. MEDICATION CHARTED. PT REFUSED EGD; SPOKE WITH DR RIVAS. PT GIVEN 1 UNIT RBC. HGB 8.4 POST COMPLETION. PT HAD 6 LIQUID STOOLS; SPOKE WITH NOELLE; C.DIFFICLE TEST, ISOLATION AND FECAL MANAGEMENT SYSTEM ORDERED. PT NONCOMPLIANT,
--- NOTE | 2019-08-14 01:01 | NUR ---
PT REFUSED FECAL MANAGEMENT SYSTEM. PT STATED SHE KNOWS WHAT BUT SHE DOESNT WANT IT. EDUCATED IN NEED TO BE IN COMPLIANCE WITH DR ORDERS. VERBALIZED UNDERSTANDING STILL REFUSED. A&O X4 ABLE TO MAKE BASIC NEEDS KNOWN
[2019-08-14 01:07] LABS: HEPATITIS B SURFACE AG Negative (Negative); HEPATITIS C VIRUS AB 0.1 (0.0-0.9)
[2019-08-14 04:10] VITALS: BP 149/59
[2019-08-14 04:29] LABS: HEMATOCRIT 24.2 % (37.0-47.0); HEMOGLOBIN 8.1 gm/dL (12.0-15.0)
[2019-08-14 04:48] LABS: CALCIUM 7.3 mg/dL (8.5-10.1); CREATININE 1.5 mg/dL (0.6-1.0); PHOSPHORUS 4.7 mg/dL (2.5-4.9); POTASSIUM 4.1 mmol/L (3.5-5.1)
--- NOTE | 2019-08-14 05:17 | NUR ---
PT a&O X4 ABLE TO MAKE BASIC NEEDS KNOWN. OCC NON-COMPLIANT WITH CARE. DENIES PAIN SO FAR THIS SHIFT. PT REFUSED ORDERED FECAL MANAGEMENT SYSTEM. PT HAD A BM REPORTED AT HS BY TRIM INSTALLER, REPORTED IT WAS LOOSE BUT NOT FULLY LIQUID. NO NEW ACUTE FINDINGS SO FAR THIS SHIFT
[2019-08-14 07:15] VITALS: BP 150/69
[2019-08-14 11:37] VITALS: BP 125/58
[2019-08-14 13:08] LABS: CERULOPLASMIN 27.2 mg/dL (19.0-39.0)
[2019-08-14 15:32] VITALS: BP 134/61
--- NOTE | 2019-08-14 18:22 | NUR ---
ASSUMED CARE APPROX 0700. PT ALERT AND ORIENTED X4. ASSESSMENT CHARTED AND VSS. PT HAD 3 LOOSE STOOLS THIS AM. FECAL MANAGEMENT SYSTEM PLACED. AFTER PLACEMENT PT WANTED FECAL SYSTEM REMOVED. STATES THAT IT IS UNCOMFORTABLE. DISCUSSED AT LENGTH WITH DR. DRAKE AND PT AT BEDSIDE. PT STILL WANTED FECAL SYSTEM REMOVED. FECAL MANAGEMENT SYSTEM REMOVED. CDIFF RESULTS STILL PENDING. PT WAS ON 4LNC AT START OF SHIFT. OXYGEN WAS INCREASED TO 5-6LNC DUE TO PT DESATS IN THE 80S, BUT RECOVERED QUICKLY. PT IS CURRENTLY ON 4LNC AND O2SAT IS 95-96%. PT C/O WRIGHT THIS AM, BUT NO OTHER COMPLAINTS AFTER TYLENOL. DR. DRAKE NOTIFIED OF PT'S SKIN IN PERIANAL AREA. NYSTATIN CREAM ORDERED. PT SR ON TELE MONITOR THIS SHIFT.
[2019-08-14 19:30] VITALS: BP 129/63
[2019-08-15 03:50] VITALS: BP 144/61
[2019-08-15 09:00] VITALS: BP 144/86
[2019-08-15 12:30] VITALS: BP 141/71
[2019-08-15 12:52] VITALS: BP 152/72
--- NOTE | 2019-08-15 17:15 | NUR ---
ASSUMED CARE APPROX 0700. PT ALERT AND ORIENTED X4. ASSESSMENT CHARTED AND VSS. PT BS STABLE THIS SHIFT. CDIFF RESULTS POSITIVE. DR SALDIVAR AND DR. DRAKE NOTIFIED. PT WITH INCREASED LIQUID STOOLS. FECAL MANAGEMENT SYSTEM PLACED. PT HAD THE SYSTEM IN FOR 30 MINUTES AND WANTED IT REMOVED. FECAL MANAGEMENT SYSTEM D/C'D PER PT REQUEST. CT ABD/PELV COMPLETED. PT ON 4LNC AND SATS ARE IN LOW 90'S. PT C/O LEFT BACK PAIN. LIDOCAINE PATCH IN PLACE. WILL CONTINUE TO MONITOR.
[2019-08-15 17:30] VITALS: BP 141/71
[2019-08-15 19:24] VITALS: BP 140/71
--- NOTE | 2019-08-15 21:35 | NUR ---
PT RESTING IN BED ASLEEP WITH LIGHTS ON. PT AROUSABLE TO TOUCH. PT REQUESTED COFFEE WITH SUGAR, DIET SODA AND WARM BLANKETS ALL PROVIDED. PT HAS FEMALE EXTERNAL CATHETER. PT STATED SHE CAN FEEL WHEN SHE HAS LOOSE STOOLS AND THEY ARE USUALLY AFTER HER ANTIBIOTICS. PT COMPLIANT WITH MEDICATION. PT REMAINS IN ISOLATION FOR CDIFF. PT DOES YELL OUT LOUDLY AND SHARPLY FOR HER NEEDS VERSUS USING THE CALL LIGHT. LUNGS WITH WHEEZES 4L O2, HR IRREG ST, ABD DISTENDED. LBKA, CLUBBING OF FINGERS. FEMALE EXT CATHETER. PT VERBALIZED THAT SHE DOES NOT LIKE HER SENIOR CARE AND NO ONE THERE IS NICE.
[2019-08-16 04:26] VITALS: BP 132/64
[2019-08-16 05:11] LABS: ALBUMIN 0.9 g/dL (3.4-5.0); CALCIUM 7.2 mg/dL (8.5-10.1); CREATININE 1.5 mg/dL (0.6-1.0); PHOSPHORUS 4.9 mg/dL (2.5-4.9); POTASSIUM 4.1 mmol/L (3.5-5.1)
[2019-08-16 08:00] VITALS: BP 140/66
[2019-08-16 12:07] LABS: MITOCHONDRIAL ANTIBODY <20.0 Units (0.0-20.0)
[2019-08-16] MEDS ORDERED: FIRVANQ50 MG/1 ML PO (13:03)
[2019-08-16] MEDS ORDERED: AUGMENTIN 875-1 EACH PO (13:12)
--- NOTE | 2019-08-16 14:36 | NUR ---
RECEIVED PT'S CARE AROUND 714; PT. ON BED RESTING WITH EYES CLOSED; EQUAL CHEST RISING NOTICED; SR ON THE MONITOR; DURING AM ASSESSMENT PT. UPSET DUE TO "I CAN'T FIND MY TWO DOLLARS"; "I DO NOT LIKE THIEFS"; EDUCATED ABOUT WILL LOOK AFTER MEDICATION GIVEN; IRRITABLE; AM PILLS MEDICATION GIVEN; REFUSED LIDOCAIDE PATCH; REFUSED NYSTATIN; EDUCATED ABOUT THE NEED OF MEDICATION; NO ANSWER BACK; HAD SOFT FORM STOOL AFTER LUNCH; AGREED WITH NYSTATIN LOTION; D/C ORDERS ON PLACED; PER FURNACE ROASTER RIDE SET UP FOR 0; PT. UPDATE ON POC; ISOLATION MANTAINED; SR ON THE MONITOR; ASSESSMENT CHARGED; FOLLOWED POC; WORKING ON D/C PAPER WORK; WILL CALL FOR REPORT;
--- NOTE | 2019-08-16 15:23 | NUR ---
PT DISCHARGING TODAY TO [facility] FAXED DC ORDERS/SUMMARY TO FACILITY SPOKE WITH CHRISTOPH IN ADM SHE RECEIVED ORDERS AND ARRANGED TRANSPORT BY [facility] FOR 1700 TODAY. PT TO NOTIFY FAMILY OF DC UNIT NOTIFIED AND CHART COPY PER US. RN TO CALL REPORT TO [phone].
--- NOTE | 2019-08-18 14:11 | HC ---
[facility] [place] [address] CONSULTATION Name: ROBERT BOYD Room #: 217-P [facility] IN M.R.#: [id number] Admission: 08/10/19 Attend Phys: Deacon Apple MD Discharge: 08/16/19 Date of : 63 Report #: [id number] THIS REPORT FOR: cc: Fidel Bernstein MD, Shyam MD Gates,Rubin Aguiar MD ~ CC: Chris Bernstein DATE OF SERVICE: 08/11/2019 REASON FOR CONSULTATION: Possible cholecystectomy. ASSESSMENT: Distended gallbladder. RECOMMENDATIONS: 1. Thank you for the consultation. 2. Given the patient's severe comorbidities, hypoalbuminemia, no cholelithiasis, no right upper quadrant or epigastric abdominal pain, and no tenderness on physical exam, I do not recommend proceeding with cholecystectomy. 3. We will follow. HISTORY OF PRESENT ILLNESS: The patient is a 54-year-old female with many comorbidities who presents with a chief complaint of "high sugar and they threw me on the bed real hard." She denies any right upper quadrant or epigastric abdominal pain. She does endorse some left upper quadrant abdominal pain and tenderness. She denies nausea or vomiting. She denies constipation, diarrhea, or blood in her stools. She denies fevers, chills, night sweats, chest pain. The General Surgery team was consulted in regards to CT and ultrasound demonstrated a distended gallbladder. PAST MEDICAL HISTORY: 1. Generalized anxiety disorder. 2. COPD. 3. Chronic cellulitis. 4. Hypertension. 5. CHF. 6. Hypoglycemia. 7. Hypothyroidism. 8. Osteoarthritis. 9. Protein-calorie malnutrition. 10. Hypoalbuminemia. 11. History of UTIs. 12. PTSD. 13. Peripheral vascular disease. 14. Hypokalemia. [facility] [address] [place] [address] CONSULTATION Name: ROBERT BOYD Room #: 217-P [facility] IN [facility].#: [id number] Admission: 08/10/19 Attend Phys: Deacon Apple MD Discharge: 08/16/19 Date of : 63 Report #: [id number] 15. GERD. 16. CKD stage II. 17. Atelectasis. 18. Anemia. 19. Pleural effusions. 20. Diabetes mellitus. 21. Esophagitis. PAST SURGICAL HISTORY: Ventral hernia repair. SOCIAL HISTORY: Denies use of alcohol, tobacco or recreational drug use. FAMILY HISTORY: Denies malignancy or coagulopathy. REVIEW OF SYSTEMS: CONSTITUTIONAL: No fever. No chills. HEENT: Denies blurring of vision, double vision, headaches, hearing loss, sinus drainage or sore throat. Denies blurring of vision, double vision, headaches, hearing loss, sinus drainage or sore throat. CARDIOVASCULAR: Denies chest pain, palpitations, orthopnea or paroxysmal nocturnal dyspnea. RESPIRATORY: See above and below. GASTROINTESTINAL: See above and below. GENITOURINARY: Denies dysuria or hematuria or kidney stones. No urinary frequency, urgency or incontinence. Denies dysuria or hematuria or kidney stones. No urinary frequency, urgency or incontinence. MUSCULOSKELETAL: No joint pain. No muscle pain. NEUROLOGICAL: Denies tremor, stroke or seizure. Denies tremor, stroke or seizure. HEMATOLOGIC / LYMPHATICS: Denies easy bruising, easy bleeding or enlarged lymph nodes. SKIN: No rash or ulceration. ENDOCRINE: No heat or cold intolerance PSYCHIATRIC: Denies depression, anxiety, or schizophrenia. PHYSICAL EXAMINATION: VITAL SIGNS: Temperature 36.7, pulse 85, respiratory rate 18, blood pressure 139/74, pulse ox 98%. GENERAL: No apparent distress, alert and oriented x3. HEENT: PERRLA, EOMI, MMM, NCAT NECK: Supple. No LAD. CARDIOVASCULAR: Regular rhythm and rate. Hemodynamically stable. Normal capillary refill. Regular rhythm and rate. Hemodynamically stable. Normal capillary refill. PULMONARY: Nonlabored. Clear to auscultation bilaterally ABDOMEN: Soft, mildly tender to palpation in a pinpoint region in the left [address] [address] CONSULTATION Name: ROBERT BOYD Room #: [facility] IN M.R.#: [id number] Admission: 08/10/19 Attend Phys: Deacon Apple MD Discharge: 08/16/19 Date of : 63 Report #: [id number] upper quadrant, otherwise no tenderness, no guarding, rebound or rigidity. She has diffuse anasarca. EXTREMITIES: Calves soft, nontender, no edema. SKIN: No rashes or bruises. PSYCHIATRIC: Normal mood and affect Normal mood and affect NEUROLOGICAL: Grossly intact. CN II-XII grossly intact. MUSCULOSKELETAL: 5/5 strength in upper extremities and lower extremities bilaterally LYMPHATICS: No cervical, inguinal, or supraclavicular lymphadenopathy. LABORATORY DATA: White blood count 5.7, hemoglobin 7.4, platelets 241. Sodium 139, potassium 5.3, creatinine 2.2, bilirubin 0.2, AST 13, ALT 15, alkaline phosphatase 144. Troponin less than 0.06, albumin 1.4, lipase 57. IMAGING: CT of the abdomen and pelvis. IMPRESSION: 1. Marked bladder wall thickening, which is nonspecific. 2. Somewhat distended gallbladder. Ultrasound evaluation could be obtained if further evaluation were indicated. 3. Possible right hydronephrosis. This may be related to the bladder wall thickening. There is no ureteral stone. 4. Basilar areas of effusion and infiltrate and now atelectasis. Followup clearing suggested. 5. Diffuse anasarca with septations edema. 6. Large inguinal adenopathy. ABDOMINAL ULTRASOUND IMPRESSION: Mildly distended gallbladder without calculi. <ELECTRONICALLY SIGNED> By: Rubin Phillips MD 08/18/19 1411 1539 1950 Rubin Phillips MD /nt
--- NOTE | 2019-08-27 15:17 | HC ---
[facility] [place] [address] CONSULTATION Name: ROBERT OBYD Room #: 217-P [facility] IN M.R.#: [id number] Admission: 08/10/19 Attend Phys: Deacon Apple MD Discharge: 08/16/19 Date of : 63 Report #: [id number] THIS REPORT FOR: cc: Fidel Bernstein MD, Shyam MD Al-Absi,Kel Pires MD ~ CC: Chris Bernstein REASON FOR PRESENTATION: Altered mental status. REASON FOR CONSULTATION: Elevated creatinine. HISTORY OF PRESENT ILLNESS: This is obtained from the medical chart. The patient is currently having acute mental status changes and is not able to provide me with the history. She was brought to the Emergency Room after she reported abdominal pain and distention. Nurses checked in her nursing facility yesterday and she was found to have an altered mental status with blood sugars less than 20. She was brought to the Emergency Room for further evaluation and management. The patient had extensive past medical history including and not limited to COPD, anxiety disorder. She has peripheral vascular disease, status post lower extremity amputation. I have evaluated this patient on numerous occasions for acute kidney injury and chronic kidney disease. I saw the patient a couple of weeks ago and at that time, her acute kidney injury was managed appropriately and she was discharged with a creatinine value of 1.3. When the patient presented to the Emergency Room on August 09, she was found to have a creatinine of 2.2 mandating a Nephrology consultation. Of notice is the fact that this patient is known to have previous urological problems including hydronephrotic changes on her previous CTs and images. This continues to be present on her recent CT. However, the abdominal ultrasound that was done yesterday revealed no hydronephrosis. PAST MEDICAL HISTORY: 1. COPD, on oxygen. 2. Peripheral vascular disease, post-amputation. 3. Hypertension. 4. Diabetes mellitus. 5. Hypothyroidism. 6. Hydronephrosis. 7. Chronic kidney disease with a baseline creatinine anywhere from 1.2-1.5. 8. Repeated urinary tract infections. PAST SURGICAL HISTORY: 1. Left below-knee amputation. 2. Hernia repair. 3. Tubal ligation. [address] [address] CONSULTATION Name: ROBERT BOYD Room #: 217-P [facility] IN .R.#: [id number] Admission: 08/10/19 Attend Phys: Deacon Apple MD Discharge: 08/16/19 Date of : 63 Report #: [id number] SOCIAL HISTORY: She resides in a nursing facility. Other parts of the history are unobtainable; however, she did have a history of 35+ pack-year smoking history. FAMILY HISTORY: Obtained from the medical chart. Mother is with ovarian cancer. Father has prostate cancer. ALLERGIES: IODINATED CONTRAST. LONG-TERM MEDICATIONS: 1. Metformin. 2. Tradjenta. 3. Torsemide. 4. Lidocaine or Lidoderm. 5. Loratadine. 6. Pantoprazole. 7. Probiotic. 8. Levothyroxine. REVIEW OF SYSTEMS: Unobtainable given the patient's current mental status. PHYSICAL EXAMINATION: GENERAL: She is confused, very lethargic. VITAL SIGNS: Blood pressure is 119/64. Temperature is 36.5. Pulse rate is 75. HEAD AND NECK: No evidence of jugular venous distention, no bruit. CHEST: Limited air entry bilaterally with minimal bibasilar crackles. CARDIOVASCULAR: Regular with no rub detected. ABDOMEN: Soft with slight distention. LOWER EXTREMITIES: Evidence of left below-knee amputation. Extensive edema on the right side. LABORATORY VALUES: Hemoglobin is 7.4. Sodium is 140, potassium is 5.1, chloride is 112, carbon dioxide is 11, BUN is 39, creatinine is 2.0. ASSESSMENT, IMPRESSION, PLAN: 1. Anion gap metabolic acidosis. 2. Acute kidney injury. 3. Encephalopathy. 4. Hypoglycemia. 5. History of hydronephrosis. 6. History of repeated urinary tract infections. 7. Chronic obstructive pulmonary disease. 8. Hypothyroidism. 9. The patient's acute kidney injury and anion gap metabolic acidosis is likely related to her medications; however, septic possibility is in the differential diagnosis. The patient's septic workup has been initiated. Metformin had been [address] [address] CONSULTATION Name: ROBERT BOYD Room #: 217-P [facility] IN M.R.#: [id number] Admission: 08/10/19 Attend Phys: Deacon Apple MD Discharge: 08/16/19 Date of : 63 Report #: [id number] discontinued. 10. Continue with the sodium bicarbonate drip for now. 11. Initiate diuresis. 12. ID consultation. 13. Continue to follow electrolytes. 14. Continue to follow urine output and daily volume status. 15. Hypoglycemia is being managed appropriately by the primary team. <ELECTRONICALLY SIGNED> By: Kel Li MD 08/27/19 1517 0850 1105 Kel Li MD /nt
== END 2019-08-16 18:33 | DRG 371 ==
LOC: ER 17:12 → EROBS 19:42 → 2N 19:42
PROVIDERS: Emergency Medicine; Hospitalist; Internal Medicine Gastroenterology; Nurse Practitioner Family; Specialist; Surgery; ADMIT Hospitalist; ATTEND Hospitalist
DX: A04.72 Enterocolitis due to Clostridium difficile, not specified as recurrent (principal); J18.9 Pneumonia, unspecified organism; E43 Unspecified severe protein-calorie malnutrition; T80.212A Local infection due to central venous catheter, initial encounter; I13.0 Hypertensive heart and chronic kidney disease with heart failure and stage 1 through stage 4 chronic kidney disease, or unspecified chronic kidney disease; E87.2 Acidosis; G93.40 Encephalopathy, unspecified; J96.11 Chronic respiratory failure with hypoxia; D62 Acute posthemorrhagic anemia; N17.9 Acute kidney failure, unspecified; N13.6 Pyonephrosis; J44.0 Chronic obstructive pulmonary disease with (acute) lower respiratory infection; E11.649 Type 2 diabetes mellitus with hypoglycemia without coma; G89.4 Chronic pain syndrome; E03.9 Hypothyroidism, unspecified; F11.21 Opioid dependence, in remission; I50.9 Heart failure, unspecified; E11.22 Type 2 diabetes mellitus with diabetic chronic kidney disease; N18.2 Chronic kidney disease, stage 2 (mild); J44.9 Chronic obstructive pulmonary disease, unspecified; E11.51 Type 2 diabetes mellitus with diabetic peripheral angiopathy without gangrene; M19.90 Unspecified osteoarthritis, unspecified site; N32.9 Bladder disorder, unspecified; R59.0 Localized enlarged lymph nodes; F32.9 Major depressive disorder, single episode, unspecified; M54.9 Dorsalgia, unspecified; G47.00 Insomnia, unspecified; F39 Unspecified mood [affective] disorder; K82.8 Other specified diseases of gallbladder; E88.09 Other disorders of plasma-protein metabolism, not elsewhere classified; Y82.8 Other medical devices associated with adverse incidents; Y83.8 Other surgical procedures as the cause of abnormal reaction of the patient, or of later complication, without mention of misadventure at the time of the procedure; Z68.23 Body mass index [BMI] 23.0-23.9, adult; Z87.01 Personal history of pneumonia (recurrent); Z79.84 Long term (current) use of oral hypoglycemic drugs; Z79.899 Other long term (current) drug therapy; Z79.82 Long term (current) use of aspirin; Z91.012 Allergy to eggs; Z88.5 Allergy status to narcotic agent; Z89.512 Acquired absence of left leg below knee; Z99.81 Dependence on supplemental oxygen; Z88.2 Allergy status to sulfonamides; Z88.8 Allergy status to other drugs, medicaments and biological substances; Z87.440 Personal history of urinary (tract) infections; Z88.1 Allergy status to other antibiotic agents; Y92.89 Other specified places as the place of occurrence of the external cause; F41.1 Generalized anxiety disorder; K21.0 Gastro-esophageal reflux disease with esophagitis; F43.10 Post-traumatic stress disorder, unspecified; K52.9 Noninfective gastroenteritis and colitis, unspecified
CPT/HCPCS: 10081

== ENCOUNTER 2019-09-07 12:24 | Inpatient (IN) | payer OTHER ==
[~2019-09-07] VITALS: Ht 165.1 cm; Wt 50.8 kg
[~2019-09-07 12:24] MED LIST changes: +AUGMENTIN 875-1 EACH PO; +FIRVANQ50 MG/1 ML PO
[2019-09-07 12:26] VITALS: BP 137/81
[2019-09-07 13:05] LABS: BASOPHILS 0.7 % (0.0-2.0); HEMATOCRIT 36.2 % (37.0-47.0); HEMOGLOBIN 11.8 gm/dL (12.0-15.0); LYMPHOCYTES 22.8 % (24.0-44.0); MCH 27.9 pg (26.0-34.0); MCHC 32.7 g/dL (28.0-37.0); MCV 85.3 fL (80.0-100.0); MONOCYTES 4.8 % (1.0-8.0); PLATELET COUNT 334 thou/uL (150-400); POLYS 70.7 % (36.0-66.0); RBC 4.24 mil/uL (4.20-5.00); RDW 17.7 % (10.5-14.5); WBC 7.1 thou/uL (4.0-11.0)
[2019-09-07 13:09] LABS: ANION GAP 11 mmol/L (7-16); BUN 33 mg/dL (7-18); CHLORIDE 106 mmol/L (98-107); CO2 17 mmol/L (21-32); CREATININE 2.2 mg/dL (0.6-1.0); GLUCOSE 158 mg/dL (74-106); POTASSIUM 3.7 mmol/L (3.5-5.1); SODIUM 134 mmol/L (136-145)
--- NOTE | 2019-09-07 13:18 | NUR ---
Pt rolled at this time to change brief. Skin break down noticed on glutes. Pt has open area that is red. Pt reports this is from diarrhea.
[2019-09-07 13:27] LABS: ALBUMIN 1.6 g/dL (3.4-5.0); SGOT 15 U/L (15-37); SGPT 10 U/L (30-65); TOTAL BILIRUBIN 0.2 mg/dL (0.2-1.0); TOTAL PROTEIN 6.9 g/dL (6.4-8.2); TROPONIN-I <0.06 ng/mL (<0.06)
[2019-09-07 13:28] LABS: URINE BILIRUBIN NEGATIVE (Negative); URINE BLOOD 3+ (Negative); URINE CLARITY CLOUDY; URINE COLOR YELLOW; URINE GLUCOSE-RANDOM* NEGATIVE (Negative); URINE KETONES NEGATIVE (Negative); URINE LEUKOCYTES-REFLEX 2+ (Negative); URINE NITRITE-REFLEX NEGATIVE (Negative); URINE PROTEIN (DIPSTICK) 3+ (Negative); URINE SPECIFIC GRAVITY 1.025 (1.005-1.035); URINE UROBILINOGEN 0.2 E.U./dl (0.2-1.0)
--- NOTE | 2019-09-07 14:25 | NUR ---
Called SNF nurse, Sam and asked her to fax med list.
[2019-09-07 14:45] LABS: BACTERIA-REFLEX >30 Many /HPF (None Seen); CRYSTALS None Seen /LPF (None Seen); SQUAMOUS None Seen /LPF (0-3); URINE RBC 0-2 Rare /HPF (0-2); URINE WBC-REFLEX >25 Many /HPF (0-5)
--- NOTE | 2019-09-07 15:00 | NUR ---
SNF nurse contacted again about med list
[2019-09-07 15:37] VITALS: BP 122/64
--- NOTE | 2019-09-07 15:43 | EKG ---
[facility] [address] [address] [place] [address] ELECTROCARDIOGRAM REPORT Name: ROBERT BOYD Room #: 170- ADM IN M.R.#: [id number] Admission: 09/07/19 Attend Phys: Crhis Jones Discharge: Date of : 63 Report #: [id number] THIS REPORT FOR: cc: Fidel Bernstein MD, Shyam MD Lundgren,Aaron Brandt MD [facility] ~ THIS REPORT FOR: //name// [facility] ED Test Date: 2019-09-07 Test Time: 13:00:55 Pat Name: ROBERT BOYD Department: Room: [facility] Gender: F Bioassayist: odalys : 1965 Requested By: Risa Ramon Order Number: [id number] MD: Aaron Tejada Measurements Intervals [place] Rate: 76 P: 62 MI: 141 QRS: 48 QRSD: 85 T: 72 QT: 409 QTc: 460 Interpretive Statements Sinus rhythm Consider left ventricular hypertrophy Compared to ECG 06/26/2019 20:31:47 No significant changes Electronically Signed On 09-07-2019 15:43:40 CDT by Aaron Tejada [email or web address] <ELECTRONICALLY SIGNED> By: Aaron Tejada MD, [facility] 09/07/19 1543 1300 1300 Aaron Tejada MD, [facility] /EPI
[2019-09-07 15:53] VITALS: BP 121/64
[2019-09-07] MEDS ORDERED: GLUCOPHAGE XR750 M1 PO (15:59)
[2019-09-07] MEDS ORDERED: LANTUS SOL100 UNIT/1 SUBQ (16:00)
[2019-09-07] MEDS ORDERED: SIMETHICON CHEW80 M1 PO (16:02)
[2019-09-07] MEDS ORDERED: TRADJENTA5 MG PO (16:03)
[2019-09-07] MEDS ORDERED: PROAIR RESPICL90 MCG INH (16:04)
[2019-09-07] MEDS ORDERED: TYLENOL325 M1 PO (16:05)
--- NOTE | 2019-09-07 20:13 | NUR ---
PT ARRIVED TO FLOOR AROUND 1700. SHE IS ALERT AND ORIENTED. HAVING LOOSE BM. VSSA/4L O2 AT BASELINE. PIV WITHOUT ISSUES. CLEAR DIET, TOLERATING. NO COMPLAINTS AT THIS TIME. FALL PRECAUTIONS IN PLACE. CALL LIGHT IN REACH
--- NOTE | 2019-09-08 03:46 | NUR ---
patient aox4 makes needs known. patient on clear fluids and tolerated wells. patient incontinent this shift pericare and barrier applied as needed. patient turned q 2 hours. patient on 4L of oxygen, no soa or distress noted.patient in bed asleep at this time breathing regular and unlaboured.
[2019-09-08 05:54] LABS: HEMATOCRIT 32.6 % (37.0-47.0); HEMOGLOBIN 10.4 gm/dL (12.0-15.0); MCH 28.4 pg (26.0-34.0); MCHC 31.8 g/dL (28.0-37.0); MCV 89.5 fL (80.0-100.0); RBC 3.65 mil/uL (4.20-5.00); RDW 18.4 % (10.5-14.5); WBC 3.9 thou/uL (4.0-11.0)
[2019-09-08 06:56] LABS: ALBUMIN 1.3 g/dL (3.4-5.0); CALCIUM 7.5 mg/dL (8.5-10.1); CREATININE 1.5 mg/dL (0.6-1.0); PHOSPHORUS 4.7 mg/dL (2.5-4.9); POTASSIUM 3.3 mmol/L (3.5-5.1)
[2019-09-08 07:31] VITALS: BP 126/64
[2019-09-08 09:11] LABS: BE(vivo) -14.7 mmol/L (-2 to +3); HCO3 11.5 mmol/L (22.0-26.0); PCO2 28.5 mmHg (35.0-45.0); PO2 107.6 mmHg (80.0-100.0); pH 7.224 (7.360-7.450); sO2 97.1 % (92.0-98.0)
--- NOTE | 2019-09-08 14:03 | NUR ---
Nutrition: pt admitted with multiresistant UTI, N/V x 2 days, CHELSEY, recent C diff. RD evaled due to BMI 18.6. Pt voices no weight changes. UBW 140#. Re-weighed pt at 124#. REC zero bed and attempt again for accuracy or obtained standing scale weight. Pt reports decreased appetite past several days but ate 100% today. Is edentulous and noted that ST has rec mech soft diet in the past but pt has refused. BG 94-182 on carb controlled diet. + diarrhea. Pt voices no needs at present, refusing supplements. Followup for accuracy on weight trends. Consider low nutrition risk.
[2019-09-08 15:12] VITALS: BP 140/61
--- NOTE | 2019-09-08 15:57 | NUR ---
PT ADMITTED RELATED TO MULTIRESISTANT UTI, N/V, CHELSEY. CM ATEMPTED PC TO PT'S ROOM USING EXTENSION 62498. PT DIDN'T ANSWER. PT FAMILIAR TO CM FROM PREVIOUS ADMISSIONS. PT IS LTC RESIDENT AT [facility]. SHE HAS A PROSTHESIS AND IS WC BOUND AT FACILITY. PT IS ON 4L O2 CARPET INSTALLER. IT IS ANTICIPATED THAT PT WILL LIKELY RETURN TO [facility] ONCE MEDICALLY STABLE. REFERRAL SENT TO [facility].
[2019-09-08 20:16] VITALS: BP 115/70
--- NOTE | 2019-09-08 20:22 | NUR ---
Assumed pt care this am, critical labs were called at shift change in the am, informed MD orders given some of the medications restarted. Pt hs told MD regarding her breathing treatment. Had loose stools through out the day, new orders given. POC followed, ext fc in place draining dark yellow urine. No signs or verbalizations of distress noted. Barrier cream placed on the prerineal area and buttocks.
[2019-09-08 23:40] LABS: URINE POTASSIUM-RANDOM* 11.4 mmol/L
--- NOTE | 2019-09-09 03:42 | NUR ---
VSS-AFEBRILE. MULTIPLE EPISODES OF DIARRHEA OVERNIGHT, SAMPLE TAKEN AND SENT TO LAB DUE TO LAST CDIFF TEST BEING OVER ONE MONTH AGO. MEDICATED WITH LOPERAMIDE WITH EACH STOOL ORDERED, SOME RELIEF NOTED DURING LATTER PART OF SHIFT. BUTTOCKS REMAIN EXCORIATED AND SORE, BARRIER CREAM APPLIED. RIGHT FA IV INFILTRATED, CURRENTLY ATTEMPTING TO PLACE NEW IV. WARM BLAKET APPLIED TO INFILTRATION SITE. CALLS APPROPRIATELY FOR ANY NEEDED ASSISTANCE.
--- NOTE | 2019-09-09 05:34 | NUR ---
MULTIPLE ATTEMPTS BY NURSING STAFF TO PLACE A NEW IV WERE UNSUCCESSFUL. IV ANTIBIOTICS CANNOT BE ADMINISTERED UNTIL IV IS PLACED. PIN DRAFTER OPERATOR TO ATTEMPT PLACEMENT.
[2019-09-09 07:03] LABS: HEMATOCRIT 32.1 % (37.0-47.0); HEMOGLOBIN 10.2 gm/dL (12.0-15.0); MCH 28.4 pg (26.0-34.0); MCHC 31.8 g/dL (28.0-37.0); MCV 89.5 fL (80.0-100.0); RBC 3.59 mil/uL (4.20-5.00); RDW 18.6 % (10.5-14.5); WBC 4.8 thou/uL (4.0-11.0)
[2019-09-09 07:23] LABS: ALBUMIN 1.3 g/dL (3.4-5.0); CALCIUM 7.3 mg/dL (8.5-10.1); CREATININE 1.4 mg/dL (0.6-1.0); POTASSIUM 3.1 mmol/L (3.5-5.1); TOTAL BILIRUBIN 0.2 mg/dL (0.2-1.0); TOTAL PROTEIN 4.9 g/dL (6.4-8.2)
[2019-09-09 07:38] VITALS: BP 139/66
--- NOTE | 2019-09-09 13:48 | NUR ---
ALVARO reviewed chart and spoke with attending physician. Pt is in isolation for c.diff. Pt with hx of left BKA. SW was notified earlier today that pt's son was interested in having pt move to [facility]. Pt's current facility [facility], will be closing and facility is working with their residents/families to move pts to alternate facilities. Referral info sent to [facility] by train planner. ALVARO spoke with pt via phone. Introduced role of ALVARO. Pt states she is aware of needing to move, but requests that she return to [facility] when discharged from [facility], then move to [facility] at a later time. ALVARO contacted [facility] liaison to provide update. Awaiting call back at this time. ALVARO is following to assist as needed with discharge planning.
--- NOTE | 2019-09-09 15:16 | NUR ---
[facility] PT'S SON NOTIFIED FACILITY THAT SINCE THEY ARE CLOSING IN NOV.THAT PT IS INTERESTED IN [facility] FAXED REFERRAL AND RECEIVED CONFIRMATION AND LEFT MSG WITH LINDA IN ADM. DP TO FOLLOW.
[2019-09-09 16:00] VITALS: BP 117/59
[2019-09-09 19:17] VITALS: BP 121/57
--- NOTE | 2019-09-10 04:55 | NUR ---
VSS-AFEBRILE. LUNGS CLEAR-2LNC IN PLACE. MULTIP-LE EPISODES OF SOFT, SEMI FORMED STOOL. PARTIAL BED BATH, BARRIER CREAM APPLIED TO PINK BUTTOCKS WITH EACH CHANGE. MEDICATED FOR C/O HEADACHE X 2, PARTIAL RELIEF NOTED WITH SLEEPING. FALL PRECAUTIONS IN PLACE.
[2019-09-10 06:20] LABS: ALBUMIN 0.9 g/dL (3.4-5.0); CREATININE 0.9 mg/dL (0.6-1.0); PHOSPHORUS 2.5 mg/dL (2.5-4.9)
[2019-09-10 06:27] LABS: CALCIUM 5.3 mg/dL (8.5-10.1); POTASSIUM 2.1 mmol/L (3.5-5.1)
[2019-09-10 07:42] VITALS: BP 113/72
--- NOTE | 2019-09-10 14:59 | NUR ---
ALVARO reviewed chart and spoke with attending physician. Pt is progressing towards goals for discharge. Pt may be ready to d/c over the weekend. ALVARO contacted [facility] liaison, who states that pt's belongings have already been moved to [facility], and they can admit pt over the weekend. Sharon for [facility] to speak with pt today via phone. ALVARO spoke with pt via phone to provide update. Pt is adamant about returning to [facility] at time of discharge and then moving to [facility]. Staff at facility to discuss with pt today. [facility] liaison with [facility] will need to be contacted to assist with discharge. Chart will need to be copied. Finalized discharge orders/summary will need to faxed when available. ALVARO is available to assist as needed with discharge planning. [facility] (Liaison): [phone]
[2019-09-10 16:13] VITALS: BP 138/73
--- NOTE | 2019-09-10 19:48 | NUR ---
Assumed pt care at 7am.Pt in bed very needy and loves sweet things but won't take insulin for elevated bs.Assessment completed.vss.Dr Jones here,order noted.Opium given per pt request.No diarrhea noted today. Pt in bed sleeping on and off.Will continue to monitor.
[2019-09-10 20:36] VITALS: BP 136/65
[2019-09-11 03:28] LABS: CREATININE 1.3 mg/dL (0.6-1.0); MAGNESIUM 1.3 mg/dL (1.8-2.4)
[2019-09-11 03:29] LABS: CALCIUM 7.3 mg/dL (8.5-10.1); POTASSIUM 3.7 mmol/L (3.5-5.1)
[2019-09-11 08:00] VITALS: BP 128/68
--- NOTE | 2019-09-11 08:00 | NUR ---
PROGRESS PT A/O X4 INCONTINENT AT TIMES URINE YELLOW WITH MILKY LIKE CLOUDINESS. SKIN C/D/I PT ABLE TO ASSIST IN ADL'S PERICARE VSS, POSSIBLE DC BACK TO FACILITY TODAY.
[2019-09-11 16:00] VITALS: BP 133/84
--- NOTE | 2019-09-11 18:22 | NUR ---
Assumed pt care at 7am.Pt in bed sleeping on and off.Calls out almost every hour for diet drink and coffer when awake.Assessment completed.vss but elevated blood sugar noted.Pt refused insulin at all meals.Temp was 100.7 at 1620. Tylenol po given with partial relief.Piv replaced today by iv team.Pt was crying later this evening c/o. Warm blanket given.Will continue to monitor.
[2019-09-11 20:14] VITALS: BP 142/73
--- NOTE | 2019-09-12 04:14 | NUR ---
ASSUMED CARE OF PT AT 1900HRS. PT AOX4 AND LETS NEEDS BE KNOWN. FALL PRECAUTION IN PLACE. PT DENIED PAIN OR NAUSEA. ASSESSMENT CHARTED. ABX TREATMENT CONTINUED. PT REFUSING INSULIN. PT HAS GOOD APPETITE, THUS, BS REMAINS HIGH. PT HAD A LOW GRADE TEMP BUT OTHER VSS. PT WAS ABLE TO GET COMFORTABLE AND SLEEP PART OF THE SHIFT. VSS AND NO S/S OF ACUTE DISTRESS. WILL CONTINUE TO MONITOR.
[2019-09-12 05:50] LABS: ALBUMIN 1.1 g/dL (3.4-5.0); CALCIUM 7.5 mg/dL (8.5-10.1); PHOSPHORUS 3.7 mg/dL (2.5-4.9)
[2019-09-12 06:08] LABS: POTASSIUM 5.3 mmol/L (3.5-5.1)
--- NOTE | 2019-09-12 07:29 | NUR ---
PT HAS BEEN SCRATCHING RLE AND CAUSED A SKIN TEAR ON THE RIGHT YEBOAH. YEBOAH WAS WRAPPED WITH GAUZE.
[2019-09-12 07:42] VITALS: BP 137/65
[2019-09-12 12:27] LABS: FOLIC ACID 8.3 ng/mL (8.6-58.9)
[2019-09-12 16:10] VITALS: BP 134/70
--- NOTE | 2019-09-12 17:41 | NUR ---
A/O, anxious sometimes; sensitive to coldness during the first half of the shift. no BM. CT done. refused insulin.
--- NOTE | 2019-09-12 18:50 | NUR ---
Doctor Alivia ordered a "urine catheter insertion." the staff tried to call Dr. Bunch for confirmation, did not get response; called supervisor taping, Marko Zhu asked the staff to follow the order to put a urine catheter in.
--- NOTE | 2019-09-12 19:19 | NUR ---
Patient refuded to have a urine catheter inserted. have not got response from Dr. Bunch. the night nurse is aware.
[2019-09-12 20:13] VITALS: BP 138/77
--- NOTE | 2019-09-13 03:16 | NUR ---
patient incontient this shift pericare and barrier cream applied as needed. patient o9n 3l of 0xygen no soa or distress noted. fall precaution in place.patient in bed asleep at this time breathing regular and unlaboured.
[2019-09-13 07:30] VITALS: BP 172/94
[2019-09-13 11:53] VITALS: BP 160/91
--- NOTE | 2019-09-13 11:58 | NUR ---
PHYSICIAN INDICATED LIKELY DC TO FACILITY FRIDAY. CM SPOKE WITH LIAISON AT [facility] AND SHE INDICATED THAT SHE HAD SPOKEN WITH PT ABOUT DISCHARGING DIRECTLY TO [facility] ONCE MEDICALLY STABLE INSETAD OF BACK TO [facility]. CLINICAL UPDATE WITH ANTICPATED DC DATE SENT TO OP CENTER. CM TO FOLLOW INDICATED WITH DC PLANNING.
--- NOTE | 2019-09-13 14:57 | NUR ---
ASSUMED CARES AT 0700. PT AWAKE, ORIENTED*4 BUT FORGETFUL. C/O LEFT THIGH PAIN, REPOSITIONED EXTREMITY RELIEVES THE PAIN. BP ELEVATED THIS AM, BP LOWERING MEDS ADMINISTERED. IV ON RIGHT FOREARM REMAINS INTACT AND PATENT. IV FLUIDS DC'D. IV ANTIBIOTICS ADMNINISTERED ORDERED. PERICARE GIVEN AFTER EVERY TOILETING/ INCONTINENT EPISODE, BARRIER CREAM AND NYSTATIN POWDER APPLIED. PT REFUSING TO REPOSITION FROM SIDE TO SIDE AND GETTING FRUSTRATED WHEN TEACHING HER THE IMPORTANCE OF STAYING OFF HER BOTTOM. LS WHEEZY, PT RECEIVING BREATHING TREATMENTS ORDERED, ON 3L VIA NASAL CANNULA AND STABLE SATS. Q1H VISUAL CHECKS. CALL LIGHT WITHIN REACH. FALL PRECAUTIONS IN PLACE
[2019-09-13 15:24] VITALS: BP 132/80
--- NOTE | 2019-09-13 15:38 | NUR ---
FAXED CLINICAL UPDATE TO [facility] RECEIVED CONFIRMATION AND LEFT MSG WITH LINDA IN ADM OF POSS DC THURSDAY 09/14.
[2019-09-13 19:46] VITALS: BP 123/61
--- NOTE | 2019-09-14 02:46 | NUR ---
ASSUMED CARE OF PT @1900 PT RESTING IN BED. A&3-4 BUT FORGETFULL. INCONTINENT OF B&B. REFUSED EXT FOLLEY CATH. GETS SCHEDULED BX. IV INTACT AND SL. ON 3L OF O2 NO FURTHER SIGNS OF DISCOMFORT. HAD 2BM THIS SHIFT IMODIUM GIVEN. FALL PREC IN PLACE AND CALL LIGHT IN REACH WILL CONT WITH POC TILL EOS.
[2019-09-14 07:53] VITALS: BP 129/77
[2019-09-14 11:20] LABS: CALCIUM 7.5 mg/dL (8.5-10.1); CREATININE 1.1 mg/dL (0.6-1.0); POTASSIUM 4.5 mmol/L (3.5-5.1)
--- NOTE | 2019-09-14 12:27 | NUR ---
Assumed pt care at 7am.Pt in bed resting and watching tv.Assessment completed. vss.but blood sugar was 426 at breakfast pt took regular insulin reluctantly with breakfast.Dr Jones here,order noted.Pt refused jurado catheterplacement but rather transfered to [facility] for urology care.Dr Jones paged. Will be waiting foe his return call.
[2019-09-14 14:36] VITALS: BP 122/75
--- NOTE | 2019-09-14 16:17 | NUR ---
ATIF NOTIFIED THAT DR. GALLO IS INDICATING THAT PT NEEDS TRANSFERED FOR UROLOGY AND THAT HE WOULD LIKE TO GET PT TO [facility]. ATIF MET WITH PT AT BEDSIDE THIS DAY. SHE IS CONSENTING FOR POSSIBLE TRANSFER. FORM SIGNED. CM COMPLETED K[facility] FROM. ATIF CONTACTED [facility] AND PROVIDED DEWAYNE INFO ABOUT PT AND REASON FOR TRANSFER. CM FAXED CLINICAL OVER. AWAITING RESPONSE. SHE INIDCATED [facility] HAS UROLOGY ON STAFF TODAY. PT HASN'T HAD COVID TEST AND HAS SOB AND TEMP OF 100.7 09/10 SO NEEDS FINIANCIAL AND MEDICAL CLEARANE FOR POSSIBLE ADMISSION. NUMBER FOR [facility] AND UNIT PROVIDED FOR FOLLOW UP FROM [facility]. CHART COPY ORDERED. [facility]D FROM AND TRANSFER FORM IN [employer] CONSULTANT.
[2019-09-14 19:46] VITALS: BP 118/64
--- NOTE | 2019-09-15 05:43 | NUR ---
progress pt a/o x4 skin c/d/i. vss voiding qs no stools tonight. denies pain just states she is tired of coughing.Pt on 5 liters o2 via hiflow canula with humidity. rt tx's q4hrs given with effect. pt's lung sounds have coarse crackles in bilateral upper lobes and diminished in the bases. pt's skin c/d/i with no areas of breakdown noted. pt repositions self independently. plans to discharge back to al when medically stable.
[2019-09-15 07:30] VITALS: BP 1525/83
[2019-09-15 08:52] VITALS: BP 152/83
--- NOTE | 2019-09-15 10:00 | NUR ---
Assumed care of pt. at 0700. Patient had consult with Dr. Grubbs and agreed to have jurado catheter inserted. It was insterted by FLORENCIA Laguerre at 0950 without problems and yielded 400 mLs of cloudy pale yellow urine.
[2019-09-15] MEDS ORDERED: FLUCONAZOLE 10100 MG PO (10:34)
[2019-09-15] MEDS ORDERED: FIRVANQ50 MG/1 ML PO (10:34)
[2019-09-15] MEDS ORDERED: AMLODIPINE BESY10 MG PO (10:35)
[2019-09-15] MEDS ORDERED: SODIUM BICARBO650 M3 PO (10:35)
[2019-09-15] MEDS ORDERED: CALTRATE-600 W1 EACH PO (10:35)
[2019-09-15] MEDS ORDERED: FLOMAX0.4 MG PO (10:40)
--- NOTE | 2019-09-15 12:26 | NUR ---
TODAY PT CONSENTED TO [facility] CATHETER BEING PLACED. PHYSICIAN INDICATED SHE NO LONGER REQUIRED INPATIENT TRANSFER FOR UROLOGY AND WAS MEDICALLY STABLE TO DC TO OP CENTER. ORDERS ENTERED. ORDERS AND NEGATIVE COVID TEST FAXED TO FACILITY. CM NOTIFIED PT OF PROBABLE DC. SHE IS AWARE AND AGREEABLE. CM NOTIFIED LIAISON AND SHE WILL ARRANGED STRETCHER TRANSPORT THROUGH [facility]. CM AWAITING TIME. CM NOTIFIED LIAISON THAT PT WILL NEED OP FOLLOW UP FOR UROLOGY.
--- NOTE | 2019-09-15 14:30 | NUR ---
Pt agreed to jurado cath insertion today.Size 16fr placed earlier today aroud 10am.4OOml cloudy urine obtained.One hour later,pt called out for jurado cth removal.She reported painful meatus rt jurado.Dr Jones notified,order noted. OP rehab center called for report but noone answer the phone.Will call back later before pt dc.Will continue to monitor.
== END 2019-09-15 16:21 | DRG 372 ==
LOC: ER 12:24 → EROBS 15:11 → 4W 16:28
PROVIDERS: Physician Assistant; ADMIT Hospitalist; ATTEND Hospitalist
DX: A04.72 Enterocolitis due to Clostridium difficile, not specified as recurrent (principal); N17.9 Acute kidney failure, unspecified; E87.2 Acidosis; B37.41 Candidal cystitis and urethritis; N13.6 Pyonephrosis; I13.0 Hypertensive heart and chronic kidney disease with heart failure and stage 1 through stage 4 chronic kidney disease, or unspecified chronic kidney disease; G89.4 Chronic pain syndrome; E03.9 Hypothyroidism, unspecified; I50.9 Heart failure, unspecified; F41.9 Anxiety disorder, unspecified; K21.9 Gastro-esophageal reflux disease without esophagitis; E11.22 Type 2 diabetes mellitus with diabetic chronic kidney disease; E11.51 Type 2 diabetes mellitus with diabetic peripheral angiopathy without gangrene; J44.9 Chronic obstructive pulmonary disease, unspecified; K29.70 Gastritis, unspecified, without bleeding; E86.0 Dehydration; Z20.828 Contact with and (suspected) exposure to other viral communicable diseases; N18.2 Chronic kidney disease, stage 2 (mild); E87.6 Hypokalemia; E83.51 Hypocalcemia; E83.42 Hypomagnesemia; D64.9 Anemia, unspecified; Z99.81 Dependence on supplemental oxygen; Z89.512 Acquired absence of left leg below knee; Z88.2 Allergy status to sulfonamides; Z88.6 Allergy status to analgesic agent; Z88.1 Allergy status to other antibiotic agents; Z91.041 Radiographic dye allergy status; Z91.012 Allergy to eggs; Z91.02 Food additives allergy status
CPT/HCPCS: 10040

== ENCOUNTER 2020-02-11 21:25 | Inpatient (IN) | payer OTHER ==
[~2020-02-11] VITALS: Ht 165.1 cm; Wt 57.2 kg
--- NOTE | ~2020-02-11 | EMS ---
[address] [address] EMS Patient Care Report Name: ROBERT BOYD Room #: REG KOFFI Arroyo#: [id number] Admission: 02/11/20 Attend Phys: Discharge: Date of : 63 Report #: [id number] THIS REPORT FOR: //name// Report Transmitted: 02/11/2020 21:33 EMS Care Summary [facility] MED-ACT Incident [id number] @ 02/11/2020 20:42 Incident Location [address] [place] [address] Patient ROBERT BOYD Female, 54 Years 1965 Patient Address [address] [place] [address] Patient History Epilepsy,Chronic Kidney Disease,Type 2 Diabetes, Patient Allergies Doxycycline,Erythromycin,Diphenhydramine,Fentanyl,Azithromycin,Amoxicillin,Cital opram, Patient Medications Humalog, Buspirone, Lantus, Furosemide, Clonazepam, Albuterol, Amlodipine, Guaifenesin, Loratadine, Clotrimazole, Chief Complaint Pneumonia Disposition Transported No Lights/[place] Reason Breathing Problem Transported To [address] [address] EMS Patient Care Report Name: ROBERT BOYD Room #: REG KOFFI Arroyo#: [id number] Admission: 02/11/20 Attend Phys: Discharge: Date of : 63 Report #: [id number] Narrative [id number] arrived to find a 54yo female sitting on the edge of her bed talking to the fire crew. Pt was alert and oriented. Nursing staff reported that pt had a chest x ray done today and it came back showing pneumonia. Pt's doctor was wanting her to go to the hospital to have a COVID test and other labs done. Pt reports that she has been having a wet cough with yellow mucus coming up, ear pain, head pressure, and chest pain when coughing. Pt states that all of her symptoms started 3 days ago. Starting today pt also reports that she started having chills. Pt was on a NC at 6L and states that she is normally on oxygen. She was moved down to 4L when transferred to the cot. Pt was moved over to the cot and out to the ambulance. Once in the ambulance pt was placed on the monitoring manager where vital signs were monitored en route. Initial Vitals @21:11P: 87,R: 19,BP: 164/86,SpO2: 97, @21:08P: 86,R: 18,BP: 150/74,SpO2: 97, @21:07P: 87,R: 20,Pain: 4/10,GCS: 15,Temp: 99.9F,SpO2: 96, Assessments @21:19MENTAL:Person Oriented,Time Oriented,Event Oriented,Place Oriented,SKIN:HEENT:Head/Face: No Abnormalities,Eyes: No Abnormalities,Neck/Airway: No Abnormalities,LUNG SOUNDS:ABDOMEN:PELVIS//GI:EXTREMITIES:PULSE:NEURO:No Abnormalities, Impression Pneumonia Procedures @PTASurgical Mask on PatientResponse: Unchanged@20:54ALS AssessmentResponse: Unchanged@PTAOxygen FlowRate: 4 Device: Nasal Cannula (NC) Response: ImprovedSucceeded Timeline CARD PLAYER,Surgical Mask on Patient,Response: Unchanged CARD PLAYER,Oxygen FlowRate: 4 Device: Nasal Cannula (NC) Response: ImprovedSucceeded, 20:40,Call Received 20:40,Psap Call 20:42,Dispatched 20:43,En Route 20:49,On Scene 20:53,At Patient 20:54,ALS Assessment,Response: Unchanged 21:04,Depart Scene 21:07,BP: / M,PULSE: 87,RR: 20 R,SPO2: 96 Ox,ETCO2: ,BG: ,PAIN: 4,GCS: 15, 21:08,BP: 150/74 M,PULSE: 86,RR: 18 R,SPO2: 97 Ox,ETCO2: ,BG: ,PAIN: ,GCS: , 21:11,BP: 164/86 M,PULSE: 87,RR: 19 R,SPO2: 97 Ox,ETCO2: ,BG: ,PAIN: ,GCS: , [facility] [address] [place] [address] EMS Patient Care Report Name: ROBERT BOYD Room #: REG M.R.#: [id number] Admission: 02/11/20 Attend Phys: Discharge: Date of : 63 Report #: [id number] 21:15,At Destination 21:20,Transfer Patient 21:34,Call Closed Disclaimer v1.1 Copyright 2020 [employer] This EMS Care Summary contains data elements from the applicable legal record (which may be displayed differently). It is designed to provide pertinent information for the following purposes: continuity of care, clinical quality, and state data reporting. The complete legal record is available to ED staff and administrators of the receiving hospital in [employer] Patient Tracker. All data is provided "as is."
[~2020-02-11 21:25] MED LIST changes: +AMLODIPINE BESY10 MG PO; +CALTRATE-600 W1 EACH PO; +FLOMAX0.4 MG PO; +FLUCONAZOLE 10100 MG PO; +GLUCOPHAGE XR750 M1 PO; +LANTUS SOL100 UNIT/1 SUBQ; +PROAIR RESPICL90 MCG INH; +SODIUM BICARBO650 M3 PO; +TYLENOL325 M1 PO
[2020-02-11 21:32] VITALS: BP 159/76
[2020-02-11 21:57] LABS: ABSOLUTE NEUTROPHILS 3.3 thou/uL (1.4-8.2); BASOPHILS 1.5 % (0.0-2.0); EOSINOPHILS 2.4 % (0.0-3.0); HEMATOCRIT 27.4 % (37.0-47.0); HEMOGLOBIN 8.7 gm/dL (12.0-15.0); LYMPHOCYTES 19.3 % (24.0-44.0); MCH 28.3 pg (26.0-34.0); MCHC 31.7 g/dL (28.0-37.0); MCV 89.4 fL (80.0-100.0); MONOCYTES 7.5 % (1.0-8.0); PLATELET COUNT 201 thou/uL (150-400); POLYS 69.3 % (36.0-66.0); RBC 3.06 mil/uL (4.20-5.00); RDW 17.9 % (10.5-14.5); WBC 4.8 thou/uL (4.0-11.0)
[2020-02-11 22:02] LABS: ANION GAP 13 mmol/L (7-16); BUN 49 mg/dL (7-18); CALCIUM 8.4 mg/dL (8.5-10.1); CHLORIDE 109 mmol/L (98-107); CO2 17 mmol/L (21-32); CREATININE 1.8 mg/dL (0.6-1.0); GLUCOSE 342 mg/dL (74-106); POTASSIUM 4.2 mmol/L (3.5-5.1); SODIUM 139 mmol/L (136-145)
[2020-02-11 22:12] LABS: SGOT 9 U/L (15-37); SGPT 13 U/L (30-65); TOTAL BILIRUBIN 0.3 mg/dL (0.2-1.0); TOTAL PROTEIN 6.6 g/dL (6.4-8.2); TROPONIN-I <0.06 ng/mL (<0.06)
[2020-02-11 22:19] LABS: ANISOCYTOSIS 1+; POLYCHROMASIA OCCASIONAL
[2020-02-11 23:05] LABS: BE(vivo) -9.3 mmol/L (-2 to +3); HCO3 16.6 mmol/L (22.0-26.0); sO2 96.4 % (92.0-98.0)
[2020-02-11 23:07] LABS: pH 7.282 (7.360-7.450)
[2020-02-12 00:28] VITALS: BP 159/76
[2020-02-12 01:20] VITALS: BP 159/76
[2020-02-12 01:30] VITALS: BP 130/68
[2020-02-12] MEDS ORDERED: NORVASC 2.5 MG2.5 M1 PO (02:34)
[2020-02-12] MEDS ORDERED: BENTYL 10 MG CA10 MG PO (02:39)
[2020-02-12] MEDS ORDERED: FUROSEMIDE 40 M40 M1 PO (02:47)
[2020-02-12] MEDS ORDERED: HUMULIN R500 UNIT/1 SQ (02:51)
[2020-02-12] MEDS ORDERED: HYDROCODON-ACE1 EAC7 PO (02:53)
[2020-02-12] MEDS ORDERED: JANUVIA25 MG PO (02:55)
[2020-02-12] MEDS ORDERED: MIRTAZAPINE7.5 MG PO (03:02)
[2020-02-12] MEDS ORDERED: OLANZAPINE10 M1 PO (03:04)
[2020-02-12] MEDS ORDERED: PROTONIX40 M2 PO (03:05)
[2020-02-12] MEDS ORDERED: GABAPENTIN100 MG PO ×2 (05:55)
[2020-02-12 07:34] VITALS: BP 174/91
--- NOTE | 2020-02-12 08:06 | NUR ---
ASSUMED CARE OF PT AT 1900HRS. PT AOX4 AND LETS NEEDS BE KNOWN. FALL PRECAUTION IN PLACE. PT WAS ORIENTED TO THE UNIT AND HER ROOM. PT WAS ABLE TO ANSWER ALL ADMISSION RELATED QUESTIONS. ORDERS RECEIVED AND STARTED. PT PUT ON EXTERNAL FEMALE CATH. O2 VIA NC CONTINUED AT 4L VIA NC. PT WAS ABLE TO GET COMFORTABLE AND SLEEP PART OF THE SHIFT. VSS AND NO S/S OF ACUTE DISTRESS. REPORT GIVEN TO AM RN.
--- NOTE | 2020-02-12 10:08 | NUR ---
INFLUENZA A&B SWAB SENT TO LAB.
[2020-02-12 13:08] LABS: CALCIUM 8.1 mg/dL (8.5-10.1); CREATININE 1.7 mg/dL (0.6-1.0); POTASSIUM 5.1 mmol/L (3.5-5.1)
[2020-02-12 14:17] VITALS: BP 145/73
--- NOTE | 2020-02-12 17:38 | NUR ---
COVID 19 TEST DONE LEFT NARE TAKEN TO LAB AT THIS TIME
[2020-02-12 20:01] VITALS: BP 146/71
--- NOTE | 2020-02-13 02:39 | NUR ---
PT CARE ASSUMED WITH PT IN BED.PT IS A/O X4.PT HAS A LT BKA.PT VERY UPSET BECAUSED DOOR WAS CLOSED WHILE WAITING COVID RESULT.STAFF AND CN EXPLAINED TO PT .TEST CAME BACK NEGATIVE AND DOOR OPENED.PT WANTS TO CHANGE HOSPITALIST AND ALSO DIET FROM MECHANICAL ALTERED TO REGULAR DIET.PT IS ON O2 4L PER NC.PT IS ALSO ON BREATHING TREATMENT.PT IS ACCUCHECKS ACHS .WILL CONTINUE TO MONITOR PER POC
[2020-02-13 04:43] LABS: CREATININE 1.6 mg/dL (0.6-1.0)
[2020-02-13 04:52] LABS: HEMATOCRIT 26.7 % (37.0-47.0); HEMOGLOBIN 8.5 gm/dL (12.0-15.0); MCH 28.5 pg (26.0-34.0); MCHC 31.8 g/dL (28.0-37.0); MCV 89.6 fL (80.0-100.0); RBC 2.98 mil/uL (4.20-5.00); RDW 17.6 % (10.5-14.5); WBC 5.1 thou/uL (4.0-11.0)
[2020-02-13 05:36] LABS: GLYCOHEMOGLOBIN (HGB A1C) 7.1 % (4.8-5.6)
[2020-02-13 08:31] VITALS: BP 172/87
--- NOTE | 2020-02-13 11:14 | HC ---
[facility] [place] [address] CONSULTATION Name: ROBERT BOYD Room #: 463-P ADM IN M.R.#: [id number] Admission: 02/11/20 Attend Phys: Deacon Apple MD Discharge: Date of : 63 Report #: [id number] THIS REPORT FOR: cc: Fidel Bernstein MD, Shyam MD Al-Mubaslat, Ahmad MD ~ DATE OF SERVICE: 02/12/2020 ENDOCRINE CONSULTATION NOTE CONSULTING PHYSICIAN: Dr. Ferris. REASON FOR CONSULTATION: Type 2 diabetes mellitus. HISTORY OF PRESENT ILLNESS: This is a 54-year-old female patient who has a fairly complex medical background is noted for type 2 diabetes mellitus, COPD, congestive heart failure, hypertension, hypothyroidism as well as several other issues. The patient has been known to have type 2 diabetes mellitus for many years and was actually consulted in August of this year for the same issue. At that time, the patient has had a significant issue of recurrent severe hypoglycemia and exhibited a high sensitivity to small insulin changes. At that time, she had ended up being maintained on Lantus insulin 12 units daily as well as Tradjenta 5 mg daily in addition to a low intensity modified conservative Human R insulin regimen. The patient had added complexity of being allergic to several insulin analogs including NovoLog and Humalog. Most recently, she has been maintained on the same combination of Lantus insulin and Tradjenta as well as Human R insulin scale at her long-term care facility. She vaguely describes what sounded like a frequently fluctuating insulin intake and frequent adjustments of her Human R insulin intake. She describes the occurrence of severe hypoglycemia with the last memorable incident being about 2 months ago. She was not able to specify fair most recent blood glucose values. The patient is known to have a left BKA as a result of peripheral vascular disease as well as chronic renal insufficiency, mostly stage 3. The patient is also known to have hypothyroidism and is maintained on levothyroxine 50 mcg daily. The patient presented to the ER yesterday with complaints of productive cough, shortness of breath and chills that have involved for a few days. Importantly, the patient received one to two COVID-19 tests at our long-term care facility and has been negative thus far. REVIEW OF SYSTEMS: CONSTITUTIONAL: Fatigue, tiredness, but not weight changes. [address] [address] CONSULTATION Name: ROBERT BOYD Room #: 463-P [facility] IN M.R.#: [id number] Admission: 02/11/20 Attend Phys: Deacon Apple MD Discharge: Date of : 63 Report #: [id number] HEENT: Negative for sore throat, ear pain, but she has had nasal soreness with the repeated COVID-19 testing. PULMONARY: Shortness of breath, productive cough, but no hemoptysis. CARDIAC: Occasional palpitations, lower extremity swelling, dyspnea on exertion, but no chest pain. GASTROINTESTINAL: Occasional abdominal discomfort and nausea, but no vomiting. NEUROLOGY: Negative for loss of consciousness, seizure activity. Otherwise, review of systems noncontributory other than those mentioned in HPI. PAST MEDICAL HISTORY: 1. Type 2 diabetes mellitus. 2. Chronic kidney disease, stage 3. 3. Hypothyroidism. 4. Chronic obstructive pulmonary disease, on chronic oxygen therapy. 5. Generalized anxiety disorder. 6. Congestive heart failure. 7. Osteoarthritis. 8. Peripheral vascular disease, status post left [id number] amputation. 9. GERD. 10. Anemia. 11. Atelectasis. OUTPATIENT MEDICATIONS: Include: 1. Voltaren gel. 2. Amlodipine 10 mg daily. 3. Caltrate 600 mg with vitamin D t.i.d. 4. Flomax 0.4 mg daily. 5. Pulmicort 2 puffs b.i.d. 6. Clonazepam 0.5 mg t.i.d. 7. Ferrous sulfate daily. 8. Loratadine 10 mg daily. 9. Lomotil p.r.n. 10. Protonix 40 mg daily. 11. Buspirone 10 mg b.i.d. 12. Levothyroxine 50 mcg daily. 13. Tradjenta 5 mg daily. ALLERGIES: The patient has an extensive list of allergies including EGGS, HUMALOG, CHEESE, CHICKEN, OXYCODONE, TRIMETHOPRIM, AMOXICILLIN, AZITHROMYCIN, CIPROFLOXACIN, DIPHENHYDRAMINE, DOXYCYCLINE, FENTANYL, GARLIC, IODINATED CONTRAST MEDIA, LEVOFLOXACIN, MEPERIDINE, METOCLOPRAMIDE, MORPHINE, ONDANSETRON, PAROXETINE, PREDNISONE, PROMETHAZINE, SERTRALINE, SULFA, TOMATO, ERYTHROMYCIN, NOVOLOG. FAMILY HISTORY: Noted for ovarian cancer. [facility] [address] [facility] [place] [address] CONSULTATION Name: ROBERT BOYD Room #: 3[facility] IN M.R.#: [id number] Admission: 02/11/20 Attend Phys: Deacon Apple MD Discharge: Date of : 63 Report #: [id number] SOCIAL HISTORY: Ex-smoker, quit about a year ago. No alcohol use. Resides at a long-term care facility. PHYSICAL EXAMINATION: GENERAL: Cachectic female patient who is not in apparent pain or distress. VITAL SIGNS: Blood pressure is 174/91, heart rate is 90, respiratory rate is 16, temperature of 36.4 degrees Celsius. CONSTITUTIONAL: The patient is sitting upright in bed, appears relatively comfortable, not in apparent distress. HEENT: Anicteric sclerae. Intact ocular motions. NECK: Supple, no JVD, no thyromegaly. CHEST: Noted for limited air entry bilaterally with scattered rales and few wheezes, but no crackles. HEART: Regular rate and rhythm without murmurs. ABDOMEN: Soft, lax. No guarding. Active bowel sounds. EXTREMITIES: Lower extremity exam is noted for left BKA. NEUROLOGIC: Awake, alert and oriented to time, place and person. The remainder of her examination is largely nonfocal. PSYCHIATRIC: Interactive. Normal mood and affect. LABORATORY DATA: Laboratory results: Sodium 139, potassium 4.2, chloride 109, CO2 of 17, anion gap 13, BUN 49, creatinine 1.8, baseline typically is between 1.0 and 1.4. Glucose on arrival was 342. This is the only value today during this hospital stay, AST 9, lipase 61, total bilirubin 0.3, calcium 8.4, magnesium 1.8, alkaline phosphatase 173, ALT 13, albumin 2.0. EGFR 29. Lactic acid 0.4. Total CPK 34. BNP 5034. Troponin is negative. White blood count 4.8, hemoglobin 8.7, hematocrit 27.4, platelets 201. TSH was 1.47 in 06/2019. Hemoglobin A1c was 9.7 in 06/2019. ASSESSMENT AND PLAN: 1. Type 2 diabetes mellitus. As noted above, the patient has had longstanding issues with type 2 diabetes mellitus with the added complexity of allergies to several quinones insulin analogs including Humalog and NovoLog, which limits her use to that of Human R insulin for a fast-acting insulin coverage. Also, of note is that the patient has had a significant hypoglycemia issues in the past, which necessitated multiple adjustments. That said, would like to be on the cautious side and drop her Lantus insulin dose from the current 20 units daily to 14 units daily, resume coverage with linagliptin and maintain conservative approach with her Human R insulin where she receives insulin only if her blood glucose is over 200 mg/dL. Of note is that she is currently receiving Solu-Medrol at 40 mg b.i.d., which could quite potentially increase her insulin needs. We will maintain blood glucose monitoring a.c. and at bedtime and adjust her insulin intake accordingly. [address] [address] CONSULTATION Name: ROBERT BOYD Room #: 463-P [facility] IN .R.#: [id number] Admission: 02/11/20 Attend Phys: Deacon Apple MD Discharge: Date of : 63 Report #: [id number] I will obtain a hemoglobin A1c to update her status. 2. Hypothyroidism. The patient is maintained on levothyroxine 50 mcg daily. She appears to be clinically euthyroid. I will obtain TSH and free T4 levels to ensure this outlook and adjust her regimen as needed. In the meantime, I will resume levothyroxine 50 mcg daily. 3. Hypertension. The patient's level of blood pressure control has been marginal. I will defer to the primary hospital team and further adjustments in this regard. I have reviewed the patient's clinical care notes, laboratory data, and other pertinent information for over 35 minutes in addition to my encounter time with her. I certainly appreciate this consultation by Dr. Ferris. <ELECTRONICALLY SIGNED> By: Brenda Wren MD 02/13/20 1114 1022 [id number] Brenda Wren MD /nt
[2020-02-13 16:52] VITALS: BP 142/81
--- NOTE | 2020-02-13 19:17 | NUR ---
PT A&OX4, VSS, DENIES PAIN, N/V/D. PATIENT FUSSY TODAY. PATIENT WANTED REGULAR DIET, SODA AND COFFEEL. PATIENT EDUCATED BY DOCTOR ON DIET. PATIENT TO DO EXERCISE OXIMETRY UNABLE TO COMPLETE. PATIENT STATES SHE HAS A NEW PROSTHESIS THAT SHE DOESNT KNOW HOW TO USE. DOCTOR NOTIFIED. NO SIGNS OF DISTRESS. WILL CONTINUE TO MONITOR.
[2020-02-13 19:35] VITALS: BP 159/81
--- NOTE | 2020-02-14 07:36 | NUR ---
Assumed pt care at 1900. A/OX4,very fussy/irritable at the beginning of the shift but calm down and pleasant. Stool for cdiff obtained;placed on special contact isolation. Pt had more diarrhea this morning, c/o abd cramping and tearful. Arlen notified,n.o for Bentyl,Imodium X1 and Klonopin meds administered w/o any problems voiced later. Fall precautions in place,calls approp for help.
--- NOTE | 2020-02-14 15:55 | NUR ---
PT ADMITTED RELATED TO CAP, COPD, 02 DEPENDNET. CM REVIEWED CHART AND SPOKE WITH CARE TEAM. PT IS LTC PT AT OP CENTER. SHE HAS A PROSTHESIS AND IS WC BOUND AT FACILITY. PT IS ON 4L O2 [place]. IT IS ANTICIPATED THAT PT WILL LIKELY RETURN TO OP CENTER ONCE MEDICALLY STABLE. CLINICAL UPDATE SENT TO OP CENTER. PT SEEN BY PT AND OT THIS DAY. RT CONSULTED FOR O2 TESTING. [place] PLAN WOULD BE THAT PT WILL RETURN TO OP CENTER LTC ONCE MEDICALLY STABLE. CM TO FOLLOW INDICATED WITH DC PLANNING.
[2020-02-14 16:56] VITALS: BP 164/87
--- NOTE | 2020-02-14 20:06 | NUR ---
ASSUMED CARE AT 0700. ASSESSMENTS PER CHART. PT HAD TWO LARGE LOOSE BM'S TODAY. CDIFF NEGATIVE. STARTED BACK ON LOPERIMIDE THIS AFTERNOON PER REQUEST. C/O GENERALIZED ABD PAIN. WALKED WITH THERAPY AND RT THIS AFTERNOON AND TOLERATED WELL ALTOUGH ASSIST X 2. PT ON 4L NC AT BASELINE BUT WAS ABLE TO MAINTAIN O2 SAT IN 90'S ON 2L ALSO. UPDATED ON POC. PORGRESSING TOWARDS POC GOALS.
[2020-02-14 20:41] VITALS: BP 156/41
--- NOTE | 2020-02-14 23:51 | NUR ---
Assumed pt care at 1900. A/OX4,drowsy. VSS. Pt's blood sugar 402,Arlen PLANT PROTECTION SUPERVISOR notified N.o for Humulin R 15units given and administered. Also ordered Lantus 5units at HS but declined taking it stating the blood sugar will go down eventually. Resting quietly eyes closed w/o any distress noted. Female external catheter in place, fall precautions in place.
[2020-02-15 08:10] VITALS: BP 147/59
[2020-02-15] MEDS ORDERED: PREDNISONE 20 M20 M1 PO (14:09)
[2020-02-15] MEDS ORDERED: MUCINEX DM ER1 EAC1 PO (14:09)
[2020-02-15] MEDS ORDERED: CEFUROXIME500 MG PO (14:09)
[2020-02-15] MEDS ORDERED: LANTUS SOL100 UNIT/1 SUBQ (14:10)
--- NOTE | 2020-02-15 15:22 | NUR ---
CARE TEAM INDICATED THAT PT IS MEDICALLY STABLE TO DC BACK TO OP CENTER LTC THIS DAY. O2 TESTING DONE AND PT NEEDS 2L WITH ACTIVITY. PT IS ARGUMENTATIVE WITH CARE TEAM RECARDING HER O2 NEEDS. AWAITING TIME OF TRANSPORT FROM FACILITY. PT IS AWARE AND AGREEABLE WITH DC TO OP CENTER THIS DAY. CHART COPY ORDERED. ORDERS FAXED. NURSE HAD NUMBER FOR REPORT. NO OTHER CM INTERVENTION INDICATED. CASE CLOSED.
[2020-02-15 16:20] VITALS: BP 134/62
--- NOTE | 2020-02-15 19:43 | NUR ---
Received awake on bed. Due medications given as prescribed, able to swallow meds w/o difficulty. On O2 at 2lpm via nasal cannula-saturating at 99% pt insisting to raise it to 5lpm via nasal cannula- RN, RT explained to her that we are unable to do it due to her COPD and she is saturating fine- pt got upset, agitated, refusing meds and care wanting to talk to physician, pt advocate and household cook- all were informed re: pt's request and behavior. On MS, not on telemetry; no complains and signs of chest pain, crushing sensation and heaviness. On mechanically altered diet- tolerating well; assisted in eating and drinking; no nausea, no vomiting and no abdominal pain. Falls bundle in place. On blood sugar monitoring, taken and recorded accordingly; with sliding scale insulin ordered. With external jurado in place, output measured and recorded; with episodes of incontinence; checked regularly and changed as needed. With SL at L hand, on IV antibiotics. With L BKA- healed stump; with prosthesis at bedside. Pt seen and examined by Dr Lazaro, discharge orders made; pt upset and refusing to be discharge- physician informed and talked to the patient. CM set up referrals and transport set up at [phone]. Discharge instructions, follow up schedule given and instructed. IV discontinued. Transport fetched patient, chart copy given. Patient brought out of the unit via stretcher with her personal belongings. Tried to call [facility] ER [phone], 182, 183, no one picking up the phone and line not working. Patient discharged.
--- NOTE | 2020-02-16 08:06 | HC ---
[facility] [place] [address] CONSULTATION Name: ROBERT BOYD Room #: 463-P [facility] IN M.R.#: [id number] Admission: 02/11/20 Attend Phys: Edie Ferris MD Discharge: 02/15/20 Date of : 63 Report #: [id number] THIS REPORT FOR: cc: Fidel Bernstein MD, Shyam MD McElhinney, Christian C. MD ~ DATE OF SERVICE: 02/13/2020 HISTORY OF PRESENT ILLNESS: The patient is a 54-year-old female with a long history of COPD, O2 dependent, who was admitted for increasing shortness of breath. Chest x-ray showing consolidation in the middle, right lung base, suggesting pneumonia. She is on antibiotics at this time. Reason for GI consultation is chronic diarrhea. The patient lives at a nursing facility and stated she has been having chronic loose stools for at least a month. She states they started giving her Imodium after each meal and bowel movement and at first, this was not helpful; however, recently has been helpful, in fact, she has not had a bowel movement in 6 days and would like a laxative at this time in order to have a bowel movement. She does feel abdominal bloating, denies any significant abdominal pain. She denies any blood in her stools. She states her last colonoscopy was a year ago at [facility]. I do not have a copy of these results. No family history of colon cancer. She also states she has a history of irritable bowel syndrome and the medication that she has used in the past for diarrhea was not helpful, which was the reason they tried Imodium at the halfway. COVID testing here has been negative. She denies any fevers or chills. No chest pain currently. She has mild shortness of breath, no sputum production. PAST MEDICAL HISTORY: O2 dependent COPD, hypertension, anxiety, congestive heart failure, diabetes type 2, hypoglycemia, osteoarthritis, hypothyroidism, peripheral vascular disease, PTSD, history of pneumonia, gastroesophageal reflux disease, possible history of irritable bowel syndrome, diarrhea dependent, chronic renal disease, anemia, history of pleural effusions, generalized anxiety disorder, previous history of tubal ligation, hernia repair, left BKA. ALLERGIES: MULTIPLE, PLEASE SEE THE CHART. SOCIAL HISTORY: Long history of smoking. She denies any alcohol use at this time. FAMILY HISTORY: Negative for colon cancer. CURRENT MEDICATIONS: Synthroid, cefepime, insulin, methylprednisolone or Solu-Medrol, vancomycin, Tradjenta, Protonix 40 mg every day, budesonide, albuterol, Atrovent, guaifenesin, Zofran p.r.n., [place] [address] CONSULTATION Name: ROBERT BOYD Room #: 463-P DIS IN M.R.#: [id number] Admission: 02/11/20 Attend Phys: Edie Ferris MD Discharge: 02/15/20 Date of : 63 Report #: [id number] PHYSICAL EXAMINATION: VITAL SIGNS: Temperature is 36.7, pulse 88, blood pressure 172/87, respiratory rate is 19. She is on 4 liters of nasal cannula oxygen. GENERAL: She is alert and oriented x 3, in no acute distress. HEENT: Sclerae nonicteric. Oropharynx clear. NECK: Supple, without lymphadenopathy. CARDIOVASCULAR: Regular rate. CHEST: With decreased breath sounds bilaterally. ABDOMEN: Soft, mildly obese, nontender, mildly distended. Positive bowel sounds. EXTREMITIES: No cyanosis, clubbing or edema. Surgical changes of left BKA noted. LABORATORY DATA: WBC is 5.1, hemoglobin 8.5, MCV 89.6, platelet count is 226. Sodium 138, potassium 5.0, chloride 109, bicarbonate 17, BUN 47, creatinine is 1.6, glucose 318. Magnesium 1.8. Iron 13, TIBC 160. Total bilirubin 0.3, AST 9, ALT 13, alkaline phosphatase 173, albumin 2.0. ASSESSMENT AND PLAN: 1. History of chronic diarrhea, etiology is unclear. The patient reportedly has a history of irritable bowel syndrome, possible diarrhea dependent. It appears she was on Bentyl or Levsin for this without improvement at the halfway. In the halfway, they were giving her scheduled doses of Imodium, which eventually caused her to be constipated recently. She now states she has not had a bowel movement for 6 days and would like a laxative. Plan is to give her a suppository at this time, hold any Imodium or other medications and then observe. If the patient begins having diarrhea again, may need to consider different dosing of Imodium or other options. We will also like to review colonoscopy reports that was done just a year ago at [facility]. 2. Gastroesophageal reflux disease. No recent complaints of heartburn or dysphagia. Continue PPI therapy. Thank you for allowing me to participate in her care. <ELECTRONICALLY SIGNED> By: Joseph Stokes MD 02/16/20 0806 1421 1662 Joseph Stokes MD /nt
--- NOTE | 2020-02-17 11:23 | EKG ---
[facility] [address] [place] [address] ELECTROCARDIOGRAM REPORT Name: ROBERT BOYD Room #: 463-P [facility] IN M.R.#: [id number] Admission: 02/11/20 Attend Phys: Edie Ferris MD Discharge: 02/15/20 Date of : 63 Report #: [id number] <ELECTRONICALLY SIGNED> By: Tom Ricardo MD, FACC 02/14/20 0719 13 Tom Ricardo MD, FACC /EPI
== END 2020-02-15 18:12 | DRG 871 ==
LOC: ER 21:25 → 4W 23:45 → EROBS 23:45 → 4W 02-12 01:06
PROVIDERS: Emergency Medicine; Internal Medicine; Internal Medicine Pulmonary Disease; Nurse Practitioner Family; ADMIT Hospitalist; ATTEND Hospitalist
DX: A41.9 Sepsis, unspecified organism (principal); J18.9 Pneumonia, unspecified organism; J96.21 Acute and chronic respiratory failure with hypoxia; J44.0 Chronic obstructive pulmonary disease with (acute) lower respiratory infection; N17.9 Acute kidney failure, unspecified; F11.20 Opioid dependence, uncomplicated; J44.1 Chronic obstructive pulmonary disease with (acute) exacerbation; G89.4 Chronic pain syndrome; E03.9 Hypothyroidism, unspecified; I50.9 Heart failure, unspecified; F41.9 Anxiety disorder, unspecified; E11.22 Type 2 diabetes mellitus with diabetic chronic kidney disease; F41.1 Generalized anxiety disorder; F32.9 Major depressive disorder, single episode, unspecified; N18.30 Chronic kidney disease, stage 3 unspecified; K52.9 Noninfective gastroenteritis and colitis, unspecified; K59.00 Constipation, unspecified; D63.8 Anemia in other chronic diseases classified elsewhere; Z20.828 Contact with and (suspected) exposure to other viral communicable diseases; K21.9 Gastro-esophageal reflux disease without esophagitis; E11.51 Type 2 diabetes mellitus with diabetic peripheral angiopathy without gangrene; Z88.8 Allergy status to other drugs, medicaments and biological substances; Z89.512 Acquired absence of left leg below knee; Z88.6 Allergy status to analgesic agent; Z88.1 Allergy status to other antibiotic agents; Z91.041 Radiographic dye allergy status; Z91.012 Allergy to eggs; Z91.02 Food additives allergy status; Z87.891 Personal history of nicotine dependence; Z99.81 Dependence on supplemental oxygen; Z79.899 Other long term (current) drug therapy
CPT/HCPCS: 10040

== ENCOUNTER 2020-05-17 07:59 | Inpatient (IN) | payer OTHER ==
[2020-05-17] VITALS (30 sets, daily range): BP systolic 82–149; BP diastolic 36–62
[~2020-05-17] VITALS: Ht 162.6 cm; Wt 65.6 kg
[~2020-05-17 07:59] MED LIST changes: +CEFUROXIME500 MG PO; +FUROSEMIDE 40 M40 M1 PO; +GABAPENTIN100 MG PO; +HUMULIN R500 UNIT/1 SQ; +HYDROCODON-ACE1 EAC7 PO; +JANUVIA25 MG PO; +MIRTAZAPINE7.5 MG PO; +MUCINEX DM ER1 EAC1 PO; +NORVASC 2.5 MG2.5 M1 PO; +OLANZAPINE10 M1 PO; +PREDNISONE 20 M20 M1 PO
[2020-05-17 08:29] LABS: HEMATOCRIT 26.2 % (37.0-47.0); HEMOGLOBIN 7.7 gm/dL (12.0-15.0); MCH 28.8 pg (26.0-34.0); MCHC 29.4 g/dL (28.0-37.0); RBC 2.68 mil/uL (4.20-5.00); RDW 17.5 % (10.5-14.5); WBC 13.5 thou/uL (4.0-11.0)
[2020-05-17 08:31] LABS: BE(vivo) -31.5 mmol/L (-2 to +3); HCO3 2.7 mmol/L (22.0-26.0); PO2 80.2 mmHg (80.0-100.0); sO2 75.8 % (92.0-98.0)
[2020-05-17 08:32] LABS: PCO2 22.1 mmHg (35.0-45.0); pH 6.698 (7.360-7.450)
[2020-05-17 09:03] LABS: URINE BILIRUBIN NEGATIVE (Negative); URINE BLOOD 2+ (Negative); URINE CLARITY CLEAR; URINE COLOR YELLOW; URINE GLUCOSE-RANDOM* NEGATIVE (Negative); URINE KETONES TRACE (Negative); URINE NITRITE-REFLEX NEGATIVE (Negative); URINE PROTEIN (DIPSTICK) 3+ (Negative); URINE UROBILINOGEN 0.2 E.U./dl (0.2-1.0)
[2020-05-17 09:03] LABS: ANION GAP 22 mmol/L (7-16); BUN 112 mg/dL (7-18); CALCIUM 8.3 mg/dL (8.5-10.1); CHLORIDE 110 mmol/L (98-107); CREATININE 4.7 mg/dL (0.6-1.0); DIRECT BILIRUBIN < 0.1 mg/dL (<0.1-0.2); GLUCOSE 250 mg/dL (74-106); SGOT 225 U/L (15-37); SGPT 81 U/L (30-65); SODIUM 137 mmol/L (136-145); TOTAL BILIRUBIN 0.4 mg/dL (0.2-1.0); TOTAL PROTEIN 6.6 g/dL (6.4-8.2)
[2020-05-17 09:05] LABS: CO2 < 5 mmol/L (21-32); POTASSIUM 6.4 mmol/L (3.5-5.1)
[2020-05-17 09:07] LABS: URINE LEUKOCYTES-REFLEX 3+ (Negative)
[2020-05-17 09:16] LABS: CASTS None Seen /LPF (None Seen); SQUAMOUS 0-3 Few /LPF (0-3); URINE RBC 3-10 Few /HPF (0-2); URINE WBC-REFLEX >25 Many /HPF (0-5)
[2020-05-17 09:17] LABS: BACTERIA-REFLEX 1-9 Few /HPF (None Seen); CRYSTALS None Seen /LPF (None Seen); WBC CLUMPS Packed (None Seen)
[2020-05-17 10:01] LABS: ANISOCYTOSIS 1+
[2020-05-17 10:03] LABS: PLATELET COUNT 143 thou/uL (150-400)
--- NOTE | 2020-05-17 10:04 | EKG ---
[place] [address] [facility] [place] [address] ELECTROCARDIOGRAM REPORT Name: ROBERT BOYD [id number] Admission: 05/17/20 Attend Phys: Discharge: Date of : 63 Report #: [id number] [facility] ED Test Date: 2020-05-17 Test Time: 07:59:58 Pat Name: ROBERT BOYD Department: Room: Gender: F Digital Photo Printer: LEVY : 1965 Requested By: Yaima Disla Order Number: [id number] MD: Tom Ricardo Measurements Intervals [place] Rate: 68 P: 83 VT: 160 QRS: 74 QRSD: 114 T: 71 QT: 463 QTc: 493 Interpretive Statements Sinus rhythm Borderline intraventricular conduction delay Borderline prolonged QT interval Baseline wander in lead(s) V6 Compared to ECG 02/11/2020 22:14:10 No significant changes Electronically Signed On 05-17-2020 10:04:16 CDT by Tom Ricardo [email or web address] <ELECTRONICALLY SIGNED> By: Tom Ricardo MD, [facility] 05/17/20 1004 [id number] Tom Ricardo MD, FACC /EPI
--- NOTE | 2020-05-17 10:44 | NUR ---
VAT CONSULTED FOR PICC PLACEMENT, PT VERY RESTLESS, UNABLE TO LIE STILL FOR IJ. DISCUSSED LABS WITH DR KHAN, MORE ACUTE. TL 5FR POWER PICC TRIMMED TO 42CM INSERTED TO 0CM. PT TOLERATED WELL. STAT CXR ORDERED.
--- NOTE | 2020-05-17 13:40 | NUR ---
PT ARRIVED TO THE ICU VIA RNX1 ESOCRT. PT ARRIVED WITH RESTRAINTS ON R/T IMPULSIVENESS/AMS. NS WAS RUNNING 100 BUT RN NOTED THAT HOLD ORDER WAS SO NS DC'D NOW. PT FLAGGED FOR SEPSIS PROTOCOL. WAS NOTIFIED, LPER DR. MEDINA REPEAT COVID SWAB, NO CVP INDICATED FOR NOW, NO REPEAT LABS AT THIS TIME R/T SEVERITY OF SEPSIS FOR PT. RN TO FOLLOW ORDERS, [facility]. PT'S TEMP COULD NOT BE READ SO WARM BLANKET WAS PLACED RN WILL RECHECK AT A LATER TIME.
[2020-05-17 13:46] LABS: APTT 58.2 Seconds (24.5-32.8); INR 1.3; PROTIME 14.4 Seconds (9.3-11.4); SALICYLATE < 2.8 mg/dL (2.8-20.0)
--- NOTE | 2020-05-17 22:33 | NUR ---
ASSUMED CARE AT 1900. UNABLE TO GET A TEMP READING ABOVE 92, PLACED ON BAREHUGGER. LUNGS VERY COARSE/CRACKLING IN ALL QUADS, PLACED PAGE TO RENAL AT 2100. DR. GARCIA CALLED BACK AT 2200, GAVE ONE TIME ORDER FOR 60 MG IVP LASIX; HE IS ALSO AWARE OF PT'S SCANT URINE OUTPUT AT THIS TIME. WILL CONTINUE TO MONITOR.
[2020-05-18] VITALS (83 sets, daily range): BP systolic 66–157; BP diastolic 41–65
[2020-05-18 02:40] LABS: AMP/METHAMP Negative (Negative); BARBITURATES Negative (Negative); BENZODIAZEPINES Negative (Negative); COCAINE Negative (Negative); METHADONE Negative (Negative); OPIATES POSITIVE (Negative); PCP Negative (Negative)
[2020-05-18 05:17] LABS: HEMATOCRIT 21.8 % (37.0-47.0); RBC 2.32 mil/uL (4.20-5.00)
[2020-05-18 05:18] LABS: HEMOGLOBIN 6.6 gm/dL (12.0-15.0); MCH 28.7 pg (26.0-34.0); MCHC 30.5 g/dL (28.0-37.0); MCV 94.1 fL (80.0-100.0); PLATELET COUNT 189 thou/uL (150-400); RDW 17.2 % (10.5-14.5); WBC 13.8 thou/uL (4.0-11.0)
[2020-05-18 05:34] LABS: CALCIUM 6.6 mg/dL (8.5-10.1)
[2020-05-18 05:36] LABS: POTASSIUM 4.8 mmol/L (3.5-5.1)
[2020-05-18 08:16] LABS: PHOSPHORUS 12.9 mg/dL (2.5-4.9)
[2020-05-18 10:02] LABS: ABSOLUTE NEUTROPHILS 12.3 thou/uL (1.4-8.2); ANISOCYTOSIS 1+; PLATELET ESTIMATE NORMAL
--- NOTE | 2020-05-18 13:11 | NUR ---
chart review. discussed during am rounds. use of bipap and o2 per nasal cannula. unable to visit with her. cm called son bacilio, no answer. cm left message with madisyn with [facility]. will cont following as needed for dc needs. need to know if she was skilled or ltc?
[2020-05-18 13:36] LABS: BE(vivo) -15.1 mmol/L (-2 to +3); HCO3 11.7 mmol/L (22.0-26.0); PCO2 31.1 mmHg (35.0-45.0); PO2 87.8 mmHg (80.0-100.0); sO2 94.7 % (92.0-98.0)
[2020-05-18 13:37] LABS: pH 7.194 (7.360-7.450)
[2020-05-19] VITALS (20 sets, daily range): BP systolic 111–159; BP diastolic 56–83
--- NOTE | 2020-05-19 00:47 | NUR ---
PATIENT REFUSING BIPAP AT THIS TIME. TOLERATING 6L NC. DR BURNHAM NOTIFIED. PER YVETTE BOLIVAR TO USE BIPAP PRN/ TOLERATED.
[2020-05-19 05:33] LABS: HEMATOCRIT 22.6 % (37.0-47.0); HEMOGLOBIN 7.5 gm/dL (12.0-15.0); MCH 29.6 pg (26.0-34.0); MCHC 33.4 g/dL (28.0-37.0); RBC 2.54 mil/uL (4.20-5.00); RDW 15.4 % (10.5-14.5); WBC 4.6 thou/uL (4.0-11.0)
[2020-05-19 05:41] LABS: MCV 88.7 fL (80.0-100.0)
[2020-05-19 05:41] LABS: BE(vivo) -10.8 mmol/L (-2 to +3); HCO3 14.9 mmol/L (22.0-26.0); PO2 65.3 mmHg (80.0-100.0); sO2 90.8 % (92.0-98.0)
[2020-05-19 05:43] LABS: pH 7.285 (7.360-7.450)
[2020-05-19 05:55] LABS: ALBUMIN 1.4 g/dL (3.4-5.0); CREATININE 5.3 mg/dL (0.6-1.0); PHOSPHORUS 11.2 mg/dL (2.5-4.9); POTASSIUM 3.4 mmol/L (3.5-5.1)
[2020-05-19 06:00] LABS: CALCIUM 5.8 mg/dL (8.5-10.1)
--- NOTE | 2020-05-19 06:20 | NUR ---
PATIENTS MENTAL STATUS HAS IMPORVED SIGNIFICATLY AND IS ALERT AND ORIENTED X3. PATIENT INTERMITTENTLY REFUSES BIPAP BUT IS ABLE TO TOLERATE 6L NC. CONTINUE PLAN OF CARE.
[2020-05-19 14:07] LABS: METHANOL < 0.010 g/dL (0.000-0.010)
--- NOTE | 2020-05-19 14:27 | NUR ---
chart review, cont to require bipap at hs and o2 6Lnc daytime. iv lasix. mech soft diet. no return call back from [facility]. no anticipated dc over the weekend. will cont following as needed for dc needs dcp: [facility].
--- NOTE | 2020-05-19 19:39 | NUR ---
PT WAS GIVEN POTASSIUM IVBP 40 MEQ, WAS ABLE TO RAISE POTASSIUM TO 3.9. PT HAS BEEN WANTING SODA FOR THE ENTIRETY OF THE SHIFT, PT ALSO DECLINED INSULIN FOR THE FIRST DOSE AND WANTED ONLY 6U FOR THE SECOND DOSE STATING THAT SHE WILL CRASH BOTH TIMES. PT WAS ALSO SEEN TO DESAT TO 89% WHILE ON 6L/NC. 4L/NC IS HER BASELINE. PT WAS PLACED BACK ON BIPAP TWICE THIS SHIFT AND REMAINS ON BIPAP AT THIS TIME
[2020-05-20] VITALS (17 sets, daily range): BP systolic 109–208; BP diastolic 71–85
[2020-05-20 05:00] LABS: HEMATOCRIT 21.4 % (37.0-47.0); HEMOGLOBIN 7.4 gm/dL (12.0-15.0); MCH 29.8 pg (26.0-34.0); MCHC 34.5 g/dL (28.0-37.0); MCV 86.4 fL (80.0-100.0); RBC 2.48 mil/uL (4.20-5.00); WBC 3.7 thou/uL (4.0-11.0)
[2020-05-20 05:35] LABS: CALCIUM 5.1 mg/dL (8.5-10.1); POTASSIUM 2.6 mmol/L (3.5-5.1)
[2020-05-20 12:26] LABS: ALBUMIN 1.5 g/dL (3.4-5.0); CALCIUM 6.1 mg/dL (8.5-10.1); CREATININE 4.6 mg/dL (0.6-1.0); PHOSPHORUS 9.1 mg/dL (2.6-4.7); POTASSIUM 3.6 mmol/L (3.5-5.1)
--- NOTE | 2020-05-20 18:45 | NUR ---
POTASSIUM REPLACED, NOW 3.6. DIET ORDERED, PREFERS CRACKERS AND BEEF BROTH. HAD 2 BROWN MUCUSY STOOLS TODAY. 9L/NC, COUGHING UP THICK BLOOD TINGED SPUTUM SEVERAL TIMES TODAY. SLOWLY PROGRESSING.
[2020-05-21] VITALS (17 sets, daily range): BP systolic 114–160; BP diastolic 62–87
--- NOTE | 2020-05-21 04:18 | NUR ---
THERE WAS A V60 IN THE ROOM AND THIS THERAPIST WENT BACK TWICE WHILE ROUNDING AND EACH TIME THE PATIENT STATED SHE DIDN'T WANT TO WEAR THE BIPAP. TIFFANY DON WAS NOTIFIED AND AWARE OF DECLINATION.
[2020-05-21 05:35] LABS: HEMATOCRIT 26.4 % (37.0-47.0); HEMOGLOBIN 8.7 gm/dL (12.0-15.0); MCH 29.2 pg (26.0-34.0); MCHC 32.8 g/dL (28.0-37.0); PLATELET COUNT 118 thou/uL (150-400); RBC 2.97 mil/uL (4.20-5.00); RDW 15.4 % (10.5-14.5); WBC 4.1 thou/uL (4.0-11.0)
[2020-05-21 05:52] LABS: ALBUMIN 1.5 g/dL (3.4-5.0); CALCIUM 6.4 mg/dL (8.5-10.1); MAGNESIUM 1.8 mg/dL (1.8-2.4); POTASSIUM 3.3 mmol/L (3.5-5.1); TOTAL BILIRUBIN 0.4 mg/dL (0.2-1.0); TOTAL PROTEIN 5.9 g/dL (6.4-8.2)
[2020-05-21 07:59] LABS: ABSOLUTE NEUTROPHILS 3.8 thou/uL (1.4-8.2); NUCLEATED RBCS 2 /100WBC; PLATELET ESTIMATE NORMAL
--- NOTE | 2020-05-21 14:30 | NUR ---
TRANSFERED PT VIA BED ON . ALL BELONGINGS WITH PT.
--- NOTE | 2020-05-21 16:16 | NUR ---
CALLED DR. HALLMAN ([facility]) FOR ORDER CLARIFICATION. ONLY WANTS TOTAL 40MCG KCL TODAY. 1800 DOSE D/CD.
[2020-05-22 03:39] VITALS: BP 146/69
[2020-05-22 04:51] LABS: HEMATOCRIT 25.7 % (37.0-47.0); HEMOGLOBIN 8.4 gm/dL (12.0-15.0); MCH 29.5 pg (26.0-34.0); MCHC 32.7 g/dL (28.0-37.0); MCV 90.4 fL (80.0-100.0); RBC 2.84 mil/uL (4.20-5.00); WBC 7.1 thou/uL (4.0-11.0)
[2020-05-22 05:04] LABS: ALBUMIN 1.6 g/dL (3.4-5.0); CALCIUM 6.3 mg/dL (8.5-10.1); CREATININE 3.2 mg/dL (0.6-1.0); PHOSPHORUS 7.4 mg/dL (2.6-4.7); POTASSIUM 3.8 mmol/L (3.5-5.1)
--- NOTE | 2020-05-22 06:47 | NUR ---
ASSUMED CARE AT 1900, ALERT AND ORIENTED, SR ON THE MONITOR, DENIES PAIN OR SOB, ASSESSMENTS CHARTED, REFUSED INSULIN AT MIDNIGHT, EDUCATED ON IMPORTANCE OF B/S CONTROL, PT BS IN THE 300S THIS MORNING, INSULIN GIVEN , REFUSED BIPAP TONIGHT, REMAINED ON 7L HIGH FLOW NC, O2SAT IN THE LOW 90S, NO NEEDS AT THIS TIME, WILL PASS ON REPORT
[2020-05-22 08:00] VITALS: BP 141/66
--- NOTE | 2020-05-22 09:07 | NUR ---
madisyn for op center returned cm, updates to be sent to op center and when ready for dc will be dc back to facility.
[2020-05-22 12:00] VITALS: BP 139/64
--- NOTE | 2020-05-22 15:48 | NUR ---
ASSESSMENT CHARTED. PT ALERT AND ORIENTED WITH FORGETFULNESS. VSS. DENIED HAVING PAIN. BREATHING TREATMENT PROVIDED ORDERED. NO CONCERNS AT THIS TIME.
[2020-05-22 16:00] VITALS: BP 135/64
--- NOTE | 2020-05-22 16:27 | NUR ---
FAXED CLINICAL UPDATE TO [facility] RECEIVED CONFIRMATION.
[2020-05-22 20:07] VITALS: BP 131/66
[2020-05-23 03:35] LABS: HEMATOCRIT 26.5 % (37.0-47.0); HEMOGLOBIN 8.6 gm/dL (12.0-15.0); MCH 29.1 pg (26.0-34.0); MCHC 32.3 g/dL (28.0-37.0); MCV 90.1 fL (80.0-100.0); RBC 2.94 mil/uL (4.20-5.00); RDW 14.6 % (10.5-14.5)
[2020-05-23 03:38] LABS: CALCIUM 6.5 mg/dL (8.5-10.1); CREATININE 2.8 mg/dL (0.6-1.0)
[2020-05-23 05:00] VITALS: BP 139/68
--- NOTE | 2020-05-23 08:10 | NUR ---
ALERT,ORIENTED.BIPAP PRN AND 7LNC WHEN OFF BIPAP.DELANEY TO DD.PICC LINE INTACT.MONITOR SHOWS SR.POC CONTINUED.
[2020-05-23 09:21] VITALS: BP 153/73
--- NOTE | 2020-05-23 10:35 | NUR ---
Visited with patient. Cont to update [facility]. Patient is not on BIPAP at [facility]. Updated Aure at [facility].
--- NOTE | 2020-05-23 12:13 | NUR ---
FAXED CLINICAL UPDATE TO [facility] RECEIVED CONFIRMATION AND LEFT MSG WITH LINDA IN ADM.
[2020-05-23 12:19] VITALS: BP 125/53
--- NOTE | 2020-05-23 13:09 | NUR ---
Assess due to length of stay. Admit with septic shock-resolved, acute/chronic hypoxic respiratory failure. Hx left BKA, DM, PTSD. Elevated renal labs and BG levels. ST follows-pt endentulous, often noncompliant w/ swallow precautions. Large wt discrepancies 128-145 lb this admit and usual wts trend closer to 140 lb. Palliative care measures have been discussed however pt denies and remains full code. Ate 100%. Add carb control to diet order. Physician has indicated protein calorie malnutrition: RD defer. Low nutrition risk
[2020-05-23 16:00] VITALS: BP 122/63
--- NOTE | 2020-05-23 18:27 | NUR ---
assumed care 0700. pt 02 sat decreasing into 80's despite increase of 02. RT called to assist w/bipap. pt not complying w/bipap. Improved 02 w/ 60% 02 and 30L of optiflow. refused dinner. c/o of nausea at time. alleviated w/prn. Not adequate output. vss, afebrile. no bm. Not progressing in nursing plan of care.
[2020-05-23 19:00] VITALS: BP 133/75
[2020-05-24 05:21] VITALS: BP 142/63
--- NOTE | 2020-05-24 05:48 | NUR ---
ASSUMED CARE OF PATIENT AT 1900. REFUSING INSULIN, MAKES MINIMAL EFFORT TO PARTICIPATE IN CARE. NO S/S OF DISTRESS. PROGRESSING TOWARDS POC GOALS.
[2020-05-24 06:00] LABS: CALCIUM 6.2 mg/dL (8.5-10.1); CREATININE 2.3 mg/dL (0.6-1.0); POTASSIUM 3.8 mmol/L (3.5-5.1)
[2020-05-24 07:10] VITALS: BP 139/62
[2020-05-24 11:30] VITALS: BP 148/71
[2020-05-24 15:15] VITALS: BP 155/83
[2020-05-24 17:42] LABS: HCO3 23.3 mmol/L (22.0-26.0); PCO2 36.9 mmHg (35.0-45.0); PO2 67.7 mmHg (80.0-100.0); pH 7.418 (7.360-7.450); sO2 93.9 % (92.0-98.0)
--- NOTE | 2020-05-24 19:00 | NUR ---
PATIENT IS PROGRESSING SLOWLY TOWARDS OUTCOME GOALS, CONTINUES TO REFUSE INSULIN, EDUCATED ON RISK OF STROKE AND IN AND , VERBALIZED UNDERSTANDING BUT CONTINUES TO REFUSE THE SLIDING SCALE INSULIN. C/O NAUSEA, TOLERATING LIQUIDS WITHOUT EMESIS. REPOSITIONED FOR COMFORT. PRESENTLY ON THE OPTIFLOW. WAS ON BIPAP PER HER REQUEST THIS AFTERNOON FROM 1300 TO 1500 BUT REQUESTING IT BE REMOVED AFTER 15 MINS.
[2020-05-24 19:20] VITALS: BP 144/59
[2020-05-25 04:51] VITALS: BP 127/56
[2020-05-25 05:47] LABS: CREATININE 2.2 mg/dL (0.6-1.0); POTASSIUM 3.5 mmol/L (3.5-5.1)
[2020-05-25 06:05] LABS: HEMATOCRIT 25.9 % (37.0-47.0); HEMOGLOBIN 8.6 gm/dL (12.0-15.0); MCH 29.7 pg (26.0-34.0); MCHC 33.1 g/dL (28.0-37.0); MCV 89.9 fL (80.0-100.0); RBC 2.89 mil/uL (4.20-5.00); RDW 14.7 % (10.5-14.5); WBC 10.7 thou/uL (4.0-11.0)
[2020-05-25 08:25] VITALS: BP 1128/59
[2020-05-25 12:00] VITALS: BP 130/58
[2020-05-25 16:40] VITALS: BP 120/62
[2020-05-25 20:45] VITALS: BP 136/72
[2020-05-25 21:48] VITALS: BP 123/58
[2020-05-26 05:10] VITALS: BP 137/62
--- NOTE | 2020-05-26 07:48 | NUR ---
PT RESTED THROUGH THE NOC IN NO ACUTE DISTRESS.REMAINS ON O2 AT 6LITERS PNC.VSS.SR ON MONITOR.ISOLATION MAINTAINED.NO CONCERNED VOICED BY THE PATIENT.
[2020-05-26 08:05] VITALS: BP 137/65
[2020-05-26] MEDS ORDERED: LINEZOLID600 MG PO (11:33)
[2020-05-26] MEDS ORDERED: NORVASC 2.5 MG2.5 M1 PO (11:36)
[2020-05-26] MEDS ORDERED: LANTUS SUBQ (11:38)
[2020-05-26 11:50] VITALS: BP 127/69
--- NOTE | 2020-05-26 12:10 | NUR ---
FAXED REFERRAL WITH NEGATIVE COVID RESULT TO [facility] WITH NOTATION THAT PATIENT WILL DISCHARGE TODAY, 05/26/20 OR TOMORROW, 05/27/20. WILL CONFIRM THEY RECEIVED AND BED AVAILABILITY. [facility] P [phone]; FAX [phone]; [facility] P [phone]; FAX [phone]; [facility] [phone]
[2020-05-26 15:09] VITALS: BP 127/69
[2020-05-26 16:50] VITALS: BP 128/75
--- NOTE | 2020-05-26 16:53 | NUR ---
Case discussed with the care team. The attending spoke with the pt and discussed [facility] referral to [facility] and pt agreeable. Referral called and faxed to their liason. They have accepted and gotten [place] medicaid auth this afternoon for admission tomorrow. [facility] ambulance transport arranged per [facility] for a 1400 transport tomorrow. Bed availablity will need to be confirmed with their weekend liason tomorrow Margie and she will give fax number for the dc summary and instructions as well as report number. If they can not take tomorrow; [facility] will need to be contacted to move the transport to friday or friday per Margie's instructions [phone]. All parties updated including [facility] at [facility].
--- NOTE | 2020-05-26 17:06 | NUR ---
patient possible discharge tomorrow to facility. patient has adequate urine output. no increasing oxygen demands. patient small bites for meals. contact precautions.
[2020-05-26 19:25] VITALS: BP 135/67
[2020-05-27 04:00] VITALS: BP 133/69
[2020-05-27 08:30] VITALS: BP 124/69
[2020-05-27 12:20] VITALS: BP 124/62
[2020-05-27 16:35] VITALS: BP 133/66
[2020-05-27 19:53] VITALS: BP 135/66
--- NOTE | 2020-05-28 03:04 | NUR ---
PT IS ALERT AND ORIENTED BUT VERY DROWSY. ON 6 LITERS NASAL CANULA. LUNGS ARE COARSE. ANTIBIOTICS GIVEN ORDERED. MRSA PRECAUTIONS AT THIS TIME. DELANEY PRESENT. LEFT UPPPER ARM PICC IN PLACE. LEFT BELOW KNEE AMPUTEE. MAY GO TO [facility] TODAY TRANSFER. TURNS AND USE BARRIER CREAM ON PT PER NURSING AT THIS TIME. WILL CONTINUE TO MONITOR AND ASSESS PER NURSING. NO COMPLAINTS OF PAIN NOTED.
[2020-05-28 08:30] VITALS: BP 130/64
[2020-05-28 11:55] VITALS: BP 128/66
[2020-05-28 11:58] LABS: ABSOLUTE NEUTROPHILS 10.3 thou/uL (1.4-8.2); BASOPHILS 0.4 % (0.0-2.0); EOSINOPHILS 0.3 % (0.0-3.0); HEMATOCRIT 28.8 % (37.0-47.0); HEMOGLOBIN 9.3 gm/dL (12.0-15.0); LYMPHOCYTES 3.3 % (24.0-44.0); MCH 29.4 pg (26.0-34.0); MCHC 32.2 g/dL (28.0-37.0); MCV 91.2 fL (80.0-100.0); MONOCYTES 1.7 % (1.0-8.0); PLATELET COUNT 225 thou/uL (150-400); POLYS 94.3 % (36.0-66.0); RBC 3.15 mil/uL (4.20-5.00); RDW 14.2 % (10.5-14.5)
[2020-05-28 12:09] LABS: ALBUMIN 1.5 g/dL (3.4-5.0); CREATININE 1.9 mg/dL (0.6-1.0); POTASSIUM 4.1 mmol/L (3.5-5.1); TOTAL BILIRUBIN 0.4 mg/dL (0.2-1.0); TOTAL PROTEIN 4.8 g/dL (6.4-8.2)
[2020-05-28 16:40] VITALS: BP 129/70
--- NOTE | 2020-05-28 17:19 | NUR ---
PT LEFT UNIT AT THIS TIME WITH [facility], PT IS STABLE AT THIS TIME AND REPORT CALLED AND GAVE TO CARMEN DON AT RECEIVING FACILITY. NO CONCERNS AT THIS TIME.
== END 2020-05-28 21:27 | DRG 871 ==
LOC: ER 07:59 → EROBS 11:45 → 2N 11:45 → ICU 12:10 → 2N 05-21 15:00
PROVIDERS: Emergency Medicine; Hospitalist; Internal Medicine; Internal Medicine Nephrology; Internal Medicine Pulmonary Disease; Nurse Practitioner; Specialist; ADMIT Hospitalist; ATTEND Hospitalist
DX: A41.9 Sepsis, unspecified organism (principal); R65.21 Severe sepsis with septic shock; N17.0 Acute kidney failure with tubular necrosis; J96.21 Acute and chronic respiratory failure with hypoxia; J69.0 Pneumonitis due to inhalation of food and vomit; E87.2 Acidosis; N39.0 Urinary tract infection, site not specified; I13.0 Hypertensive heart and chronic kidney disease with heart failure and stage 1 through stage 4 chronic kidney disease, or unspecified chronic kidney disease; G93.40 Encephalopathy, unspecified; Z16.12 Extended spectrum beta lactamase (ESBL) resistance; J44.1 Chronic obstructive pulmonary disease with (acute) exacerbation; F03.90 Unspecified dementia, unspecified severity, without behavioral disturbance, psychotic disturbance, mood disturbance, and anxiety; I50.9 Heart failure, unspecified; K21.9 Gastro-esophageal reflux disease without esophagitis; M19.90 Unspecified osteoarthritis, unspecified site; E11.51 Type 2 diabetes mellitus with diabetic peripheral angiopathy without gangrene; F43.10 Post-traumatic stress disorder, unspecified; N18.2 Chronic kidney disease, stage 2 (mild); E11.22 Type 2 diabetes mellitus with diabetic chronic kidney disease; E87.5 Hyperkalemia; K52.9 Noninfective gastroenteritis and colitis, unspecified; J84.89 Other specified interstitial pulmonary diseases; J84.10 Pulmonary fibrosis, unspecified; G89.4 Chronic pain syndrome; F41.1 Generalized anxiety disorder; L28.0 Lichen simplex chronicus; B96.1 Klebsiella pneumoniae [K. pneumoniae] as the cause of diseases classified elsewhere; E87.6 Hypokalemia; R53.81 Other malaise; E83.51 Hypocalcemia; Z20.822 Contact with and (suspected) exposure to COVID-19; Z99.81 Dependence on supplemental oxygen; Z79.899 Other long term (current) drug therapy; Z79.4 Long term (current) use of insulin; Z79.82 Long term (current) use of aspirin; Z91.012 Allergy to eggs; Z88.1 Allergy status to other antibiotic agents; Z88.8 Allergy status to other drugs, medicaments and biological substances; Z88.2 Allergy status to sulfonamides; Z87.891 Personal history of nicotine dependence; Z89.512 Acquired absence of left leg below knee; Z91.02 Food additives allergy status; Z91.018 Allergy to other foods
CPT/HCPCS: 10078; 10081; 27000; 65040; 85076